=== PATIENT | male | born 1955 | race Caucasian/White ===

== ENCOUNTER → 2022-01-18 | Outpatient (CLI) | payer MEDICARE, SELFPAY ==
--- NOTE | 2022-01-18 07:33 | ECHOCS_ITS ---
Reason For Study: S/P CABG Procedure This was a 2D Doppler, Color Flow transthoracic echocardiogram. The study was technically difficult. Due to body habitus. Contrast injection was performed. Exam performed in department. Left Ventricle Normal LV size. Left ventricular systolic function is normal. The estimated ejection fraction is 55 %. Stage 1 diastolic dysfunction. No regional wall motion abnormalities noted. Right Ventricle Normal RV size. Normal systolic function. Atria Normal left atrium. Normal right atrium. Mitral Valve Normal mitral valve. Tricuspid Valve The tricuspid valve is not well visualized. Aortic Valve The aortic valve is not well visualized. Pulmonic Valve The pulmonic valve is not well visualized. Great Vessels Normal aortic root. The pulmonary artery is normal size. Normal inferior vena cava. Pericardium/Pleural No pericardial effusion. Medication Diluted definity 4.0ml given slow IV push to enhance endocardial definition. MMode/2D Measurements & Calculations LVIDd: 5.5 cm IVSd: 1.1 cm Ao root diam: 3.6 cm LVIDs: 3.3 cm LVPWd: 1.1 cm RVDd: 3.2 cm FS: 39.4 % LAV(MOD-bp): 65.8 ml LA A4 area: 20.5 cm2 LA dimension(2D): 3.9 cm LAV(MOD-bp) Indexed: 28.9 ml/m2 LAV(MOD-sp2): 63.4 ml LAV(MOD-sp4): 63.4 ml Time Measurements MV dec time: 0.23 sec Doppler Measurements & Calculations MV E max jose guadalupe: 55.3 cm/sec Lat Peak E' Jose Guadalupe: 12.3 cm/sec Med Peak E' Jose Guadalupe: 11.2 cm/sec MV A max jose guadalupe: 68.3 cm/sec E/E' lat: 4.5 E/E' med: 4.9 MV E/A: 0.81 MV dec slope: 246.0 cm/sec2 Ao V2 max: 91.1 cm/sec LV V1 max: 67.0 cm/sec Ao max P.3 mmHg LV V1 max P.8 mmHg PA V2 max: 78.8 cm/sec ECHO/Echo Complete W/ Contrast Interpretation Summary Normal LV size. Left ventricular systolic function is normal. The estimated ejection fraction is 55 %. Stage 1 diastolic dysfunction. Contrast injection was performed. Ordering Physician: Cedrick Mcduffie Referring Physician: Martir Bolanos Performed By: Kecia Villalpando RDCS, RVT
--- NOTE | 2022-01-18 18:49 | STRESSREP ---
Stress Test Report Exercise myocardial perfusion stress test 66-year-old male with a history of chest pain. Stress protocol: Resting EKG demonstrates normal sinus rhythm with a rate of 75 bpm normal intervals are noted resting blood pressure is 120/74 mmHg. Patient exercised according to regular Jaspreet protocol for total duration of 6 minutes. The maximum heart rate attained was 164 bpm which was 106% of maximum predicted heart rate the maximum workload was 7 metabolic equivalents. At rest there were no ST or T wave changes noted to suggest ischemia and at peak exercise upsloping ST changes were noted with did not meet the criteria for ischemia. No clinical angina was noted and test was terminated due to dyspnea and fatigue and the target heart rate being achieved. The peak blood pressure was 178/70 mmHg. Myocardial perfusion protocol. 15.0 mCi of technetium 99m sestamibi was injected at rest. The patient exercised according to regular Jaspreet protocol for total duration of 6 minutes. At peak exercise 44.9 mCi of technetium 99m sestamibi was injected. Stress and rest images were reconstructed and compared in the short axis vertical long and horizontal long axis. Gated images were also obtained to Perfusion SPECT analysis: Review of the stress images demonstrate normal uptake of tracer noted in all areas of the myocardium. The resting images similar demonstrate normal uptake of tracer noted in all areas of the myocardium. No areas of reversibility are noted suggest ischemia and no previous infarct is noted. Gated SPECT analysis: The gated ejection fraction is 58%. Conclusion: Normal exercise myocardial perfusion stress test at a moderate workload. Preserved ejection fraction.
== END | disposition home or self-care (01) ==
PROVIDERS: PCP Internal Medicine; Referring Provider Internal Medicine Cardiovascular Disease; Visit Provider Internal Medicine Cardiovascular Disease
DX: I25.10 Atherosclerotic heart disease of native coronary artery without angina pectoris (principal); Z95.1 Presence of aortocoronary bypass graft
CPT/HCPCS: 78452; 93017; 93306; A9500; Q9957; A4216; C8929

== ENCOUNTER → 2025-05-11 | Outpatient (CLI) | payer MEDICARE, SELFPAY ==
--- OUTSIDE RECORDS SUMMARY | 2025-05-11 07:04 | XMS RPT_ITS | CCD ---
Author Organization [facility] Care Team Providers Care Bleach Chlorinator Name Role Phone DWIGHT DU Unavailable Unavailable DWIGHT DU Unavailable Unavailable Martir Muller Unavailable Unavailable Luis Miguel DOE, Martir Yang Primary Care Provider Dr. Martir Muller Primary Care Provider Shelia Cruz Attending Provider Unavailable Dr. Martir Muller Referring Provider Dr. Cedrick Mcduffie Attending Provider Martir Muller MD Primary Care Provider Martir Muller MD Primary Care Provider LUIS MIGUEL DOE, DR MCMAHAN Primary Care Physician LUIS MIGUEL DOE, DR MCMAHAN Primary Care Unavaila BARB Le DO Attending Unavailable Martir Muller MD Primary Care Provider Sanchez SPE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, Jennifer M Unavailable EULA DÍAZ Attending Unavailable MARTIR MULLER Primary Care Unavailable MARTIR MULLER Referring Unavailable MARTIR MULLER Primary Care Unavailable MARTIR MULLER Attending Unavailable MARTIR MULLER Primary Care Unavailable MARTIR MULLER Referring Unavailable MARTIR MULLER Primary Care Unavailable MARTIR MULLER Referring Unavailable LUIS MIGUEL, MARTIR Yang Primary Care Unavailable MARTIR MULLER Attending Unavailable MARTIR MULLER Primary Care Unavailable EULA DÍAZ Attending Unavailable MARTIR MULLER Primary Care Unavailable Cedrick Mcduffie Attending Unavailable Martir Muller Primary Care Unavailable Martir Muller Referring Unavailable Martir Muller Primary Care Unavailable Martir Muller Referring Unavailable Roof ASSEMBLER ADJUSTER, Erasto H Attending Unavailable Cedrick Mcduffie Referring Unavailable Martir Muller Primary Care Unavailable Cedrick Mcduffie Attending Unavailable Cedrick Mcduffie Referring Unavailable Martir Muller Primary Care Unavailable Cedrick Mcduffie Attending Unavailable Luis Miguel DOE, Dr. Mcmahan Primary Care Physician Dr. Martir Muller MD Referring Provider Froy DOE, Dr. Philip Attending Physician Medications Current Medications Medication Drug Class(es) Dates Sig (Normalized) Sig (Original) amLODIPine 2.5 mg oral tablet (20 sources) Dihydropyridine Calcium Channel Angeline Start: 07-11-2021 End: 07-24-2024 take 1 tablet by mouth once daily amLODIPine (NORVASC) 2.5 mg tablet Indications: Primary hypertension Take 1 tablet by mouth once daily. 90 tablet 3 07/24/2024 Active Comment on above: Take 1 tablet by marck th once daily. aspirin 81 mg delayed release oral tablet (20 sources) Platelet Aggregation Inhibitor, Nonsteroidal Anti-inflammatory Drug Start: 12-19-2021 take 1 tablet by mouth once daily Start: 03-05-2013 take 1 tablet by marck th once daily at mealtime Aspirin 81 mg Tab Indications: S/P CABG x 4 Take 1 tablet by mouth once daily. Take with food. 30 tablet 11 03/05/2013 Active Comment on above: Take 1 tablet by marck th once daily. Take with food. Take 81 mg by mouth. Take 81 mg by mouth once daily. atorvastatin 40 mg oral tablet (20 sources) HMG-CoA Reductase Inhibitor Start: 1 End: 4 take 1 tablet by mouth once daily Comment on above: Take 1 tablet by marck th daily at bedtime. benoxinate hydrochloride 4 mg/ml / fluorescein sodium 3 mg/ml ophthalmic solution (2 sources) Diagnostic Dye Start: 4 End: 4 fluorescein-benoxin ate 0.3-0.4 % 1 Drop (FLURESS) Blood-Glucose Meter monitoring kit (2 sources) Start: 5 Blood-Glucose Meter monitoring kit Indications: Type 2 diabetes mellitus with stage 2 chronic kidney disease, without long-term current use of insulin ([facility]) Glucose Meter of Choice - Kit - Dx: Other DM Code E11.22; N18.2. Insulin: No. 1 each 01/28/2025 Active Start: 01-28-2025 End: 01-29-2025 Blood-Glucose Meter monitori ng kit Indications: Type 2 diabetes mellitus with stage 2 chronic kidney disease, without long-term current use of insulin ([facility]) Glucose Meter of Choice - Kit - Dx: Other DM Code E11.22; N18.2. Insulin: No. 1 each 01/28/2025 01/29/2025 Active COMPOUNDED PRESCRIPTION (20 sources) Start: 09-30-2007 COMPOUNDED PRESCRIPTION arthermend over the counter med for arthritis 0 09/30/2007 Active Comment on above: arthermend over the counter med for arthritis dapagliflozin 10 mg oral tablet (1 source) Sodium-Glucose Cotransporter 2 Inhibitor Start: 04-23-2025 End: 05-07-2025 take 1 tablet by mouth once daily Dapagliflozin Propanediol (Farxiga) 10 mg tablet Discontinued 10 mg PO daily 90 3 April 22, 2025 11:00pm May 07, 2025 4:49pm empagliflozin 10 mg oral tablet (1 source) Sodium-Glucose Cotransporter 2 Inhibitor Start: 04-21-2025 End: 04-23-2025 take 1 tablet by mouth once daily Empagliflozin (Jardiance) 10 mg tablet Discontinued 10 mg PO DAILY 90 3 April 20, 2025 11:00pm April 23, 2025 11:47am History of coronary artery bypass surgery Diabetes mellitus Primary hypertension Hyperlipidemia Presence of aortocoronary bypass graft Type 2 diabetes mellitus without complications Essential (primary) hypertension Mixed hyperlipidemia lisinopril 40 mg oral tablet (20 sources) Angiotensin Converting Enzyme Inhibitor Start: 04-13-2021 End: 04-09-2024 take 1 tablet by mouth once daily Comment on above: Take 1 tablet by marck th once daily. metoprolol tartrate 25 mg oral tablet (20 sources) beta-Adrenergic Angeline Start: 04-13-2021 End: 04-09-2024 take 1 tablet by mouth twice daily Comment on above: Take 1 tablet by marck th twice daily. Take 1 tablet by marck th two times a day. Corsica-3 Fatty Acids (1 source) Start: 12-19-2021 take 500 mg by mouth once daily Corsica-3 Fatty Acids Active 500 MG PO DAILY December 19, 2021 12:00am Corsica-3 Fatty Acids 500 mg capsule (1 source) Start: 12-19-2021 take 1 capsule by mouth once daily omega-3/epa/fish oil (OMEGA-3 FATTY ACIDS-EPA ORAL) (20 sources) Start: 12-19-2021 omega-3/epa/fish oil (OMEGA-3 FATTY ACIDS-EPA ORAL) Take by mouth once daily. 12/19/2021 Active Start: 12-19-2021 omega-3/epa/fi sh oil (OMEGA-3 FATTY ACIDS-EPA ORAL) Take by mouth once daily. 0 12/19/2021 Active Start: 12-19-2021 omega-3/epa/fi sh oil (OMEGA-3 FATTY ACIDS-EPA ORAL) Take by mouth. 0 12/19/2021 Active Comment on above: Take by mouth. Take by mouth once d aily. phenylephrine hydrochloride 25 mg/ml ophthalmic solution (8 sources) alpha-1 Adrenergic Agonist Start: 06-09-2024 End: 06-10-2024 PHENYLephrine 2.5 % 1 Drop (AK-DILATE, JIM-SYNEPHRINE) Start: 06-09-2024 End: 06-10-2024 1 Drop, BOTH EYES, DIRECT ED, Starting on Sun06/09/24 at 1400, Until Sun06/10/24 at 0159, Administer for dilation PROTECT FROM LIGHT Start: 02-05-2024 End: 02-06-2024 PHENYLephrine 2.5 % 1 Drop ( AK-DILATE, JIM-SYNEPHRINE) Start: 01-08-2024 End: 01-09-2024 PHENYLephrine 2.5 % 1 Drop ( AK-DILATE, JIM-SYNEPHRINE) Start: 06-08-2023 End: 06-09-2023 PHENYLephrine 2.5 % 1 Drop ( AK-DILATE, JIM-SYNEPHRINE) Start: 10-24-2022 End: 10-25-2022 PHENYLephrine 2.5 % 1 Drop ( AK-DILATE, JIM-SYNEPHRINE) proparacaine hydrochloride 5 mg/ml ophthalmic solution (6 sources) Local Anesthetic Start: 06-09-2024 End: 06-10-2024 proparacaine 0.5 % 1 Drop (ALCAINE) Start: 06-09-2024 End: 06-10-2024 1 Drop, BOTH EYES, DIRECT ED, Starting on Sun06/09/24 at 1400, Until Sun06/10/24 at 0159, Administer for pneumo tonometry, tonopen tonometry, or pachymetry. In the event of a proparacaine shortage, administer tetracaine 0.5% ophthalmic drops 1 drop in the left eye as directed for pneumo tonometry, tonopen tonometry, or pachymetry Start: 01-08-2024 End: 01-09-2024 proparacaine 0.5 % 1 Drop (A LCAINE) Start: 06-08-2023 End: 06-09-2023 proparacaine 0.5 % 1 Drop (A LCAINE) Start: 10-24-2022 End: 10-25-2022 proparacaine 0.5 % 1 Drop (A LCAINE) Semaglutide (1 source) Start: 04-21-2025 End: 05-07-2025 Semaglutide (Ozempic) 0.25 mg or 0.5 mg (2 mg/3 mL) pen injector Discontinued 0.25 mg SC EVERY WEEK 3 28 0 April 20, 2025 11:00pm May 18, 2025 12:00am May 07, 2025 4:49pm History of coronary artery bypass surgery Diabetes mellitus Primary hypertension Hyperlipidemia Presence of aortocoronary bypass graft Type 2 diabetes mellitus without complications Essential (primary) hypertension Mixed hyperlipidemia for 4 weeks tropicamide 10 mg/ml ophthalmic solution (8 sources) Anticholinergic Start: 06-09-2024 End: 06-10-2024 tropicamide 1 % 1 Drop (MYDRIACYL) Start: 06-09-2024 End: 06-10-2024 1 Drop, BOTH EYES, DIRECT ED, Starting on Sun06/09/24 at 1400, Until Sun06/10/24 at 0159, Administer for dilation Start: 02-05-2024 End: 02-06-2024 tropicamide 1 % 1 Drop (MYDR IACYL) Start: 01-08-2024 End: 01-09-2024 tropicamide 1 % 1 Drop (MYDR IACYL) Start: 06-08-2023 End: 06-09-2023 tropicamide 1 % 1 Drop (MYDR IACYL) Start: 10-24-2022 End: 10-25-2022 tropicamide 1 % 1 Drop (MYDR IACYL) Completed/Discontinued Medications Medication Drug Class(es) Dates Sig (Normalized) Sig (Original) cyclobenzaprine hydrochloride 10 mg oral tablet (11 sources) Muscle Relaxant Start: 05-10-2023 End: 10-18-2023 take 1 tablet by mouth three times daily as needed for muscle spasms cyclobenzaprine (FLEXERIL) 10 mg tablet Indications: Spasm of muscle of lower back Take 1 tablet by mouth three times a day as needed for muscle spasm. 30 tablet 0 05/10/2023 10/18/2023 Discontinued Start: 10-05-2022 End: 10-08-2022 take 1 tablet by mouth three times daily Flexeril use cyclobenzaprine Dose : 10 mg =, Oral, TID, X 3 day(s), # 8 tab(s), 0 Refill(s), 10/08/22 22:57:00 EDT Start Date: 10/05/22 Stop Date: 10/08/22 Status: Ordered Comment on above: Take 1 tablet by marck th three times a day as needed for muscle spasm. meloxicam 15 mg oral tablet (13 sources) Nonsteroidal Anti-inflammatory Drug Start: End: take 1 tablet by mouth once daily at mealtime meloxicam (MOBIC) 15 mg tablet Indications: Spasm of muscle of lower back , Stiff neck Take 1 tablet by mouth once daily. With food. 30 tablet 0 05/10/2023 10/18/2023 Discontinued Start: 04-18-2023 End: 05-03-2023 take 1 tablet by mouth once daily at mealtime meloxicam (MOBIC) 15 mg tablet Indications: Stiff neck , Spasm of muscle of lower back Take 1 tablet by mouth once daily for 15 days. With food. 15 tablet 0 04/18/2023 05/03/2023 Active Comment on above: Take 1 tablet by marck th once daily for 15 days. With food. Take 1 tablet by marck th once daily. With food. Corsica-3 Fatty Acids (FISH OIL) 500 mg cap (2 sources) Start: 07-17-2013 take 2 capsules by mouth once daily Corsica-3 Fatty Acids (FISH OIL) 500 mg cap Take 2 capsules by mouth once daily. 0 07/17/2013 Active Comment on above: Take 2 capsules by m outh once daily. Corsica-3 Fatty Acids 500 mg cap (19 sources) Start: 07-17-2013 End: 10-18-2023 take 2 capsules by mouth once daily Corsica-3 Fatty Acids 500 mg cap Take 2 capsules by mouth once daily. 0 07/17/2013 10/18/2023 Discontinued Start: 07-17-2013 take 2 capsules by m outh once daily Corsica-3 Fatty Acids 500 mg cap Take 2 capsules by mouth once daily. 0 07/17/2013 Active Comment on above: Take 2 capsules by m outh once daily. Problems Active Problems Problem Classification Problem Date Documented Date Episodic/Chronic Blindness and vision defects (10 sources) Bilateral regular astigmatism; Translations: [Regular astigmatism, bilateral] Episodic Cataract (5 sources) Bilateral senile combined form cataracts of eyes; Translations: [Combined forms of age-related cataract, bilateral] Chronic Chronic kidney disease (2 sources) Chronic kidney disease, stage 2 (mild); Translations: [Type 2 diabetes mellitus with stage 2 chronic kidney disease, without long-term current use of insulin (HCC)] Onset: 10-18-2021 Chronic Conduction disorders (2 sources) Bundle branch block; Translations: [Nonspecific intraventricular block] 12-19-2021 Chronic Coronary atherosclerosis and other heart disease (20 sources) Coronary arteriosclerosis; Translations: [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] Onset: 07-17-2013 07-17-2013 Chronic Diabetes mellitus with complications (20 sources) Type 2 diabetes mellitus; Translations: [Type 2 diabetes mellitus with diabetic chronic kidney disease] Onset: 10-14-2021 Chronic Diabetes mellitus without complication (11 sources) Type 2 diabetes mellitus without complication; Translations: [Type 2 diabetes mellitus without complications] Onset: 04-13-2021 Chronic Disorders of lipid metabolism (20 sources) Pure hypercholesterolemia; Translations: [Pure hypercholesterolemia, unspecified] Onset: 10-07-2007 06-28-2015 Chronic Essential hypertension (20 sources) Hypertensive disorder; Translations: [Essential (primary) hypertension] Onset: 09-30-2007 Resolved: 11-06-2012 06-26-2014 Chronic Genitourinary congenital anomalies (1 source) Congenital buried penis; 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] 05-01-2023 Chronic Immunizations and screening for infectious disease (2 sources) Patient encounter status; Translations: [Encounter for immunization] Episodic Other eye disorders (3 sources) Posterior vitreous detachment of left eye; Translations: [Vitreous degeneration, left eye] 01-08-2024 Chronic Other eye disorders (1 source) Meibomian gland dysfunction of bilateral eyes; Translations: [Meibomian gland dysfunction right eye, upper and lower eyelids] 06-09-2024 Episodic Other nutritional; endocrine; and metabolic disorders (13 sources) Obesity; Translations: [Obesity, unspecified] Onset: 09-30-2007 Resolved: 02-09-2017 02-09-2017 Chronic Other nutritional; endocrine; and metabolic disorders (3 sources) Body mass index 40+ - severely obese; Translations: [Obesity, Class III, BMI 40-49.9 (morbid obesity) ([facility])] Onset: 01-28-2025 01-28-2025 Chronic Retinal detachments; defects; vascular occlusion; and retinopathy (5 sources) Hemorrhage of left retina; Translations: [Retinal hemorrhage, left eye] Chronic Screening and history of mental health and substance abuse codes (6 sources) Ex-smoker; Translations: [Personal history of nicotine dependence] Onset: 01-28-2025 01-28-2025 Episodic Unclassified (1 source) Coronary artery bypass graft operation planned 08-30-2014 Unclassified (1 source) Obesity, Class III, BMI 40-49.9 (morbid obesity) ([facility]); Translations: [Obesity, Class III, BMI 40-49.9 (morbid obesity) ([facility])] Onset: 01-28-2025 Past or Other Problems Problem Classification Problem Date Documented Da te Episodic/Chronic Acute myocardial infarction (11 sources) Myocardial infarction; Translations: [ST elevation (STEMI) myocardial infarction of unspecified site] Onset: 02-14-2013 Resolved: 06-28-2015 06-28-2015 Chronic Cardiac dysrhythmias (11 sources) Cardiac arrhythmia; Translations: [Cardiac arrhythmia, unspecified] Onset: 09-30-2007 Resolved: 11-06-2012 11-06-2012 Chronic Coronary atherosclerosis and other heart disease (2 sources) Presence of aortocoronary bypass graft; Translations: [Aortocoronary bypass status] Onset: 02-18-2013 Episodic Diabetes mellitus without complication (12 sources) Impaired fasting glycemia; Translations: [Impaired fasting glucose] Onset: 02-07-2017 Resolved: 10-14-2021 02-07-2017 Episodic Genitourinary symptoms and ill-defined conditions (14 sources) Abnormal urinary stream; Translations: [Other difficulties with micturition] Onset: 04-13-2021 Resolved: 10-14-2021 04-13-2021 Episodic Other diseases of kidney and ureters (11 sources) Renal impairment; Translations: [Disorder of kidney and ureter, unspecified] Onset: 02-07-2017 Resolved: 04-30-2018 04-30-2018 Episodic Other liver diseases (9 sources) Elevated liver enzymes level; Translations: [Abnormal levels of other serum enzymes] Onset: 07-24-2024 07-24-2024 Episodic Other liver diseases (1 source) Abnormal levels of other serum enzymes; Translations: [Elevated liver enzymes] Onset: 07-24-2024 Episodic Other male genital disorders (13 sources) Vasculopathic erectile dysfunction; Translations: [Male erectile dysfunction, unspecified] Onset: 07-04-2016 Resolved: 04-20-2022 07-04-2016 Chronic Other nutritional; endocrine; and metabolic disorders (20 sources) Obese class II; Translations: [Obesity, unspecified] Onset: 08-07-2019 Resolved: 01-28-2025 08-07-2019 Chronic Other nutritional; endocrine; and metabolic disorders (11 sources) Obese class I; Translations: [Obesity, unspecified] Onset: 02-09-2017 Resolved: 08-07-2019 08-07-2019 Chronic Spondylosis; intervertebral disc disorders; other back problems (20 sources) Stiff neck; Translations: [Torticollis] Onset: 06-01-2023 Resolved: 10-18-2023 04-18-2023 Episodic Substance-related disorders (11 sources) Tobacco user; Translations: [Nicotine dependence, unspecified, uncomplicated] Onset: 09-30-2007 Resolved: 06-08-2011 06-08-2011 Chronic Results Test Name Value Interpretation Reference Range Facility Cardiology Visit Reporton Cardiology Visit Report [facility] [address] [place] [address] OFFICE VISIT Date of Service: 04/21/25 MR#: [id number] Acct: [id number] Name: SHAHBAZ MITTAL Rep #: [id number] : 1955 Provider: Dr. Cedrick Mcduffie MD Age/Sex: 69/M Location: [facility] Status: Signed HPI HPI History of Present Illness Details: 69-year-old man with a history of premature coronary artery disease who had a non-ST elevation myocardial infarction in January 2013. He underwent a left heart catheterization and subsequently underwent coronary bypass surgery with a left internal mammary artery to the left anterior descending artery, saphenous vein graft to first diagonal branch, saphenous vein graft to second diagonal branch, and a radial artery to the circumflex artery. He also has a history of hypertension, hyperlipidemia, and borderline diabetes mellitus. He denies chest, arm, jaw, or neck discomfort. He denies palpitations. He denies bilateral lower extremity edema. He denies claudication. He denies shortness of breath with activity, shortness of breath at rest, orthopnea, or PND. He denies chronic cough. He denies significant, sudden weight gain. He states lightheadedness when standing too quickly or bending over. He denies dizziness, near-syncope, or syncope. He denies blood in urine, blood in stool, or epistaxis. He denies fever with chills. He denies myalgia. He denies fatigue. His exercise level has remained stable. 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 Accompanied by: Self Is patient in pain?: No Allergies No Known Allergies Allergy (Verified 04/21/25 10:58) Medications ???Medication ???Instructions ???Recorded ???Confirmed ???Type amlodipine 2.5 mg tablet 2.5 mg PO DAILY 12/19/21 04/21/25 History aspirin 81 mg tablet,delayed 81 mg PO DAILY 12/19/21 04/21/25 H istory release (Adult Aspirin Regimen) atorvastatin 40 mg tablet 40 mg PO DAILY 12/19/21 04/21/25 H istory lisinopril 40 mg tablet 40 mg PO DAILY 12/19/21 04/21/25 H istory metoprolol tartrate 25 mg tablet 25 mg PO BID 12/19/21 04/21/25 His tory omega-3 fatty acids 500 mg capsule 500 mg PO DAILY 12/19/21 5 History Ejection fraction %: 55 Have you fallen in the past year?: No PFSH Medical History Obesity Diabetes Former smoker Hyperlipidemia Essential hypertension 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 Surgical History History of left heart catheterization (02/14/13) H/O coronary artery bypass surgery (02/18/13) Family History Mother Thyroid disorder Father Heart disease Social History Smoking Status: Former smoker Tobacco: How many years used: 25 how long ago did patient quit smokin years ago alcohol intake: current alcohol intake frequency: a few times a month substance use type: does not use caffeine: Yes Type: carbonated beverages Number of servings: 2 and coffee Number of servings: 1 ROS Const Const: Positive for fatigue; Negative for weakness, daytime sleepiness or difficulty sleeping ENT ENT: Negative for dizziness or Nosebleed/epistaxis Cardio Chest Pain: No Palpitations: No Edema: None Resp Respiratory: Positive for SOB with activity; Negative for SOB at rest, SOB orthopnea SOB lying down or Cough GI GI: Negative nausea, vomiting or heartburn Neuro Neuro: Negative for dizziness, lightheadedness, near syncope or weakness Endo Endo: Positive for fatigue Cardiology Exam Const Appearance: cooperative, healthy appearing, comfortable and no acute distress Nutritional Appearance: well nourished and obese Orientation: alert, awake and oriented x3 Head Head: normal to inspection Ears: hearing grossly normal bilaterally Nose: external nose normal Face and Sinus: face symmetric Mouth: moist mucous membranes Eyes General: appearance normal, both eyes and all related structures Eyelids: eyelids normal EOM: EOM intact bilaterally Neck Neck: normal visual inspection and no JVD Carotids: normal carotid upstroke Chest Chest inspection: normal inspection of the chest, symmetric chest movement and normal respiratory effort; Negative cough Auscultation: Bilateral: Clear to Auscultation Cardio Rate: (more content not included)... Normal [facility] CNOVon 01-28-2025 CNOV Office Visit (INT[facility] ) ----- SHAHBAZ MITTAL ([id number]) 1955 M Date Time Provider Department 01/28/25 10:20 AM MARTIR MULLER [facility] During your visit today, we recorded the following information about you: Pulse Blood pressure Weight Height 70/minute 124/84 121.7 kg 1.721 m Martir Muller MD 01/28/2025 11:07 AM Signed Shahbaz Mittal is a 69 year old male here for a Medicare wellness visit. Medicare Health Risk Assessment General Health Very good Exercise: Minutes/Day 40 min Exercise: Days/Week 3 days Alcohol: Daily Use Monthly or less Alcohol: Drinks/Day 1 or 2 Alcohol: 6 or more drinks Never Feel off balance No Concerns: Teeth/Dentures No Concerns: Sexual function No Troubled by feelings None of the above Frequency: Eating healthy diet More than half the days ADLs requiring help None of the above Safety precautions in home/vehicle Yes Smoke, vape, chews tobacco No Difficulty hearing Yes Difficulty seeing No Current Providers Specialists: I have reviewed specialist-related care of the patient in the medical record. Current care team: Patient Care Team: Martir Muller MD as PCP - General (Internal Medicine) Jennifer Bradford, ZAIDA.HYDROPONICS WORKER as Materials Intern (Internal Medicine) Eula Díaz OD (Optometry) Outside specialists seen: Cedrick Mcduffie MD or Erasto Grant (Cardiology) Medical/Family history review Reviewed and updated problem list, medical/surgical/family/s ocial history, medications, and allergies. Opioid use review Opioid Medications (last 90 days) No data to display Anxiety/Depression screening PHQ-2 Score: 0 (Lower risk for depression) CHANDRIKA-2 Score: 0 (Lower risk for anxiety) Recommendation: no further intervention at this time Cognitive screening Mini Cog Score: 4 Cognitive screening reviewed and No further action needed (score 3-5). Functional Observation Was the patient's Timed Up AND Go test unsteady or >= 12 seconds? No Advance Care Planning Surrogate decision maker and/or advance care plan documented Measurements BP 124/84 Pulse 70 Ht 172.1 cm (5' 7.75") Wt 121.7 kg (268 lb 4.8 oz) BMI 41.10 kg/m? Vision Screening: Follows with optometry/ophthalmology Right: 25 Left: 20 25 Both: 2025 Assessment/Plan Medicare annual wellness visit, subsequent (Z00.00) - Counseled on healthy diet and regular exercise - Fall avoidance information provided - Personalized prevention plan provided - Discussed need for and benefit of weight loss. BMI 41.10 kg/(m2) - Counseled patient on alcohol intake and associated health risks Martir Muller MD 01/28/2025 10:44 AM Signed Screening schedule The following prevention plan is recommended: Depression Screening Never done Anxiety Screening Never done DTaP,Tdap,Td Vaccine(1 - Tdap) due on 08/31/2014 Advance Directive Discussion due on 07/02/2024 Medicare Advantage Annual Wellness Visit due on 07/02/2024 Diabetic Foot Exam due on 10/17/2024 WHAT YOU CAN DO TO PREVENT FALLS Many falls can be prevented. By making some changes, you can lower your chances of falling. Four things YOU can do to prevent falls for you* and your caregiver 1. Begin a regular exercise program Exercise is one of the most important ways to lower your chances of falling. It makes you stronger and helps you feel better. Exercises that improve balance and coordination (like Choco Chi) are the most helpful. Lack of exercise leads to weakness and increases your chances of falling. Ask your doctor or health care provider about the best type of exercise program for you. 2. Have your health care provider review your medicines Have your doctor or pharmacist review all the medicines you take, even pial-kwm-lgyogrc medicines. As you get older, the way medicines work in your body can change. Some medicines, or combinations of medicines, can make you sleepy or dizzy and can cause you to fall. 3. Have your vision checked Have your eyes checked by an eye doctor at least once a year. You may be wearing the wrong glasses or have a condition like glaucoma or cataracts that limits your vision. Poor vision can increase your chances of falling. 4. Make your home safer About half of all falls happen at home. To make your home safer: Remove things you can trip over (like papers, books, clothes, and shoes) from stairs and places where you walk. Remove small throw rugs or use double-sided tape to keep the rugs from slipping. Keep items you use often in cabinets you can reach easily without using a step stool. Have grab bars put in next to your toilet and in the tub or shower. Use non-slip mats in the bathtub and on shower floors. Improve the lighting in your home. As you get older, you need brighter lights to see well. Hang light-weight curtains or shades to reduce glare. Have handrails and lights put in on al (more content not included)... Normal [facility] CBC panel Auto (Bld)on 01-19 Erythrocyte distribution width (RBC) [Ratio] 14.1 % Normal 11.5-15.0 [facility] Comment on above: Order Comment: Juan Jose chavarria Type: BLOOD SPECIMEN Ordering Facility: [facility] Address: [address] [place] [address] Performed By: #### 2 4323-8 #### [facility] [id number] [address] [place] [address] [place] Hematocrit (Bld) [Volume fraction] 43.4 % Normal 39.0-51.0 [facility] Comment on above: Order Comment: Juan Jose chavarria Type: BLOOD SPECIMEN Ordering Facility: [facility] Address: [address] [place] [address] Performed By: #### 2 4323-8 #### [facility] CLIA [id number] [address] [place] [address] [place] Hemoglobin (Bld) [Mass/Vol] 14.4 g/dL Normal 13.0-17.0 [facility] Comment on above: Order Comment: Speci men Type: BLOOD SPECIMEN Ordering Facility: [facility] Address: [address] [place] [address] Performed By: #### 2 4323-8 #### [facility] CLIA [id number] [address] [place] [address] [place] MCH (RBC) [Entitic mass] 28.8 pg Normal 26.0-34.0 [facility] Comment on above: Order Comment: Speci men Type: BLOOD SPECIMEN Ordering Facility: [facility] Address: [address] [place] [address] Performed By: #### 2 4323-8 #### [facility] [id number] [address] [place] [address] [place] MCHC (RBC) [Mass/Vol] 33.2 g/dL Normal 30.5-36.0 [facility] Comment on above: Order Comment: Speci men Type: BLOOD SPECIMEN Ordering Facility: [facility] Address: [address] [place] [address] Performed By: #### 2 4323-8 #### [facility] CLIA [id number] [address] [place] [address] [place] MCV (RBC) [Entitic vol] 86.8 fL Normal 80.0-100.0 [facility] Comment on above: Order Comment: Speci men Type: BLOOD SPECIMEN Ordering Facility: [facility] Address: [address] [place], [place] [address] Performed By: #### 2 4323-8 #### [facility] CLIA [id number] [address] [place] [address] [place] Nucleated RBC (Bld) [#/Vol] 10*3/uL Normal <0.01 [facility] Comment on above: Order Comment: Speci men Type: BLOOD SPECIMEN Ordering Facility: [facility] Address: [address] [place] [address] Performed By: #### 2 4323-8 #### [facility] CLIA [id number] [address] [place] [address] [place] Platelet mean volume (Bld) [Entitic vol] 10.4 fL Normal 9.0-12.7 [facility] Comment on above: Order Comment: Speci men Type: BLOOD SPECIMEN Ordering Facility: [facility] Address: [address] [place] [address] Performed By: #### 2 4323-8 #### [facility] CLIA [id number] [address] [place] [address] [place] Platelets (Bld) [#/Vol] 248 10*3/uL Normal 150-400 [facility] Comment on above: Order Comment: Speci men Type: BLOOD SPECIMEN Ordering Facility: [facility] Address: [address] [place] [address] Performed By: #### 2 4323-8 #### [facility] CLIA [id number] [address] [place] [address] [place] RBC (Bld) [#/Vol] 5.00 10*6/uL Normal 4.20-6.00 [facility] Comment on above: Order Comment: Speci men Type: BLOOD SPECIMEN Ordering Facility: [facility] Address: [address] [place] [address] Performed By: #### 2 4323-8 #### [facility] CLIA [id number] [address] [place] [address] [place] WBC (Bld) [#/Vol] 7.32 10*3/uL Normal 3.70-11.00 [facility] Comment on above: Order Comment: Speci men Type: BLOOD SPECIMEN Ordering Facility: [facility] Address: [facility] [place] [address] Performed By: #### 2 4323-8 #### [facility] CLIA [id number] [address] [place] [address] [place] Comprehensive metabolic 2000 panelon 01-19-2025 Albumin [Mass/Vol] 4.3 g/dL Normal 3.9-4.9 [facility] Comment on above: Order Comment: Speci men Type: BLOOD SPECIMEN Ordering Facility: [facility] Address: [address] [place] [address] Performed By: #### 2 4323-8 #### [facility] CLIA [id number] [address] [place] [address] [place] ALP [Catalytic activity/Vol] 55 U/L Normal 38-113 [facility] Comment on above: Order Comment: Speci men Type: BLOOD SPECIMEN Ordering Facility: [facility] Address: [address] [place] [address] Performed By: #### 2 4323-8 #### [facility] CLIA [id number] [address] [place] [address] [place] ALT [Catalytic activity/Vol] 64 U/L High 10-54 [facility] Comment on above: Order Comment: Speci men Type: BLOOD SPECIMEN Ordering Facility: [facility] Address: [address] [place] [address] Performed By: #### 2 4323-8 #### [facility] CLIA [id number] [address] [place] [address] [place] Anion gap [Moles/Vol] 16 mmol/L High 8-15 [facility] Comment on above: Order Comment: Speci men Type: BLOOD SPECIMEN Ordering Facility: [facility] Address: [address] [place] [address] Performed By: #### 2 4323-8 #### [facility] CLIA [id number] [address] [place] [address] [place] AST [Catalytic activity/Vol] 33 U/L Normal 14-40 [facility] Comment on above: Order Comment: Speci men Type: BLOOD SPECIMEN Ordering Facility: [facility] Address: [address] [place] [address] Performed By: #### 2 4323-8 #### [facility] CLIA [id number] [address] [place] [address] [place] Bilirubin [Mass/Vol] 0.4 mg/dL Normal 0.2-1.3 [facility] Comment on above: Order Comment: Speci men Type: BLOOD SPECIMEN Ordering Facility: [facility] Address: [address] [place] [address] Performed By: #### 2 4323-8 #### [facility] CLIA [id number] [address] [place] [address] [place] Calcium [Mass/Vol] 9.6 mg/dL Normal 8.5-10.2 [facility] Comment on above: Order Comment: Speci men Type: BLOOD SPECIMEN Ordering Facility: [facility] Address: [address] [place] [address] Performed By: #### 2 4323-8 #### [facility] CLIA [id number] [address] [place] [address] [place] Chloride [Moles/Vol] 102 mmol/L Normal 98-107 [facility] Comment on above: Order Comment: Speci men Type: BLOOD SPECIMEN Ordering Facility: [facility] Address: [address] [place] [address] Performed By: #### 2 4323-8 #### [facility] CLIA [id number] [address] [place] [address] [place] CO2 [Moles/Vol] 20 mmol/L Low 22-30 [facility] Comment on above: Order Comment: Speci men Type: BLOOD SPECIMEN Ordering Facility: [facility] Address: [address] [place] [address] Performed By: #### 2 4323-8 #### [facility] CLIA [id number] [address] [place] [address] [place] Creatinine [Mass/Vol] 1.09 mg/dL Normal 0.73-1.22 [facility] Comment on above: Order Comment: Speci men Type: BLOOD SPECIMEN Ordering Facility: [facility] Address: [address] [place] [address] Performed By: #### 2 4323-8 #### [facility] [id number] [address] [place] [address] [place] eGFRcr SerPlBld CKD-EPI 2020 73 mL/min/1.73m??? Normal >=60 [facility] Comment on above: Order Comment: Speci men Type: BLOOD SPECIMEN Ordering Facility: [facility] Address: [address] [place] [address] Result Comment: Rocio mated Glomerular Filtration Rate (eGFR) is calculated using the 2020 CKD-EPI creatinine equation. This equation utilizes serum creatinine, sex, and age as parameters. The creatinine assay has traceable calibration to isotope dilution-mass spectrometry. Refer to KDIGO guidelines for clinical interpretation. In patients with unstable renal function, e.g. those with acute kidney injury, the eGFR may not accurately reflect actual GFR. Performed By: #### 2 4323-8 #### [facility] CLIA [id number] [address] [place] [address] [place] Glucose [Mass/Vol] 161 mg/dL High 74-99 [facility] Comment on above: Order Comment: Speci men Type: BLOOD SPECIMEN Ordering Facility: [facility] Address: [address] [place] [address] Result Comment: The [place] Diabetes Association (ADA) provides guidance for cutoff values for fasting glucose and random glucose. The ADA defines fasting as no caloric intake for at least 8 hours. Fasting plasma glucose results between 100 to 125 mg/dL indicate increased risk for diabetes (prediabetes). Fasting plasma glucose results greater than or equal to 126 mg/dL meet the criteria for diagnosis of diabetes. In the absence of unequivocal hyperglycemia, results should be confirmed by repeat testing. In a patient with classic symptoms of hyperglycemia or hyperglycemic crisis, random plasma glucose results greater than or equal to 200 mg/dL meet the criteria for diagnosis of diabetes. Reference: Standards of Medical Care in Diabetes 2016, [place] Diabetes Association. Diabetes Care. 2016.39(Suppl 1). Performed By: #### 2 4323-8 #### [facility] CLIA [id number] [address] [place] [address] [place] Potassium [Moles/Vol] 4.2 mmol/L Normal 3.7-5.1 [facility] Comment on above: Order Comment: Miriami aura Type: BLOOD SPECIMEN Ordering Facility: [facility] Address: [address] [place] [address] Performed By: #### 2 4323-8 #### [facility] [id number] [address] [place] [address] [place] Protein [Mass/Vol] 7.3 g/dL Normal 6.3-8.0 [facility] Comment on above: Order Comment: Miriami aura Type: BLOOD SPECIMEN Ordering Facility: [facility] Address: [address] [place], [place] [address] Performed By: #### 2 4323-8 #### [facility] CLIA [id number] [address] [place] [address] [place] Sodium [Moles/Vol] 138 mmol/L Normal 136-144 [facility] Comment on above: Order Comment: Miriami men Type: BLOOD SPECIMEN Ordering Facility: [facility] Address: [address] [place] [address] Performed By: #### 2 4323-8 #### [facility] CLIA [id number] [address] [place] [address] [place] Urea nitrogen [Mass/Vol] 15 mg/dL Normal 9-24 [facility] Comment on above: Order Comment: Juan Jose chavarria Type: BLOOD SPECIMEN Ordering Facility: [facility] Address: [address] [place] [address] Performed By: #### 2 4323-8 #### [facility] CLIA [id number] [address] [place] [address] [place] HBV core Ab Ser Qlon 025 HBV core Ab Ql (S) Negative Normal Negative [facility] Comment on above: Order Comment: Juan Jose chavarria Type: BLOOD SPECIMEN Ordering Facility: [facility] Address: [address] [place] [address] Result Comment: No e vidence of current or past infection with Hepatitis B virus. Should recent infection be suspected, repeat testing may be considered 3-4 weeks after this draw. Performed By: #### 5 5454-3 #### [facility] CLIA [id number] [address] [place] [address] [place] HBV surface Ab Ql (S)on 12-31 HBV surface Ab Qn (S) <8.00 Normal [facility] Comment on above: Order Comment: Juan Jose chavarria Type: BLOOD SPECIMEN Ordering Facility: [facility] Address: [address] [place] [address] Result Comment: <8 m IU/mL: No serological evidence of immunity to Hepatitis B Virus. >/= 8 to <12 mIU/mL: No serological evidence of immunity to Hepatitis B Virus. >/= 12 mIU/mL: Consistent with serological evidence of immunity to Hepatitis B Virus. Performed By: #### 2 4323-8 #### [facility] CLIA [id number] [address] [place] [address] [place] HBV surface Ab Ser Qlon 12-31 HBV surface Ab Ql (S) Negative Normal [facility] Comment on above: Order Comment: Speci men Type: BLOOD SPECIMEN Ordering Facility: [facility] Address: [address] [place] [address] Result Comment: No s erological evidence of immunity to Hepatitis B Virus. Performed By: #### 2 4323-8 #### [facility] CLIA [id number] [address] [place] [address] [place] HBV surface Ag Ser Qlon 12-31 HBV surface Ag Ql (S) Negative Normal Negative [facility] Comment on above: Order Comment: Speci men Type: BLOOD SPECIMEN Ordering Facility: [facility] Address: [address] [place] [address] Performed By: #### 2 4323-8 #### [facility] CLIA [id number] [address] [place] [address] [place] HCV Ab Ser Qlon 01-19-2025 HCV Ab Ql (S) Negative Normal Negative [facility] Comment on above: Order Comment: Speci [facility] Type: BLOOD SPECIMEN Ordering Facility: [facility] Address: [address] [place] [address] Result Comment: The result suggests no evidence of infection with Hepatitis C virus. Should recent infection be suspected, repeat testing may be considered 4-6 weeks after this draw. Performed By: #### 2 4323-8 #### [facility] CLIA [id number] [address] [place] [address] [place] HbA1c (Bld)on 01-19-2025 Average glucose Estimated from glycated hemoglobin (Bld) [Mass/Vol] 151 mg/dL Normal [facility] Comment on above: Order Comment: Speci [facility] Type: BLOOD SPECIMEN Ordering Facility: [facility] Address: [address] [place] [address] Result Comment: eAG: (Estimated average glucose) is a calculated value from HgbA1c and is sales donor recruitment representative of the average blood glucose level in the last 2-3 month period. Performed By: #### 5 5454-3 #### [facility] CLIA [id number] [address] [place] HbA1c (Bld) [Mass fraction] 6.9 % High 4.3-5.6 [facility] Comment on above: Order Comment: Speci men Type: BLOOD SPECIMEN Ordering Facility: [facility] Address: [address] [place], [place] [address] [address] Result Comment: [place] Diabetes Association guidelines indicate that patients with HgbA1c in the range 5.7-6.4% are at increased risk for development of diabetes, and intervention by lifestyle modification may be beneficial. HgbA1c greater or equal to 6.5% is considered diagnostic of diabetes. Performed By: #### 5 5454-3 #### [facility] CLIA [id number] [address] [place] [address] [place] US ABD RIGHT UPPER QUADRANTo n 01-19-2025 US ABD RIGHT UPPER QUADRANT * * *Final Report* * * DATE OF EXAM: Jan 19 2025 9:28AM WRU 1032 - US ABD RIGHT UPPER QUADRANT / PROCEDURE REASON: Elevated liver enzymes * * * * Physician Interpretation * * * * EXAMINATION: RIGHT UPPER QUADRANT ULTRASOUND /ULTRASOUND SPLEEN HISTORY: Elevated liver enzymes TECHNIQUE: Sonography of the right upper quadrant was performed. Images were obtained and stored in a permanent archive. MQ: URUQ_1 COMPARISON: None. RESULT: Pancreas: Pancreas not well seen due to overlying bowel gas. Liver: Incompletely visualized RIGHT side of the liver cannot be well seen. Echogenicity: Heterogeneous Surface contour: Smooth Lesions: None seen Biliary: No intrahepatic bile duct dilatation CBD: Normal in size at the hilum. Gallbladder: -Contents: No stones or sludge -Wall: No gallbladder wall thickening -Other: No pericholecystic edema Right Kidney: Grossly unremarkable Spleen: Normal in size and otherwise unremarkable Ascites: No ascites is seen Main portal vein: Unremarkable IMPRESSION: Liver suboptimally seen. Findings suggest there may be fatty changes in the liver. Note: Several other conditions can mimic fatty liver on ultrasound. These include things such as large body habitus, cirrhosis, hepatitis, fibrosis as well as other conditions. Therefore, the findings on this study should be correlated with other clinical data to evaluate the liver.. Head Of Physics: ALEXIS Transcribe Date/Time: Jan 20 2025 10:24A Dictated by : CHHAYA COBB DO This examination was interpreted and the report reviewed and electronically signed by: CHHAYA COBB DO on Jan 20 2025 10:28AM EST [id number] Normal [facility] US ABD SPLEEN -NBon 01-20-20 25 US ABD SPLEEN -NB * * *Final Report* * * DATE OF EXAM: Jan 19 2025 9:28AM WRU 1232 - US ABD SPLEEN -NB / PROCEDURE REASON: Elevated liver enzymes * * * * Physician Interpretation * * * * EXAMINATION: RIGHT UPPER QUADRANT ULTRASOUND /ULTRASOUND SPLEEN HISTORY: Elevated liver enzymes TECHNIQUE: Sonography of the right upper quadrant was performed. Images were obtained and stored in a permanent archive. MQ: URUQ_1 COMPARISON: None. RESULT: Pancreas: Pancreas not well seen due to overlying bowel gas. Liver: Incompletely visualized RIGHT side of the liver cannot be well seen. Echogenicity: Heterogeneous Surface contour: Smooth Lesions: None seen Biliary: No intrahepatic bile duct dilatation CBD: Normal in size at the hilum. Gallbladder: -Contents: No stones or sludge -Wall: No gallbladder wall thickening -Other: No pericholecystic edema Right Kidney: Grossly unremarkable Spleen: Normal in size and otherwise unremarkable Ascites: No ascites is seen Main portal vein: Unremarkable IMPRESSION: Liver suboptimally seen. Findings suggest there may be fatty changes in the liver. Note: Several other conditions can mimic fatty liver on ultrasound. These include things such as large body habitus, cirrhosis, hepatitis, fibrosis as well as other conditions. Therefore, the findings on this study should be correlated with other clinical data to evaluate the liver.. Head Of Physics: ALEXIS Transcribe Date/Time: Jan 20 2025 10:24A Dictated by : CHHAYA COBB DO This examination was interpreted and the report reviewed and electronically signed by: CHHAYA COBB DO on Jan 20 2025 10:28AM EST [id number] Normal [facility] Cardiology Visit Reporton Cardiology Visit Report [facility] [address] [place], [place] [address] OFFICE VISIT Date of Service: 08/19/24 MR#: [id number] Acct: [id number] Name: SHAHBAZ MITTAL Rep #: [id number] : 1955 Provider: YULY cox Age/Sex: 69/M Location: [facility] Status: Signed HPI HPI History of Present Illness Details: 69-year-old man with a history of premature coronary artery disease who had a non-ST elevation myocardial infarction in January 2013. He underwent a left heart catheterization and subsequently underwent coronary bypass surgery with a left internal mammary artery to the left anterior descending artery, saphenous vein graft to first diagonal branch, saphenous vein graft to second diagonal branch, and a radial artery to the circumflex artery. He also has a history of hypertension, hyperlipidemia, and borderline diabetes mellitus. He denies chest, arm, jaw, or neck discomfort. He denies palpitations. He denies bilateral lower extremity edema. He denies claudication. He denies shortness of breath with activity, shortness of breath at rest, orthopnea, or PND. He denies chronic cough. He denies significant, sudden weight gain. He states lightheadedness when standing too quickly or bending over. He denies dizziness, near-syncope, or syncope. He denies blood in urine, blood in stool, or epistaxis. He denies fever with chills. He denies myalgia. He denies fatigue. His exercise level has remained stable. He states he is hoping to lose 20 pounds by next office visit. 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: No Is patient in pain?: No Allergies No Known Allergies Allergy (Verified 08/19/24 11:21) Medications ???Medication ???Instructions ???Recorded ???Confirmed ???Type amlodipine 2.5 mg tablet 2.5 mg PO DAILY 12/19/21 08/19/24 History aspirin 81 mg tablet,delayed 81 mg PO DAILY 12/19/21 08/19/24 H istory release (Adult Aspirin Regimen) atorvastatin 40 mg tablet 40 mg PO DAILY 12/19/21 08/19/24 H istory lisinopril 40 mg tablet 40 mg PO DAILY 12/19/21 08/19/24 H istory metoprolol tartrate 25 mg tablet 25 mg PO BID 12/19/21 08/19/24 His tory omega-3 fatty acids 500 mg capsule 500 mg PO DAILY 12/19/21 5 History Ejection fraction %: 55 Have you fallen in the past year?: No PFSH Medical History Obesity Diabetes Former smoker Hyperlipidemia Essential hypertension 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 Surgical History History of left heart catheterization (02/14/13) H/O coronary artery bypass surgery (02/18/13) Family History Mother Thyroid disorder Father Heart disease Social History Smoking Status: Former smoker Tobacco: How many years used: 25 how long ago did patient quit smokin years ago alcohol intake: current alcohol intake frequency: a few times a month substance use type: does not use caffeine: Yes Type: carbonated beverages Number of servings: 2 and coffee Number of servings: 1 ROS Const Const: Negative for fatigue or weakness Eyes Eyes: Negative for change in vision ENT ENT: Negative for dizziness or balance problems Cardio Chest Pain: No Palpitations: No Edema: None Muscle aches with walking: None Additional Details: C/o intermittent feeling of legs feeling heavy and tingling Resp Respiratory: Negative for SOB with activity, SOB at rest or SOB orthopnea SOB lying down GI GI: Negative nausea or heartburn : Negative for hematuria or frequent nighttime urination/ nocturia Musc Musc: Negative for balance problems Skin Skin: Negative non-healing lesions or rash Neuro Neuro: Positive for lightheadedness (When standing up quickly or after bending over); Negative for dizziness, near syncope, syncope or weakness Endo Endo: Negative for fatigue Allergy Allergy/Immunology: Negative for rash Cardiology Exam Const Appearance: cooperative, healthy appearing, comfortable and no acute distress Nutritional Appearance: well nourished and obese Orientation: alert, awake and oriented x3 Head Head: normal to inspection Ears: hearing grossly normal bilaterally Nose: external nose normal Face and Sinus: face symmetric Mouth: moist mucous membranes Eyes General: appearance normal, both eyes and all related structure (more content not included)... Normal [facility] CNOVon 07-24-2024 CNOV Office Visit (INTMWS ) ----- SHAHBAZ MITTAL ([id number]) 1955 M Date Time Provider Department 07/24/24 11:20 AM MARTIR MULLER INTMWS During your visit today, we recorded the following information about you: Temperature Pulse Respiration Blood pressure 98.2 degrees 69/minute 24/minute 127/83 Weight 121 kg Martir Muller MD 07/24/2024 12:45 PM Signed This note was created using Totango. Subjective Shahbaz Mittal is a 68 year old male. He was doing well and had no new concerns. We reviewed his test results. His home glucose readings were reported to be in the 130- 150 range fasting. Review of Systems Constitutional: Negative for fatigue and unexpected weight change. Respiratory: Negative for cough and shortness of breath. Cardiovascular: Negative for chest pain, palpitations and leg swelling. Gastrointestinal: Negative for abdominal pain, constipation, diarrhea, nausea and vomiting. Neurological: Negative for dizziness and headaches. ACTIVE PROBLEM LIST Pure Hypercholesterolemia Cad (Coronary Artery Disease) Hypertension S/P Cabg X 4 Obesity, Class II, Bmi 35-39.9 Type 2 Diabetes Mellitus With Stage 2 Chronic Kidney Disease, Without Long-Term Current Use of Insulin ([facility]) ([facility]) Social History Tobacco Use Smoking status: Former Types: Pipe Quit date: 10/30/2001 Years since quittin.7 Smokeless tobacco: Former Tobacco comments: 4-5 pipes per day, 30 years Vaping Use Vaping status: Never Used Substance Use Topics Alcohol use: Yes Comment: 2 beer per month Drug use: Not Currently Types: Marijuana Current Outpatient Medications Medication Sig lisinopril (ZESTRIL) 40 mg tablet Take 1 tablet by mouth once daily. atorvastatin (LIPITOR) 40 mg tablet Take 1 tablet by mouth daily at bedtime. metoprolol tartrate, short acting, (LOPRESSOR) 25 mg tablet Take 1 tablet by mouth two times a day. Lancets Test blood sugar(s) 1 times daily. Dx: Type 2 DM - Controlled E11.9 Insulin: No blood sugar diagnostic (BLOOD GLUCOSE TEST) test strip Test blood sugar(s) 1 times daily. Dx: Type 2 DM - Controlled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 16:30-0400 Heart rate 98 /min Milton Andino PA-C Work Phone: [facility] 05-01-2023 16:30-0400 Respiratory rate 16 /min Milton Andino PA-C Work Phone: [facility] 05-01-2023 16:30-0400 SaO2% (BldA) [Mass fraction] 96 % Milton Andino PA-C Work Phone: [facility] 05-01-2023 16:30-0400 Systolic blood pressure 160 mm[Hg] Milton Andino PA-C Work Phone: [facility] 10-05-2022 21:50-0400 Diastolic Blood Pressure Non-Invasive 89 1 BARB JOSHI DO [facility] 10-05-2022 21:50-0400 Heart rate 89 /min BABR JOSHI DO [facility] 10-05-2022 21:50-0400 Respiratory rate 18 /min BARB JOSHI DO [facility] 10-05-2022 21:50-0400 Systolic Blood Pressure Non-Invasive 144 1 BARB COONEYKA DO [facility] 10-05-2022 20:55-0400 Diastolic Blood Pressure Non-Invasive 89 1 BARB JOSHI DO [facility] 10-05-2022 20:55-0400 Heart rate 82 /min BARB JOSHI DO [facility] 10-05-2022 20:55-0400 Systolic Blood Pressure Non-Invasive 137 1 BARB JOSHI DO [facility] 10-05-2022 18:13-0400 Body temperature 97.52 [degF] BARB JOSHI DO [facility] 10-05-2022 18:13-0400 Diastolic Blood Pressure Non-Invasive 65 1 BARB JOSHI DO [facility] 10-05-2022 18:13-0400 Heart rate 87 /min BARB JOSHI DO [facility] 10-05-2022 18:13-0400 Respiratory rate 18 /min BARB JOSHI DO [facility] 10-05-2022 18:13-0400 Systolic Blood Pressure Non-Invasive 151 1 BARB JOSHI DO [facility] 04-20-2022 09:21-0400 Body temperature 97.81 [degF] Martir Muller MD Work Phone: [facility] 04-20-2022 09:21-0400 Body weight 120.2 kg Martir Muller MD Work Phone: [facility] 04-20-2022 09:21-0400 Diastolic blood pressure 76 mm[Hg] Martir Muller MD Work Phone: [facility] 04-20-2022 09:21-0400 Heart rate 76 /min Martir Muller MD Work Phone: [facility] 04-20-2022 09:21-0400 Respiratory rate 16 /min Martir Muller MD Work Phone: [facility] 04-20-2022 09:21-0400 SaO2% (BldA) [Mass fraction] 97 % Martir Muller MD Work Phone: [facility] 04-20-2022 09:21-0400 Systolic blood pressure 128 mm[Hg] Martir Muller MD Work Phone: [facility] 12-20-2021 13:18-0400 Body height 173.[address] Martir Muller Work Phone: [facility] Work Phone: 12-20-2021 13:18-0400 Body mass index (BMI) [Ratio] 38.7 kg/m2 Dr. Martir Muller Work Phone: [facility] Work Phone: 12-20-2021 13:18-0400 Body weight 117.[address] Martir Muller Work Phone: [facility] Work Phone: 12-20-2021 13:18-0400 Diastolic blood pressure 87 mm[Hg] Dr. Martir Muller Work Phone: [facility] Work Phone: 12-20-2021 13:18-0400 Heart rate 74 /min Dr. Martir Muller Work Phone: [facility] Work Phone: 12-20-2021 13:18-0400 Respiratory rate 16 /min Dr. Martir Muller Work Phone: [facility] Work Phone: 12-20-2021 13:18-0400 SaO2% (BldA) [Mass fraction] 95 % Dr. Martir Muller Work Phone: [facility] Work Phone: 12-20-2021 13:18-0400 Systolic blood pressure 149 mm[Hg] Dr. Martir Muller Work Phone: [facility] Work Phone: 10-14-2021 09:27-0400 Body weight 112.4 kg Martir Muller MD Work Phone: [facility] 10-14-2021 09:27-0400 Diastolic blood pressure 82 mm[Hg] Martir Muller MD Work Phone: [facility] 10-14-2021 09:27-0400 Heart rate 60 /min Martir Muller MD Work Phone: [facility] 10-14-2021 09:27-0400 Respiratory rate 16 /min Martir Muller MD Work Phone: [facility] 10-14-2021 09:27-0400 Systolic blood pressure 136 mm[Hg] Martir Muller MD Work Phone: [facility] Encounters Encounter Date Encounter Type Care Provider Facility Start: 05-14-2025 ambulatory Cedrick Mcduffie Facility:[facility] Start: 05-11-2025 ambulatory [facility] Facility:[facility] Start: 04-21-2025 End: 04-21-[address] Cedrick Mcduffie MD -[place] [facility] Work Phone: Start: 04-21-2025 End: 04-21-2025 ambulatory Cedrick Mcduffie Facility:[facility] Start: 03-10-2025 End: 03-10-2025 Refill Martir Muller MD Work Phone: Internal [facility] [place] Comment on above: Med Change Request Start: 01-28-2025 End: 01-28-2025 ambulatory MARTIR MULLER Facility:[facility] Start: 01-28-2025 End: 01-28-2025 Patient encounter procedure Martir Muller MD Work Phone: [facility] [place] Comment on above: Medicare annual well ness visit, subsequent (Primary Dx); Screening for depression; Encounter for screening examination for other mental health and behavioral disorders; Obesity, Class III, BMI >= 40; Elevated liver enzymes; S/P CABG x 4; Type 2 diabetes mellitus with stage 2 chronic kidney disease, without long-term current use of insulin (HCC); Coronary artery disease involving tazlina coronary artery of tazlina heart without angina pectoris; Pure hypercholesterolemia Start: 01-24-2025 End: 01-24-2025 Follow-up encounter Martir Muller MD Work Phone: [facility] [place] Start: 01-19-2025 End: 01-19-2025 ambulatory MARTIR MULLER Facility:[facility] Start: 01-19-2025 End: 01-19-2025 Subsequent hospital visit by physician [facility] Work Phone: Radiology Comment on above: Elevated liver enzym es [R74.8] Start: 08-19-2024 End: 08-19-2024 ambulatory Martir Muller Facility:[facility] Start: 07-24-2024 End: 07-24-2024 ambulatory MARTIR MULLER Facility:[facility] Start: 07-24-2024 End: 07-24-2024 Office outpatient visit 25 minutes Martir Muller MD Work Phone: [facility] [place] Comment on above: Pure hypercholestero lemia (Primary Dx); Primary hypertension; Coronary artery disease involving tazlina coronary artery of tazlina heart without angina pectoris; Obesity, Class II, BMI 35-39.9; Type 2 diabetes mellitus with stage 2 chronic kidney disease, without long-term current use of insulin (HCC) (HCC); Elevated liver enzymes Start: 07-15-2024 End: 07-15-2024 ambulatory MARTIR MULLER Facility:[facility] Start: 06-09-2024 End: 06-09-2024 ambulatory EULA DÍAZ Facility:[facility] Start: 06-09-2024 End: 06-09-2024 Patient encounter procedure Eula íDaz OD Work Phone: Ophthalmology Comment on above: Type 2 diabetes wally itus without retinopathy (HCC) (Primary Dx); Posterior vitreous detachment of left eye; Combined forms of age-related cataract of both eyes; Regular astigmatism of both eyes; Presbyopia; Meibomian gland dysfunction (MGD) of upper and lower lids of both eyes Start: 04-09-2024 End: 04-09-2024 Refill Martir Muller MD Work Phone: [facility] [place] Comment on above: Refill Request Start: 02-05-2024 End: 02-05-2024 ambulatory EULA DÍAZ Facility:[facility] Start: 02-05-2024 End: 02-05-2024 Patient encounter procedure Eula Díaz OD Work Phone: Ophthalmology Comment on above: Posterior vitreous d etachment of left eye (Primary Dx); Type 2 diabetes mellitus without retinopathy (HCC); Hypertensive retinopathy of both eyes; Combined forms of age-related cataract of both eyes; Regular astigmatism of both eyes; Presbyopia Start: 01-22-2024 End: 01-22-2024 Patient encounter procedure Martir Muller MD Work Phone: Internal [facility] [place] Comment on above: Medicare annual well ness visit, subsequent (Primary Dx); Type 2 diabetes mellitus with stage 2 chronic kidney disease, without long-term current use of insulin (HCC) (HCC); Primary hypertension; Pure hypercholesterolemia; Obesity, Class II, BMI 35-39.9; Coronary artery disease involving tazlina coronary artery of tazlina heart without angina pectoris Start: 01-08-2024 End: 01-08-2024 Patient encounter procedure Eula Díaz OD Work Phone: Ophthalmology Comment on above: Posterior vitreous d etachment of left eye (Primary Dx); Type 2 diabetes mellitus without retinopathy (HCC); Hypertensive retinopathy of both eyes; Combined forms of age-related cataract of both eyes; Regular astigmatism of both eyes; Presbyopia Start: 10-18-2023 End: 10-18-2023 Patient encounter procedure Martir Muller MD Work Phone: [facility] [place] Comment on above: Type 2 diabetes wally itus with stage 2 chronic kidney disease, without long-term current use of insulin (HCC) (HCC) (Primary Dx); Primary hypertension; Pure hypercholesterolemia; Coronary artery disease involving tazlina coronary artery of tazlina heart without angina pectoris Start: 09-18-2023 ambulatory June Brower [facility] [place] Comment on above: Population Health Na vigation Outreach (Human care [facility]) Start: 09-17-2023 Refill Martir Muller MD Work Phone: Internal Medicine [place] Comment on above: Refill Request Start: 08-17-2023 Refill Martir Muller MD Work Phone: Internal Medicine [place] Comment on above: Refill Request Start: 08-02-2023 End: 08-02-2023 ambulatory Neri Zazueta [facility] Comment on above: Spasm of muscle of l ower back (Primary Dx); Stiff neck Start: 06-14-2023 End: 06-14-2023 ambulatory Ina eJnsen OZ Work Phone: [facility] Comment on above: Spasm of muscle of l ower back (Primary Dx); Stiff neck Start: 06-08-2023 End: 06-08-2023 Patient encounter procedure Eula Díaz OD Work Phone: Ophthalmology Comment on above: Type 2 diabetes wally itus without retinopathy (HCC) (Primary Dx); Hypertensive retinopathy of both eyes; Combined forms of age-related cataract of both eyes; Regular astigmatism of both eyes; Presbyopia Start: 06-07-2023 End: 06-07-2023 ambulatory Neri Zazueta [facility] Comment on above: Spasm of muscle of l ower back (Primary Dx); Stiff neck Start: 05-23-2023 End: 05-23-2023 ambulatory Neri Zazueta [facility] Comment on above: Spasm of muscle of l ower back (Primary Dx); Stiff neck Start: 05-09-2023 Telephone encounter Martir Muller MD Work Phone: Internal [facility] Comment on above: Patient Update (on b ack/neck pain and medication) Start: 05-02-2023 Telephone encounter Milton romano PA-C Work Phone: [facility] Comment on above: Appointment Start: 05-01-2023 End: 05-01-2023 Patient encounter procedure Milton Andino PA-C Work Phone: Urology Comment on above: Hidden penis (Primar y Dx); Abnormal urinary stream Start: 04-18-2023 End: 04-18-2023 Patient encounter procedure Martir Muller MD Work Phone: [facility] [place] Comment on above: Need for influenza v accination (Primary Dx); Pure hypercholesterolemia; Coronary artery disease involving tazlina coronary artery of tazlina heart without angina pectoris; Primary hypertension; Stiff neck; Spasm of muscle of lower back; Abnormal urinary stream; Type 2 diabetes mellitus with stage 2 chronic kidney disease, without long-term current use of insulin (HCC) Start: 11-07-2022 Telephone encounter Martir Muller MD Work Phone: [facility] [place] Comment on above: Blood Pressure Check Start: 11-07-2022 End: 11-07-2022 Patient encounter procedure Jennifer Emy [employer]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 Work Phone: [facility] [place] Comment on above: Primary hypertension (Primary Dx) Start: 10-24-2022 End: 10-24-2022 Patient encounter procedure Eula Díaz OD Work Phone: Ophthalmology Comment on above: Retinal hemorrhage, left eye (Primary Dx); Hypertensive retinopathy of left eye; Type 2 diabetes mellitus without retinopathy (HCC); Combined forms of age-related cataract of both eyes; Regular astigmatism of both eyes; Presbyopia Start: 10-05-2022 End: 10-06-2022 Emergency department patient visit DR MARTIR MULLER MD Facility:[facility] Start: 10-05-2022 End: 10-05-2022 Emergency department patient visit BARB JOSHI DO [facility] Start: 08-01-2022 Refill Martir Muller MD Work Phone: [facility] Comment on above: Refill Request Start: 06-13-2022 Refill Martir Muller MD Work Phone: Internal Medicine [place] Comment on above: Refill Request Start: 04-20-2022 End: 04-20-2022 Patient encounter procedure Martir Muller MD Work Phone: Internal Medicine [place] Comment on above: Type 2 diabetes wally itus with stage 2 chronic kidney disease, without long-term current use of insulin (HCC) (Primary Dx); Encounter for immunization; Pure hypercholesterolemia; Coronary artery disease involving tazlina coronary artery of tazlina heart without angina pectoris; Primary hypertension; Obesity, Class II, BMI 35-39.9 Start: 01-18-2022 Non-patient / Non-visit Dr. Maricruz Muller Work Phone: [facility] Start: 01-18-2022 End: 01-18-[address] Martir Muller Work Phone: [facility] Start: 12-20-2021 End: 12-20-[address] Martir Muller Work Phone: [facility] Start: 12-19-2021 Non-patient / Non-visit Dr. Maricruz Muller Work Phone: [facility] Start: 10-14-2021 End: 10-14-2021 Patient encounter procedure Martir Muller MD Work Phone: Internal [facility] Comment on above: Type 2 diabetes wally itus with stage 2 chronic kidney disease, without long-term current use of insulin (HCC) (Primary Dx); Primary hypertension; Coronary artery disease involving tazlina coronary artery of tazlina heart without angina pectoris Start: 09-27-2021 ambulatory Martir Muller MD Work Phone: Internal Medicine [facility] [place] Start: 11-30-2017 Ambulatory DWIGHT DU Facility :[facility] Procedures Date Procedure Procedure Detail Performing Clinician Start: 01-28-2025 Adult depression screening assessment Martir Muller MD Work Phone: Start: 01-08-2024 Computerized ophthal michael imaging retina Eula Díaz OD Work Phone: Start: 05-01-2023 Urnls dip stick/tabl et rgnt auto w/o microscopy Milton Andino PA-C Work Phone: Start: 04-18-2023 INFLUENZA VACCINE, P RSV FREE, AGE 65+ YR, HIGH DOSE, QUADRIVALENT (FLUZONE HIGH-DOSE) Martir Muller MD Work Phone: Start: 04-20-2022 INFLUENZA SEASONAL QUADRIVALENT HIGH DOSE AGE 65+ Martir Muller MD Work Phone: Start: 04-20-2022 [id number] COVI D-19 BIVALENT BOOSTER VACCINE, AGE 12+ YR Martir Muller MD Work Phone: Start: 01-18-2022 Radionuclide imaging of perfusion of myocardium under exercise stress Dr. Martir Muller Work Phone: Start: 10-14-2021 Adult depression screening assessment Martir Muller MD Work Phone: Start: 10-04-2020 Adult depression screening assessment Martir Muller MD Work Phone: Start: 05-05-2019 Colonoscopy Martir Mahoney MD Work Phone: Start: 02-09-2017 History of coronary artery bypass grafting S/P CABG x 4 Martir Muller MD Work Phone: Start: 02-18-2013 History of coronary artery bypass grafting H/O coronary artery bypass surgery Dr. Cedrick Mcduffie MD Comment on above: CABG X 4: WERNER-LAD, SVG-D1,SVG-D2,Radial Artery-LCx 02/18/2013 History of coronary artery bypass grafting S/P CABG x 4 Martir Muller MD Work Phone: Plan of Treatment Date Care Activity Detail Author Start: 05-05-2029 Colonoscopy COLONOSCOPY [facility] Start: 05-05-2029 COLORECTAL CANCER SCREENING COLORECTAL CANCER SCREENING [facility] Start: 05-05-2029 Screening for malignant neoplasm of colon [facility] Start: 10-05-2026 PROSTATE CANCER SCREENING DISCUSSION PROSTATE CANCER SCREENING DISCUSSION [facility] Start: 10-05-2026 Prostate specific antigen measurement Prostate Cancer Screening Discussion [facility] Start: 01-28-2026 Annual PCP Team Chronic Disease Visit Annual PCP Team Chronic Disease Visit [facility] Start: 01-28-2026 Anxiety Screening Anxiety Screening [facility] Start: 01-28-2026 Depression Screening Depression Screening [facility] Start: 01-28-2026 Diabetic foot examination Diabetic Foot Exam [facility] Start: 01-19-2026 Creatinine measurement Serum Creatinine [facility] Start: 07-31-2025 End: 07-31-2025 Patient encounter procedure 07/31/2025 10:40 AM EST Office Visit Internal Medicine [facility] [address] [place] [id number] Martir Muller MD [address] [place] [address] 6 month follow-up Internal Medicine [facility] Comment on above: 6 month follow-up Start: 07-24-2025 Annual PCP Team Chronic Disease Visit Annual PCP Team Chronic Disease Visit [facility] Start: 07-24-2025 Covid-19 Vaccine () Covid-19 Vaccine () [facility] Comment on above: Postponed from 03/02/2024 (Declined at t his time) Start: 07-22-2025 Hemoglobin A1c measurement HbA1C [facility] Start: 07-15-2025 Creatinine measurement Serum Creatinine [facility] Start: 07-15-2025 Hepatitis B screening Urine Albumin:Creatinine Ratio [facility] Start: 07-15-2025 Hepatitis B surface antibody level LDL Cholesterol [facility] Start: 07-13-2025 End: 10-12-2025 Comprehensive metabolic 2000 panel - Serum or Plasma COMPREHENSIVE METABOLIC PANEL Lab Routine Pure hypercholesterolemia Expected: 07/13/2025, Expires: 10/12/2025 [facility] Work Phone: Comment on above: Expected: 07/13/2025, Expires: Start: 07-13-2025 End: 10-12-2025 Hemoglobin A1c in Blood HEMOGLOBIN A1C Lab Routine Type 2 diabetes mellitus with stage 2 chronic kidney disease, without long-term current use of insulin (HCC) Expected: 07/13/2025, Expires: 10/12/2025 [facility] Comment on above: Expected: 07/13/2025, Expires: Start: 07-13-2025 End: 10-12-2025 Lipid 1996 panel - Serum or Plasma LIPID PANEL, FASTING Lab Routine Pure hypercholesterolemia Expected: 07/13/2025, Expires: 10/12/2025 [facility] Comment on above: Expected: 07/13/2025, Expires: Start: 07-13-2025 End: 10-12-2025 Microalbumin/Creatinine [Mass Ratio] in Urine ALBUMIN/CREATININE RATIO, URINE Lab Routine Type 2 diabetes mellitus with stage 2 chronic kidney disease, without long-term current use of insulin (HCC) Expected: 07/13/2025, Expires: 10/12/2025 [facility] Comment on above: Expected: 07/13/2025, Expires: Start: 06-11-2025 End: 06-11-2025 Patient encounter procedure 06/11/2025 1:45 PM EST Office Visit [facility] [address] [place] [address] Eula Díaz, OD [address] [place] [address] 1 YR F/U for diabetic eye exam. Ophthalmology Comment on above: 1 YR F/U for diabetic eye exam. Start: 06-09-2025 Glaucoma screening Dilated Retinal Exam [facility] Start: 04-21-2025 Radionuclide imaging of perfusion of myocardium under exercise stress [facility] Start: 03-02-2025 Influenza vaccination Influenza Vaccine (#1) [facility] Start: 02-04-2025 Glaucoma screening Dilated Retinal Exam [facility] Start: 01-28-2025 End: 01-28-2025 Patient encounter procedure 01/28/2025 10:20 AM EDT Office Visit Internal Medicine [id number] [place] [address] Martir Muller MD [address] [place] [address] Annual Medicare Wellness w/6 month follow-up Internal Medicine [facility] Comment on above: Annual Medicare Wellness w/6 month follo w-up Start: 01-21-2025 Annual PCP Team Chronic Disease Visit Annual PCP Team Chronic Disease Visit [facility] Start: 01-21-2025 End: 04-22-2025 CBC panel - Blood by Automated count COMPLETE BLOOD COUNT Lab Routine Primary hypertension Expected: 01/21/2025, Expires: 04/22/2025 [facility] Work Phone: Comment on above: Expected: 01/21/2025, Expires: Start: 01-21-2025 End: 04-22-2025 Chronic hepatitis differentiation between hepatitis B and C virus panel - Serum or Plasma HEP REMOTE PANEL BL Lab Routine Elevated liver enzymes Expected: 01/21/2025, Expires: 04/22/2025 [facility] Comment on above: Expected: 01/21/2025, Expires: Start: 01-21-2025 End: 04-22-2025 Comprehensive metabolic 2000 panel - Serum or Plasma COMPREHENSIVE METABOLIC PANEL Lab Routine Elevated liver enzymes Expected: 01/21/2025, Expires: 04/22/2025 [facility] Comment on above: Expected: 01/21/2025, Expires: Start: 01-21-2025 End: 04-22-2025 Hemoglobin A1c in Blood HEMOGLOBIN A1C Lab Routine Type 2 diabetes mellitus with stage 2 chronic kidney disease, without long-term current use of insulin (HCC) (HCC) Expected: 01/21/2025, Expires: 04/22/2025 [facility] Comment on above: Expected: 01/21/2025, Expires: Start: 01-19-2025 End: 01-19-2025 Patient encounter procedure 01/19/2025 9:15 AM EDT Appointment Radiology [address] [place] [address] Elevated liver enzymes [R74.8] Radiology Comment on above: Elevated liver enzymes [R74.8] Start: 01-12-2025 Hemoglobin A1c measurement HbA1C [facility] Start: 01-08-2025 Creatinine measurement Serum Creatinine [facility] Start: 01-07-2025 Glaucoma screening Dilated Retinal Exam [facility] Start: 10-17-2024 Annual PCP Team Chronic Disease Visit Annual PCP Team Chronic Disease Visit [facility] Start: 10-17-2024 Covid-19 Vaccine () Covid-19 Vaccine () [facility] Comment on above: Postponed from 03/02/2023 (Declined at t his time) Start: 10-17-2024 Diabetic foot examination Diabetic Foot Exam [facility] Start: 10-03-2024 Creatinine measurement Serum Creatinine [facility] Start: 10-03-2024 Hepatitis B surface antibody level LDL Cholesterol [facility] Start: 08-31-2024 Urine microalbumin profile [facility] Comment on above: Postponed from 08/31/2014 (Postponed To Appropriate Date) Start: 07-24-2024 End: 10-23-2024 Comprehensive metabolic 2000 panel - Serum or Plasma COMPREHENSIVE METABOLIC PANEL Lab Routine Type 2 diabetes mellitus with stage 2 chronic kidney disease, without long-term current use of insulin (HCC) ([facility]) Expected: 07/24/2024, Expires: 10/23/2024 [facility] Work Phone: Comment on above: Expected: 07/24/2024, Expires: Start: 07-24-2024 End: 10-23-2024 Hemoglobin A1c in Blood HEMOGLOBIN A1C Lab Routine Type 2 diabetes mellitus with stage 2 chronic kidney disease, without long-term current use of insulin (HCC) (HCC) Expected: 07/24/2024, Expires: 10/23/2024 [facility] Comment on above: Expected: 07/24/2024, Expires: Start: 07-24-2024 End: 10-23-2024 Lipid 1996 panel - Serum or Plasma LIPID PANEL BASIC Lab Routine Pure hypercholesterolemia Expected: 07/24/2024, Expires: 10/23/2024 [facility] Comment on above: Expected: 07/24/2024, Expires: Start: 07-24-2024 End: 10-23-2024 Microalbumin/Creatinine [Mass Ratio] in Urine ALBUMIN/CREATININE RATIO, URINE Lab Routine Type 2 diabetes mellitus with stage 2 chronic kidney disease, without long-term current use of insulin (HCC) (HCC) Expected: 07/24/2024, Expires: 10/23/2024 [facility] Comment on above: Expected: 07/24/2024, Expires: Start: 07-24-2024 End: 07-24-2024 Patient encounter procedure 07/24/2024 11:20 AM EST Office Visit Internal Medicine [facility] [address] [place] [address] Martir Muller MD [address] [place] [address] 6 month follow-up Internal Medicine [facility] Comment on above: 6 month follow-up Start: 07-02-2024 Advance Directive Discussion Advance Directive Discussion [facility] Start: 07-02-2024 Medicare Advantage Annual Wellness Visit Medicare Advantage Annual Wellness Visit [facility] Start: 06-09-2024 End: 06-09-2024 Patient encounter procedure 06/09/2024 1:45 PM EST Office Visit [facility] [address] [place] [address] Eula Díaz, OD [address] [place] [address] Annual Diabetic eye exam Ophthalmology Comment on above: Annual Diabetic eye exam Start: 06-08-2024 Glaucoma screening Dilated Retinal Exam [facility] Start: 06-08-2024 Hepatitis C antibody, confirmatory test Dilated Retinal Exam [facility] Start: 06-03-2024 Shingrix Vaccine (3 of 3) Shingrix Vaccine (3 of 3) [facility] Start: 04-18-2024 Annual PCP Team Chronic Disease Visit Annual PCP Team Chronic Disease Visit [facility] Start: 04-18-2024 Creatinine measurement Serum Creatinine [facility] Start: 04-18-2024 Hepatitis B screening Urine Albumin:Creatinine Ratio [facility] Start: 04-18-2024 Serum Creatinine Serum Creatinine [facility] Start: 04-04-2024 Hemoglobin A1c measurement HbA1C [facility] Start: 03-02-2024 Covid-19 Vaccine ( season) Covid-19 Vaccine () [facility] Start: 03-02-2024 Influenza vaccination Influenza Vaccine (#1) [facility] Start: 02-05-2024 End: 02-05-2024 Patient encounter procedure 02/05/2024 12:30 PM EDT Office Visit [facility] [address] [place] [address] Eula Díaz, OD [address] [place] [address] 3-4 weeks for PVD follow-up left eye dilation only Ophthalmology Comment on above: 3-4 weeks for PVD follow-up left eye dil ation only Start: 01-22-2024 End: 01-22-2024 Patient encounter procedure 01/22/2024 10:20 AM EDT Office Visit Internal Medicine [facility] [address] [place] [address] Martir Muller MD [address] [facility] [place] [address] Medicare wellness w/HTN [facility] [place] Comment on above: Medicare wellness w/HTN Start: 01-17-2024 End: 04-17-2024 Basic metabolic 2000 panel - Serum or Plasma BASIC METABOLIC PANEL Lab Routine Type 2 diabetes mellitus with stage 2 chronic kidney disease, without long-term current use of insulin (HCC) (HCC) Expected: 01/17/2024, Expires: 04/17/2024 [facility] Work Phone: Comment on above: Expected: 01/17/2024, Expires: Start: 12-08-2023 Hepatitis C antibody, confirmatory test Dilated Retinal Exam [facility] Start: 11-08-2023 ANNUAL PCP TEAM CHRONIC DISEASE VISIT ANNUAL PCP TEAM CHRONIC DISEASE VISIT [facility] Start: 10-25-2023 Hepatitis C antibody, confirmatory test DILATED RETINAL EXAM [facility] Start: 10-18-2023 3 comp foot exam completed DIABETIC FOOT EXAM [facility] Start: 10-18-2023 ANNUAL PCP TEAM CHRONIC DISEASE VISIT ANNUAL PCP TEAM CHRONIC DISEASE VISIT [facility] Start: 10-18-2023 End: 01-17-2024 Comprehensive metabolic 2000 panel - Serum or Plasma COMP METABOLIC PANEL Lab Routine Type 2 diabetes mellitus with stage 2 chronic kidney disease, without long-term current use of insulin (HCC) Expected: 10/18/2023, Expires: 01/17/2024 [facility] Work Phone: Comment on above: Expected: 10/18/2023, Expires: Start: 10-18-2023 Diabetic foot examination Diabetic Foot Exam [facility] Start: 10-18-2023 End: 01-17-2024 Hemoglobin A1c in Blood HGB A1C Lab Routine Type 2 diabetes mellitus with stage 2 chronic kidney disease, without long-term current use of insulin (HCC) Expected: 10/18/2023, Expires: 01/17/2024 [facility] Work Phone: Comment on above: Expected: 10/18/2023, Expires: Start: 10-18-2023 Hemoglobin A1c measurement HbA1C [facility] Start: 10-18-2023 Hemoglobin A1c/Hemoglobin.total in Blood HbA1C [facility] Start: 10-18-2023 Hepatitis B surface antibody level LDL CHOLESTEROL [facility] Start: 10-18-2023 End: 01-17-2024 Lipid 1996 panel - Serum or Plasma LIPID PANEL BASIC Lab Routine Pure hypercholesterolemia Expected: 10/18/2023, Expires: 01/17/2024 [facility] Work Phone: Comment on above: Expected: 10/18/2023, Expires: Start: 10-18-2023 SERUM CREATININE SERUM CREATININE [facility] Start: 07-02-2023 Advance Directive Discussion Advance Directive Discussion [facility] Start: 07-02-2023 Behavioral Health Screening Behavioral Health Screening [facility] Start: 07-02-2023 Depression Assessment Depression Assessment [facility] Start: 04-21-2023 Hepatitis B screening URINE ALBUMIN:CREATININE RATIO [facility] Start: 04-21-2023 Hepatitis B surface antibody level LDL CHOLESTEROL [facility] Start: 04-21-2023 SERUM CREATININE SERUM CREATININE [facility] Start: 04-20-2023 ANNUAL PCP TEAM CHRONIC DISEASE VISIT ANNUAL PCP TEAM CHRONIC DISEASE VISIT [facility] Start: 04-20-2023 BP CONTROLLED (<130/80) BP CONTROLLED (<130/80) [facility] Start: 04-18-2023 Hemoglobin A1c/Hemoglobin.total in Blood HBA1C [facility] Start: 03-02-2023 Covid-19 Vaccine () Covid-19 Vaccine () [facility] Start: 12-18-2022 PROSTATE CANCER SCREENING DISCUSSION PROSTATE CANCER SCREENING DISCUSSION [facility] Start: 10-20-2022 Hemoglobin A1c/Hemoglobin.total in Blood HBA1C [facility] Start: 10-14-2022 3 comp foot exam completed DIABETIC FOOT EXAM [facility] Start: 10-14-2022 Adult depression screening assessment DEPRESSION SCREENING [facility] Start: 10-14-2022 ANNUAL PCP TEAM CHRONIC DISEASE VISIT ANNUAL PCP TEAM CHRONIC DISEASE VISIT [facility] Start: 10-14-2022 SHINGRIX VACCINE (2 of 3) SHINGRIX VACCINE (2 of 3) [facility] Comment on above: Postponed from 08/29/2016 (Insurance Cov erage) Start: 10-05-2022 SERUM CREATININE SERUM CREATININE [facility] Start: 07-11-2022 ANNUAL PCP TEAM CHRONIC DISEASE VISIT ANNUAL PCP TEAM CHRONIC DISEASE VISIT [facility] Start: 07-11-2022 BP CONTROLLED (<130/80) BP CONTROLLED (<130/80) [facility] in Start: 07-02-2022 ADVANCE DIRECTIVE DISCUSSION ADVANCE DIRECTIVE DISCUSSION [facility] Start: 07-02-2022 DEPRESSION ASSESSMENT DEPRESSION ASSESSMENT [facility] Start: 04-15-2022 End: 06-15-2022 ALBUMIN/CREAT RATIO RND UR ALBUMIN/CREAT RATIO RND UR Lab Routine Type 2 diabetes mellitus with stage 2 chronic kidney disease, without long-term current use of insulin (HCC) Expected: 04/15/2022, Expires: 06/15/2022 [facility] Work Phone: Comment on above: Expected: 04/15/2022, Expires: Start: 04-15-2022 End: 06-15-2022 Comprehensive metabolic 2000 panel - Serum or Plasma COMP METABOLIC PANEL Lab Routine Type 2 diabetes mellitus with stage 2 chronic kidney disease, without long-term current use of insulin (HCC) Expected: 04/15/2022, Expires: 06/15/2022 [facility] Work Phone: Comment on above: Expected: 04/15/2022, Expires: 2 Start: 04-15-2022 End: 06-15-2022 Hemoglobin A1c/Hemoglobin.total in Blood HGB A1C Lab Routine Type 2 diabetes mellitus with stage 2 chronic kidney disease, without long-term current use of insulin (HCC) Expected: 04/15/2022, Expires: 06/15/2022 [facility] Work Phone: Comment on above: Expected: 04/15/2022, Expires: 2 Start: 04-15-2022 End: 06-15-2022 LIPID PANEL BASIC LIPID PANEL BASIC Lab Routine Type 2 diabetes mellitus with stage 2 chronic kidney disease, without long-term current use of insulin (HCC) Expected: 04/15/2022, Expires: 06/15/2022 [facility] Work Phone: Comment on above: Expected: 04/15/2022, Expires: 2 Start: 04-13-2022 Hepatitis B screening URINE ALBUMIN:CREATININE RATIO [facility] Start: 04-13-2022 PNEUMOCOCCAL: 65+ (2 - PCV) PNEUMOCOCCAL: 65+ (2 - PCV) [facility] Start: 04-08-2022 Hepatitis B surface antibody level LDL CHOLESTEROL [facility] Start: 04-06-2022 Hemoglobin A1c/Hemoglobin.total in Blood HBA1C [facility] Start: 10-07-2021 Hemoglobin A1c/Hemoglobin.total in Blood HBA1C [facility] Start: 10-04-2021 Adult depression screening assessment DEPRESSION SCREENING [facility] Start: 09-27-2021 End: 11-27-2021 CBC panel - Blood by Automated count CBC Lab Routine Type 2 diabetes mellitus without complication, without long-term current use of insulin (HCC) Expected: 09/27/2021, Expires: 11/27/2021 [facility] Work Phone: Comment on above: Expected: 09/27/2021, Expires: 2 Start: 09-27-2021 End: 11-27-2021 SCHEDULE LAB TESTING SCHEDULE LAB TESTING Lab Routine Expected: 09/27/2021, Expires: 11/27/2021 [facility] Work Phone: Comment on above: Expected: 09/27/2021, Expires: 2 Start: 07-02-2021 ADVANCE DIRECTIVE DISCUSSION ADVANCE DIRECTIVE DISCUSSION [facility] Start: 08-29-2016 SHINGRIX VACCINE (2 of 3) SHINGRIX VACCINE (2 of 3) [facility] Start: 03-05-2016 FECAL OCCULT BLOOD FECAL OCCULT BLOOD [facility] Start: 03-05-2016 Screening for malignant neoplasm of colon Fecal Occult Blood [facility] Start: 2015 Hepatitis B Vaccine (1 of 3 - Risk 3-dose series) Hepatitis B Vaccine (1 of 3 - Risk 3-dose series) [facility] Start: 2015 RSV Vaccine (1 - 1-dose 60+ series) RSV Vaccine (1 - 1-dose 60+ series) [facility] Start: 2015 RSV Vaccine (1 - Risk 60-74 years 1-dose series) RSV Vaccine (1 - Risk 60-74 years 1-dose series) [facility] Start: 08-31-2014 Urine microalbumin profile DTaP,Tdap,Td Vaccine (1 - Tdap) [facility] Start: 2000 COLOGUARD (FIT-DNA) COLOGUARD (FIT-DNA) [facility] Start: [address] COLONOGRAPHY [facility] Start: 2000 Screening for malignant neoplasm of colon [facility] Start: 2000 SIGMOIDOSCOPY SIGMOIDOSCOPY [facility] Start: 1973 Anxiety Screening Anxiety Screening [facility] Start: 1973 Depression Screening Depression Screening [facility] Start: 1965 3 comp foot exam completed DIABETIC FOOT EXAM [facility] Start: 1965 Hepatitis C antibody, confirmatory test DILATED RETINAL EXAM [facility] POST VOID RESIDUAL POST VOID RES IDUAL Procedures Routine Abnormal urinary stream Ordered: 05/01/2023 [facility] Work Phone: Comment on above: Ordered: 05/01/2023 End: 08-23-2025 US Abdomen RUQ US ABD RIGHT UPPER QUADRANT Radiology Routine Elevated liver enzymes 1 Occurrences starting 07/24/2024 until 08/23/2025 [facility] Comment on above: 1 Occurrences starting 07/24/2024 until 08/23/2025 US Abdomen RUQ US ABD RIGHT UPP ER QUADRANT Radiology Routine Elevated liver enzymes 01/19/2025 9:28 AM EDT [facility] End: 01-19-2025 Us abdominal real time w/image limited [facility] Work Phone: Comment on above: ONCE for 1 Occurrences starting 01/20/20 until 01/19/2025 US [facility] Immunizations Immunization Date Immunization Notes Care Provider Fa [facility] 06-10-2024 zoster vaccine recombinant Martir Muller MD Work Phone: [facility] 04-08-2024 respiratory syncytia l virus (RSV) vaccine, adjuvanted (AREXVY) Eula Díaz OD Work Phone: [facility] 04-08-2024 Seasonal trivalent influenza vaccine, adjuvanted, preservative free Eula Díaz OD Work Phone: [facility] 04-08-2024 zoster vaccine recombinant Eula Díaz OD Work Phone: [facility] 04-08-2024 influenza virus vacc ine, unspecified formulation 1 Work Phone: [facility] 04-18-2023 influenza (HD-IIV4) vaccine, age 65+ yr, high dose, quadrivalent, PF (FLUZONE HIGH-DOSE) Martir Muller MD Work Phone: [facility] 04-18-2023 influenza virus vacc ine, unspecified formulation Eula Díaz OD Work Phone: [facility] 10-17-2022 pneumococcal (PCV20) vaccine, 20 valent (PREVNAR 20) Eula Díaz OD Work Phone: [facility] Work Phone: 04-20-2022 COVID-19 booster vaccine, age 12+ yr, bivalent (GetPromotd-[id number]) Martir Muller MD Work Phone: [facility] 04-20-2022 influenza, high-dose , quadrivalent vaccine (FLUZONE HIGH DOSE QUADRIVALENT) Martir Muller MD Work Phone: [facility] 06-30-2021 COVID-19 vaccine, booster dose (MODERNA) Martir Muller MD Work Phone: [facility] Work Phone: 04-13-2021 influenza, high-dose , quadrivalent vaccine (FLUZONE HIGH DOSE QUADRIVALENT) Martir Muller MD Work Phone: [facility] Work Phone: 04-13-2021 pneumococcal polysaccharide vaccine, 23 valent Martir Muller MD Work Phone: [facility] Work Phone: 10-21-2020 COVID-19 vaccine, fu ll dose (MODERNA) Martir Muller MD Work Phone: [facility] Work Phone: 09-22-2020 COVID-19 vaccine, fu ll dose (MODERNA) Martir Muller MD Work Phone: [facility] Work Phone: 04-01-2020 influenza, injectabl e, quadrivalent, contains preservative Martir Muller MD Work Phone: [facility] Work Phone: 05-08-2019 Influenza, injectabl e, Madin Neha Canine Kidney, preservative free, quadrivalent Martir Muller MD Work Phone: [facility] 05-08-2019 influenza, injectabl e, quadrivalent, preservative free Martir Muller MD Work Phone: [facility] Work Phone: 04-30-2018 influenza, injectabl e, quadrivalent, contains preservative Martir Muller MD Work Phone: [facility] 03-21-2017 influenza, injectabl e, quadrivalent, contains preservative Martir Muller MD Work Phone: [facility] 07-04-2016 zoster vaccine, live Martir Muller MD Work Phone: [facility] Work Phone: 06-14-2016 influenza, injectabl e, quadrivalent, preservative free Martir Muller MD Work Phone: [facility] Work Phone: 06-14-2016 influenza, seasonal, injectable Martir Muller MD Work Phone: [facility] Work Phone: 06-28-2015 influenza, injectabl e, quadrivalent, contains preservative Martir Muller MD Work Phone: [facility] 06-28-2015 influenza, injectabl e, quadrivalent, preservative free Martir Muller MD Work Phone: [facility] Work Phone: 08-30-2014 TD(adult) unspecifie d formulation Martir Muller MD Work Phone: [facility] Work Phone: 08-30-2014 tetanus and diphther ia toxoids, adsorbed, preservative free, for adult use (2 Lf of tetanus toxoid and 2 Lf of diphtheria toxoid) Martir Muller MD Work Phone: [facility] Work Phone: 08-30-2014 tetanus toxoid, redu candace diphtheria toxoid, and acellular pertussis vaccine, adsorbed BARB JOSHI DO [facility] 06-26-2014 influenza, seasonal, injectable Martir Muller MD Work Phone: [facility] 04-16-2013 influenza virus vacc ine, unspecified formulation Martir Muller MD Work Phone: [facility] 05-13-2011 influenza virus vacc ine, unspecified formulation Martir Muller MD Work Phone: [facility] 05-12-2010 influenza virus vacc ine, unspecified formulation Martir Muller MD Work Phone: [facility] 04-20-2009 influenza virus vacc ine, unspecified formulation Martir Muller MD Work Phone: [facility] 05-14-2008 influenza virus vacc ine, unspecified formulation Martir Muller MD Work Phone: [facility] Work Phone: Payers Date Payer Category Payer Self-pay 2022 Unknown [id number] 2020 Medicare UHC AAR MEDICAR E [facility] MEDICARE O [id number] 2020-Present [phone] [address] [address] [place] [address] O [id number] 2020 Medicare UHC AAR MEDICAR E [facility] MEDICARE O [id number] 2020-Present [phone] [address] [address] [place] [address] O [id number] 2020 Medicare (Managed Care) [facility] MEDICARE HMO [id number] 2020 Unknown [id number] 1955 Unknown [id number] Self-pay [phone] [id number] Unknown [id number] Unknown [id number] Unknown [id number] Unknown [id number] Unknown [id number] Social History Date Type Detail Facility Start: 04-20-2022 End: 02-28-2024 Tobacco smoking status NHIS Ex-smoker [facility] End: 10-30-2001 History of tobacco use Current smoker [facility] End: 10-30-2001 History of tobacco use Pipe Smoker [facility] Start: 07-11-2021 End: 01-28-2025 Alcohol intake Current drinker of alcohol (finding) [facility] Start: 07-11-2021 End: 11-07-2022 Alcohol intake [facility] Work Phone: Start: 04-01-2020 End: 10-17-2022 History SDOH Alcohol Frequency 2 [facility] Start: 04-01-2020 End: 10-17-2022 History SDOH Alcohol Std Drinks 1 [facility] Start: 04-01-2020 History SDOH Alcohol Comment 2 beer per month [facility] Start: 06-08-2011 End: 04-20-2022 Tobacco Comment 4-5 pipes per day, 30 years [facility] Start: 1955 Sex Assigned At Not on file C [facility] Start: 09-25-2021 End: 04-20-2022 Exposure to SARS-CoV-2 (event) Not sure [facility] Work Phone: Start: 1955 Sex Assigned At Male W [facility] Start: 04-20-2022 End: 01-22-2024 Tobacco use and exposure Former smokeless tobacco user [facility] Tobacco smoking status Never smo ked tobacco (finding) [facility] Sex Assigned At Sex [facility] Start: 10-17-2022 History SDOH Physica l Activity DPW 3 [facility] Start: 10-17-2022 History SDOH Physica l Activity MPS 4 [facility] Start: 10-17-2022 End: 11-07-2022 Alcohol Use Disorder Identification Test - Consumption [AUDIT-C] [facility] Work Phone: How often to you hav e a drink containing alcohol? Monthly or less [facility] Work Phone: How many standard dr inks containing alcohol do you have on a typical day? 1 or 2 [facility] Work Phone: How often do you hav e 6 or more drinks on 1 occasion? Never [facility] Work Phone: Start: 06-02-2012 Adult Depression Scr eening Assessment 0 [facility] Work Phone: Has the [employer], or [employer] threatened to shut off services in your home in past 12Mo No [facility] Do you belong to any clubs or organizations such as jain groups, unions, fraternal or athletic groups, or school groups? Yes [facility] Are you now , , , , never or living with a partner? [facility] Do you feel stress - tense, restless, nervous, or anxious, or unable to sleep at night because your mind is troubled all the time - these days [OSQ] Only a little [facility] (I/We) worried lupis er (my/our) food would run out before (I/we) got money to buy more. Never true [facility] Medical Equipment Procedure Code Equipment Code Equipment Original Text Equipment Identifier Dates [id number], [id number], [id number] Start: 04-13-2021 End: 01-28-2025 Comment on above: Test blood sugar(s) 1 times daily. Dx: Type 2 DM - Controlled E11.9 Insulin: No Functional Status Date Assessment Result Facility 01-28-2025 Total score [AUDIT-C] 1 01/29/20 10:42 AM Martir Hughes MD [facility] 10-05-2022 Functional Status Standard Safet y ID band on, Call device within reach, Bed in low position, Wheels locked [facility] 01-07-2015 Are you deaf, or do you have serious difficulty hearing No 01/07/2015 1:53 PM Arnold PortilloRn)(Hist), RN No [facility] 01-07-2015 Are you blind, or do you have serious difficulty seeing, even when wearing glasses No 01/07/2015 1:53 PM Arnold PortilloRn)(Hist), RN No [facility] 01-07-2015 Do you have serious difficulty walking or climbing stairs No 01/07/2015 1:53 PM Arnold PortilloRn)(Hist), RN No [facility] 01-07-2015 Do you have difficul ty dressing or bathing No 01/07/2015 1:53 PM Arnold PortilloRn)(Hist), RN No [facility] 01-07-2015 Because of a physica l, mental, or emotional condition, do you have difficulty doing errands alone such as visiting a physician's office or shopping No 01/07/2015 1:53 PM Arnold Portillo)(Hist), RN No [facility] Mental Status Date Assessment Result Facility 10-05-2022 Mental Status Orientation Oriented x 4 [facility] 01-07-2015 Because of a physica l, mental, or emotional condition, do you have serious difficulty concentrating, remembering, or making decisions No 01/07/2015 1:53 PM Arnold PortilloRn)(Hist), RN No [facility] Clinical Notes 02-18-2013 to 04-21-2025 Martir Muller MD - 01/28/2025 10:46 AM Martir Cook MD - 01/28/2025 10:39 AM EDTPatient InstructionsKHelene humphries RDMS - 01/19/2025 9:15 AM EDTPatient Instructions Note Date & Type Note Facility 04-21-2025 Progress note [facility] 01-28-2025 Note HNO ID: [id number] Author: MARTIR MULLER MD Service: ? Author Type: Physician Type: Progress Notes Filed: 01/28/2025 11:07 Note Text: Subjective Shahbaz Mittal is a 69 year old male. He was here for a follow up and was doing well. His diabetes mellitus, hypertension, and lipids were controlled. CAD was asymptomatic. [facility] change from [facility] was noted. He will need new prescriptions for his glucose testing supplies this January. Review of Systems Constitutional: Negative for fatigue and unexpected weight change. Respiratory: Negative for cough and shortness of breath. Cardiovascular: Negative for chest pain, palpitations and leg swelling. Gastrointestinal: Negative for abdominal pain, constipation, diarrhea, nausea and vomiting. Genitourinary: Negative for difficulty urinating. Neurological: Negative for dizziness, numbness and headaches. ACTIVE PROBLEM LIST Pure Hypercholesterolemia Cad (Coronary Artery Disease) Hypertension S/P Cabg X 4 Obesity, Class II, Bmi 35-39.9 Type 2 Diabetes Mellitus With Stage 2 Chronic Kidney Disease, Without Long-Term Current Use of Insulin (Hcc) Elevated Liver Enzymes Social History Tobacco Use Smoking status: Former Types: Pipe Quit date: 10/30/2001 Years since quittin.2 Smokeless tobacco: Former Tobacco comments: 4-5 pipes per day, 30 years Vaping Use Vaping status: Never Used Substance Use Topics Alcohol use: Yes Comment: 2 beer per month Drug use: Not Currently Types: Marijuana Current Outpatient Medications Medication Sig amLODIPine (NORVASC) 2.5 mg tablet Take 1 tablet by mouth once daily. blood sugar diagnostic (BLOOD GLUCOSE TEST) test strip Test blood sugar(s) 1 times daily. Dx: Type 2 DM - Controlled E11.9 Insulin: No lisinopril (ZESTRIL) 40 mg tablet Take 1 tablet by mouth once daily. atorvastatin (LIPITOR) 40 mg tablet Take 1 tablet by mouth daily at bedtime. metoprolol tartrate, short acting, (LOPRESSOR) 25 mg tablet Take 1 tablet by mouth two times a day. Lancets Test blood sugar(s) 1 times daily. Dx: Type 2 DM - Controlled E11.9 Insulin: No omega-3/epa/fish oil (OMEGA-3 FATTY ACIDS-EPA ORAL) Take by mouth once daily. Aspirin 81 mg Tab Take 1 tablet by mouth once daily. Take with food. COMPOUNDED PRESCRIPTION arthermend over the counter med for arthritis aspirin 81 mg cap Take 81 mg by mouth once daily. No current facility-administered medications for this visit. Objective BP 124/84 Pulse 70 Ht 172.1 cm (5' 7.75") Wt 121.7 kg (268 lb 4.8 oz) BMI 41.10 kg/m? Physical Exam Constitutional: General: He is not in acute distress. Appearance: He is not ill-appearing. Cardiovascular: Rate and Rhythm: Normal rate and regular rhythm. Pulses: Normal pulses. Heart sounds: S1 normal and S2 normal. No murmur heard. No gallop. Pulmonary: Breath sounds: Normal breath sounds. Abdominal: Tenderness: There is no abdominal tenderness. Musculoskeletal: Right lower leg: No edema. Left lower leg: No edema. Neurological: Mental Status: He is alert. Gait: Gait normal. Feet:Shoes and socks removed, No deformities, ulcers, calluses, normal distal pulses, and sensitive to 10 gm monofilament Latest Ref Rn 01/19/2025 Protein, Total 6.3 - 8.0 g/dL 7.3 Albumin 3.9 - 4.9 g/dL 4.3 Calcium 8.5 - 10.2 mg/dL 9.6 Bilirubin, Total 0.2 - 1.3 mg/dL 0.4 Alkaline Phosphatase 38 - 113 U/L 55 AST 14 - 40 U/L 33 ALT 10 - 54 U/L 64 (H) Glucose 74 - 99 mg/dL 161 (H) BUN 9 - 24 mg/dL 15 Creatinine 0.73 - 1.22 mg/dL 1.09 Sodium 136 - 144 mmol/L 138 Potassium 3.7 - 5.1 mmol/L 4.2 Chloride 98 - 107 mmol/L 102 CO2 22 - 30 mmol/L 20 (L) Anion Gap 8 - 15 mmol/L 16 (H) eGFR >=60 mL/min/1.73m? 73 WBC 3.70 - 11.00 k/uL 7.32 RBC 4.20 - 6.00 m/uL 5.00 Hemoglobin 13.0 - 17.0 g/dL 14.4 Hematocrit 39.0 - 51.0 % 43.4 MCV 80.0 - 100.0 fL 86.8 MCH 26.0 - 34.0 pg 28.8 MCHC 30.5 - 36.0 g/dL 33.2 RDW-CV 11.5 - 15.0 % 14.1 Platelet Count 150 - 400 k/uL 248 MPV 9.0 - 12.7 fL 10.4 Absolute nRBC <0.01 k/uL <0.01 Hemoglobin A1C 4.3 - 5.6 % 6.9 (H) Estimated Average Glucose mg/dL 151 Hep B Surface Ab, Qual Negative Hep B Surf Ab Quant mIU/mL <8.00 Hep C Antibody IA Negative Negative Hep B Surface Ag Negative Negative Hep B Core Ab, Total Negative Negative Legend: (H) High (L) Low IMPRESSION: Liver suboptimally seen. Findings suggest there may be fatty changes in the liver. ASSESSMENT/PLAN: 1. Medicare annual wellness visit, subsequent - ICD9: V70.0, ICD10: Z00.00 (primary diagnosis) - See wellness visit. 2. Screening for depression - ICD9: V79.0, ICD10: Z13.31 - DEPRESSION SCREENING 3. Encounter for screening examination for other mental health and behavioral disorders - ICD9: V79.8, ICD10: Z13.39 - ANXIETY SCREENING 4. Obesity, Class III, BMI >= 40 - ICD9: 278.01, ICD10: E66.813 Weight increasing - Behavioral intervention 5. [place] (more content not included)... [facility] 01-28-2025 History of Present illness Narrative Subjective Shahbaz Mittal is a 69 year old male. He was here for a follow up and was doing well. His diabetes mellitus, hypertension, and lipids were controlled. CAD was asymptomatic. No medication change from [facility] was noted. He will need new prescriptions for his glucose testing supplies this January. Review of Systems Constitutional: Negative for fatigue and unexpected weight change. Respiratory: Negative for cough and shortness of breath. Cardiovascular: Negative for chest pain, palpitations and leg swelling. Gastrointestinal: Negative for abdominal pain, constipation, diarrhea, nausea and vomiting. Genitourinary: Negative for difficulty urinating. Neurological: Negative for dizziness, numbness and headaches. ACTIVE PROBLEM LIST Pure Hypercholesterolemia Cad (Coronary Artery Disease) Hypertension S/P Cabg X 4 Obesity, Class II, Bmi 35-39.9 Type 2 Diabetes Mellitus With Stage 2 Chronic Kidney Disease, Without Long-Term Current Use of Insulin (Hcc) Elevated Liver Enzymes Social History Tobacco Use Smoking status: Former Types: Pipe Quit date: 10/30/2001 Years since quittin.2 Smokeless tobacco: Former Tobacco comments: 4-5 pipes per day, 30 years Vaping Use Vaping status: Never Used Substance Use Topics Alcohol use: Yes Comment: 2 beer per month Drug use: Not Currently Types: Marijuana Current Outpatient Medications Medication Sig amLODIPine (NORVASC) 2.5 mg tablet Take 1 tablet by mouth once daily. blood sugar diagnostic (BLOOD GLUCOSE TEST) test strip Test blood sugar(s) 1 times daily. Dx: Type 2 DM - Controlled E11.9 Insulin: No lisinopril (ZESTRIL) 40 mg tablet Take 1 tablet by mouth once daily. atorvastatin (LIPITOR) 40 mg tablet Take 1 tablet by mouth daily at bedtime. metoprolol tartrate, short acting, (LOPRESSOR) 25 mg tablet Take 1 tablet by mouth two times a day. Lancets Test blood sugar(s) 1 times daily. Dx: Type 2 DM - Controlled E11.9 Insulin: No omega-3/epa/fish oil (OMEGA-3 FATTY ACIDS-EPA ORAL) Take by mouth once daily. Aspirin 81 mg Tab Take 1 tablet by mouth once daily. Take with food. COMPOUNDED PRESCRIPTION arthermend over the counter med for arthritis aspirin 81 mg cap Take 81 mg by mouth once daily. No current facility-administered medications for this visit. Objective BP 124/84 Pulse 70 Ht 172.1 cm (5' 7.75") Wt 121.7 kg (268 lb 4.8 oz) BMI 41.10 kg/m Physical Exam Constitutional: General: He is not in acute distress. Appearance: He is not ill-appearing. Cardiovascular: Rate and Rhythm: Normal rate and regular rhythm. Pulses: Normal pulses. Heart sounds: S1 normal and S2 normal. No murmur heard. No gallop. Pulmonary: Breath sounds: Normal breath sounds. Abdominal: Tenderness: There is no abdominal tenderness. Musculoskeletal: Right lower leg: No edema. Left lower leg: No edema. Neurological: Mental Status: He is alert. Gait: Gait normal. Feet:Shoes and socks removed, No deformities, ulcers, calluses, normal distal pulses, and sensitive to 10 gm monofilament Latest Ref Rng 01/19/2025 Protein, Total 6.3 - 8.0 g/dL 7.3 Albumin 3.9 - 4.9 g/dL 4.3 Calcium 8.5 - 10.2 mg/dL 9.6 Bilirubin, Total 0.2 - 1.3 mg/dL 0.4 Alkaline Phosphatase 38 - 113 U/L 55 AST 14 - 40 U/L 33 ALT 10 - 54 U/L 64 (H) Glucose 74 - 99 mg/dL 161 (H) BUN 9 - 24 mg/dL 15 Creatinine 0.73 - 1.22 mg/dL 1.09 Sodium 136 - 144 mmol/L 138 Potassium 3.7 - 5.1 mmol/L 4.2 Chloride 98 - 107 mmol/L 102 CO2 22 - 30 mmol/L 20 (L) Anion Gap 8 - 15 mmol/L 16 (H) eGFR >=60 mL/min/1.73m 73 WBC 3.70 - 11.00 k/uL 7.32 RBC 4.20 - 6.00 m/uL 5.00 Hemoglobin 13.0 - 17.0 g/dL 14.4 Hematocrit 39.0 - 51.0 % 43.4 MCV 80.0 - 100.0 fL 86.8 MCH 26.0 - 34.0 pg 28.8 MCHC 30.5 - 36.0 g/dL 33.2 RDW-CV 11.5 - 15.0 % 14.1 Platelet Count 150 - 400 k/uL 248 MPV 9.0 - 12.7 fL 10.4 Absolute nRBC <0.01 k/uL <0.01 Hemoglobin A1C 4.3 - 5.6 % 6.9 (H) Estimated Average Glucose mg/dL 151 Hep B Surface Ab, Qual Negative Hep B Surf Ab Quant mIU/mL <8.00 Hep C Antibody IA Negative Negative Hep B Surface Ag Negative Negative Hep B Core Ab, Total Negative Negative Legend: (H) High (L) Low IMPRESSION: Liver suboptimally seen. Findings suggest there may be fatty changes in the liver. ASSESSMENT/PLAN: 1. Medicare annual wellness visit, subsequent - ICD9: V70.0, ICD10: Z00.00 (primary diagnosis) - See wellness visit. 2. Screening for depression - ICD9: V79.0, ICD10: Z13.31 - DEPRESSION SCREENING 3. Encounter for screening examination for other mental health and behavioral disorders - ICD9: V79.8, ICD10: Z13.39 - ANXIETY SCREENING 4. Obesity, Class III, BMI >= 40 - ICD9: 278.01, ICD10: E66.813 Weight increasing - Behavioral intervention 5. Elevated liver enzymes - ICD9: 790.5, ICD10: R74.8 - NAFL. - Risk factor modification. 6. S/P CABG x 4 - ICD9: V45.81, ICD10: Z95.1 - Asymptomatic. 7. Type 2 diabetes mellitus with stage 2 chronic kidney disease, without long-term current use of insulin (HCC) - ICD9: 250.40, 585.2, ICD10: E11.22, N18.2 - Controlled - Continue current medications - eGFR: 73 Stable - Counseled on avoiding NSAIDs, adequate hydration - HEMOGLOBIN A1C - ALBUMIN/CREATININE RATIO, URINE - LANCETS - BLOOD SUGAR DIAGNOSTIC STRIPS - BLOOD-GLUCOSE METER KIT 8. Coronary artery disease involving [place] coronary artery of [place] heart without angina pectoris - ICD9: 414.01, ICD10: I25.10 - Stable. - Continue medications. 9. Pure hypercholesterolemia - ICD9: 272.0, ICD10: E78.00 - Controlled. - Continue medication and diet. - COMPREHENSIVE METABOLIC PANEL - LIPID PANEL, FASTING Martir Muller MD Images from the original note were not included. Shahbaz Mittal is a 69 year old male here for a Medicare wellness visit. Medicare Health Risk Assessment General Health Very good Exercise: Minutes/Day 40 min Exercise: Days/Week 3 days Alcohol: Daily Use Monthly or less Alcohol: Drinks/Day 1 or 2 Alcohol: 6 or more drinks Never Feel off balance No Concerns: Teeth/Dentures No Concerns: Sexual function No Troubled by feelings None of the above Frequency: Eating healthy diet More than half the days ADLs requiring help None of the above Safety precautions in home/vehicle Yes Smoke, vape, chews tobacco No Difficulty hearing Yes Difficulty seeing No Current Providers Specialists: I have reviewed specialist-related care of the patient in the medical record. Current care team: Patient Care Team: Martir Muller MD as PCP - General (Internal Medicine) Jennifer Bradford APRN.HYDROPONICS WORKER as Materials Intern (Internal Medicine) Eula Díaz OD (Optometry) Outside specialists seen: Cedrick Mcduffie MD or Erasto Grant (Cardiology) Medical/Family history review Reviewed and updated problem list, medical/surgical/family/social history, medications, and allergies. Opioid use review Opioid Medications (last 90 days) No data to display Anxiety/Depression screening PHQ-2 Score: 0 (Lower risk for depression) CHANDRIKA-2 Score: 0 (Lower risk for anxiety) Recommendation: no further intervention at this time Cognitive screening Mini Cog Score: 4 Cognitive screening reviewed and No further action needed (score 3-5). Functional Observation Was the patient's Timed Up & Go test unsteady or >= 12 seconds? No Advance Care Planning Surrogate decision maker and/or advance care plan documented Measurements BP 124/84 Pulse 70 Ht 172.1 cm (5' 7.75") Wt 121.7 kg (268 lb 4.8 oz) BMI 41.10 kg/m Vision Screening: Follows with optometry/ophthalmology Right: 20/25 Left: 20/ 25 Both: 2025 Assessment/Plan Medicare annual wellness visit, subsequent (Z00.00) - Counseled on healthy diet and regular exercise - Fall avoidance information provided - Personalized prevention plan provided - Discussed need for and benefit of weight loss. BMI 41.10 kg/(m^2) - Counseled patient on alcohol intake and associated health risks documented in this encounter [facility] 01-28-2025 Instructions Martir Muller MD - 01/28/2025 10:44 AM EDT Screening schedule The following prevention plan is recommended: Depression Screening Never done Anxiety Screening Never done DTaP,Tdap,Td Vaccine(1 - Tdap) due on 08/31/2014 Advance Directive Discussion due on 07/02/2024 Medicare Advantage Annual Wellness Visit due on 07/02/2024 Diabetic Foot Exam due on 10/17/2024 WHAT YOU CAN DO TO PREVENT FALLS Many falls can be prevented. By making some changes, you can lower your chances of falling. Four things YOU can do to prevent falls for you* and your caregiver 1. Begin a regular exercise program Exercise is one of the most important ways to lower your chances of falling. It makes you stronger and helps you feel better. Exercises that improve balance and coordination (like Choco Chi) are the most helpful. Lack of exercise leads to weakness and increases your chances of falling. Ask your doctor or health care provider about the best type of exercise program for you. 2. Have your health care provider review your medicines Have your doctor or pharmacist review all the medicines you take, even lqos-pry-mueyajw medicines. As you get older, the way medicines work in your body can change. Some medicines, or combinations of medicines, can make you sleepy or dizzy and can cause you to fall. 3. Have your vision checked Have your eyes checked by an eye doctor at least once a year. You may be wearing the wrong glasses or have a condition like glaucoma or cataracts that limits your vision. Poor vision can increase your chances of falling. 4. Make your home safer About half of all falls happen at home. To make your home safer: Remove things you can trip over (like papers, books, clothes, and shoes) from stairs and places where you walk. Remove small throw rugs or use double-sided tape to keep the rugs from slipping. Keep items you use often in cabinets you can reach easily without using a step stool. Have grab bars put in next to your toilet and in the tub or shower. Use non-slip mats in the bathtub and on shower floors. Improve the lighting in your home. As you get older, you need brighter lights to see well. Hang light-weight curtains or shades to reduce glare. Have handrails and lights put in on all staircases. Wear shoes both inside and outside the house. Avoid going barefoot or wearing slippers. For more information, contact: Centers for Disease Control and Prevention www.cdc.gov/injury * This information may not apply if you have certain medical conditions. documented in this encounter [facility] 01-28-2025 Note HNO ID: [id number] Author: MARTIR MULLER MD Service: ? Author Type: Physician Type: Progress Notes Filed: 01/28/2025 11:07 Note Text: Shahbaz Mittal is a 69 year old male here for a Medicare wellness visit. Medicare Health Risk Assessment General Health Very good Exercise: Minutes/Day 40 min Exercise: Days/Week 3 days Alcohol: Daily Use Monthly or less Alcohol: Drinks/Day 1 or 2 Alcohol: 6 or more drinks Never Feel off balance No Concerns: Teeth/Dentures No Concerns: Sexual function No Troubled by feelings None of the above Frequency: Eating healthy diet More than half the days ADLs requiring help None of the above Safety precautions in home/vehicle Yes Smoke, vape, chews tobacco No Difficulty hearing Yes Difficulty seeing No Current Providers Specialists: I have reviewed specialist-related care of the patient in the medical record. Current care team: Patient Care Team: Martir Muller MD as PCP - General (Internal Medicine) Jennifer Bradford, SPE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 as Materials Intern (Internal Medicine) Eula Díaz OD (Optometry) Outside specialists seen: Cedrick Mcduffie MD or Erasto Grant (Cardiology) Medical/Family history review Reviewed and updated problem list, medical/surgical/family/social history, medications, and allergies. Opioid use review Opioid Medications (last 90 days) No data to display Anxiety/Depression screening PHQ-2 Score: 0 (Lower risk for depression) CHANDRIKA-2 Score: 0 (Lower risk for anxiety) Recommendation: no further intervention at this time Cognitive screening Mini Cog Score: 4 Cognitive screening reviewed and No further action needed (score 3-5). Functional Observation Was the patient's Timed Up AND Go test unsteady or >= 12 seconds? No Advance Care Planning Surrogate decision maker and/or advance care plan documented Measurements BP 124/84 Pulse 70 Ht 172.1 cm (5' 7.75") Wt 121.7 kg (268 lb 4.8 oz) BMI 41.10 kg/m? Vision Screening: Follows with optometry/ophthalmology Right: 20/25 Left: 20/ 25 Both: 20/25 Assessment/Plan Medicare annual wellness visit, subsequent (Z00.00) - Counseled on healthy diet and regular exercise - Fall avoidance information provided - Personalized prevention plan provided - Discussed need for and benefit of weight loss. BMI 41.10 kg/(m2) - Counseled patient on alcohol intake and associated health risks [facility] 01-19-2025 History of Present illness Narrative Radiology Service Progress Note PATIENT NAME: Shahbaz Mittal DATE OF SERVICE: January 19, 2025 TIME: 3:06 PM PATIENT IDENTITY VERIFICATION COMPLETED USING TWO (2) IDENTIFIERS: Name and Date of confirmed by patient verbally. FALL SCREENING: Has the patient had 2 falls in the last year or 1 fall with injury or currently using an Ambulatory Assistive Device (Walker, Cane, Wheelchair, Crutches, etc.)? No PATIENT GENDER DATA: Assigned male at PATIENT RELEVANT IMPLANT DATA REVIEWED: Not Applicable PATIENT PRESENTS WITH AN IMPLANTABLE OR ATTACHED CLINICAL CYTOGENETICIST SCIENTIST: No RADIOLOGY DEPARTMENT: Ultrasound PERIPHERAL IV DATA: Not applicable SIGNED BY: Helene Centeno RDMS RVT January 19, 2025 3:06 PM documented in this encounter [facility] 01-19-2025 Note HNO ID: [id number] Author: HELENE CENTENO RDMS Service: ? Author Type: Squadron Worker Type: Progress Notes Filed: 01/19/2025 15:06 Note Text: Radiology Service Progress Note PATIENT NAME: Shahbaz Mittal DATE OF SERVICE: January 19, 2025 TIME: 3:06 PM PATIENT IDENTITY VERIFICATION COMPLETED USING TWO (2) IDENTIFIERS: Name and Date of confirmed by patient verbally. FALL SCREENING: Has the patient had 2 falls in the last year or 1 fall with injury or currently using an Ambulatory Assistive Device (Walker, Cane, Wheelchair, Crutches, etc.)? No PATIENT GENDER DATA: Assigned male at PATIENT RELEVANT IMPLANT DATA REVIEWED: Not Applicable PATIENT PRESENTS WITH AN IMPLANTABLE OR ATTACHED CLINICAL CYTOGENETICIST SCIENTIST: No RADIOLOGY DEPARTMENT: Ultrasound PERIPHERAL IV DATA: Not applicable SIGNED BY: Helene Centeno RDMS RVT January 19, 2025 3:06 PM [facility] 07-24-2024 Note HNO ID: [id number] Author: MARTIR MULLER MD Service: ? Author Type: Physician Type: Progress Notes Filed: 07/24/2024 12:45 Note Text: This note was created using [employer]. Subjective Shahbaz Mittal is a 68 year old male. He was doing well and had no new concerns. We reviewed his test results. His home glucose readings were reported to be in the 130- 150 range fasting. Review of Systems Constitutional: Negative for fatigue and unexpected weight change. Respiratory: Negative for cough and shortness of breath. Cardiovascular: Negative for chest pain, palpitations and leg swelling. Gastrointestinal: Negative for abdominal pain, constipation, diarrhea, nausea and vomiting. Neurological: Negative for dizziness and headaches. ACTIVE PROBLEM LIST Pure Hypercholesterolemia Cad (Coronary Artery Disease) Hypertension S/P Cabg X 4 Obesity, Class II, Bmi 35-39.9 Type 2 Diabetes Mellitus With Stage 2 Chronic Kidney Disease, Without Long-Term Current Use of Insulin ([facility]) ([facility]) Social History Tobacco Use Smoking status: Former Types: Pipe Quit date: 10/30/2001 Years since quittin.7 Smokeless tobacco: Former Tobacco comments: 4-5 pipes per day, 30 years Vaping Use Vaping status: Never Used Substance Use Topics Alcohol use: Yes Comment: 2 beer per month Drug use: Not Currently Types: Marijuana Current Outpatient Medications Medication Sig lisinopril (ZESTRIL) 40 mg tablet Take 1 tablet by mouth once daily. atorvastatin (LIPITOR) 40 mg tablet Take 1 tablet by mouth daily at bedtime. metoprolol tartrate, short acting, (LOPRESSOR) 25 mg tablet Take 1 tablet by mouth two times a day. Lancets Test blood sugar(s) 1 times daily. Dx: Type 2 DM - Controlled E11.9 Insulin: No blood sugar diagnostic (BLOOD GLUCOSE TEST) test strip Test blood sugar(s) 1 times daily. Dx: Type 2 DM - Controlled E11.9 Insulin: No amLODIPine (NORVASC) 2.5 mg tablet Take 1 tablet by mouth once daily. aspirin 81 mg cap Take 81 mg by mouth once daily. omega-3/epa/fish oil (OMEGA-3 FATTY ACIDS-EPA ORAL) Take by mouth once daily. COMPOUNDED PRESCRIPTION arthermend over the counter med for arthritis Aspirin 81 mg Tab Take 1 tablet by mouth once daily. Take with food. No current facility-administered medications for this visit. Objective BP 127/83 (BP Site: Left Arm, BP Position: Sitting, BP Cuff Size: Large Adult) Pulse 69 Temp 36.8 ?C (98.2 ?F) (Temporal) Resp 24 Wt 121 kg (266 lb 12.1 oz) BMI 41.04 kg/m? Physical Exam Constitutional: General: He is not in acute distress. Appearance: He is not ill-appearing. Eyes: General: No scleral icterus. Cardiovascular: Rate and Rhythm: Normal rate and regular rhythm. Heart sounds: No murmur heard. No gallop. Pulmonary: Breath sounds: Normal breath sounds. Abdominal: Palpations: Abdomen is soft. There is no mass. Tenderness: There is no abdominal tenderness. Musculoskeletal: Right lower leg: No edema. Left lower leg: No edema. Neurological: Mental Status: He is alert. Latest Ref Rn 07/15/2024 Protein, Total 6.3 - 8.0 g/dL 7.5 Albumin 3.9 - 4.9 g/dL 4.5 Calcium 8.5 - 10.2 mg/dL 9.8 Bilirubin, Total 0.2 - 1.3 mg/dL 0.4 Alkaline Phosphatase 38 - 113 U/L 53 AST 14 - 40 U/L 46 (H) ALT 10 - 54 U/L 86 (H) Glucose 74 - 99 mg/dL 132 (H) BUN 9 - 24 mg/dL 16 Creatinine 0.73 - 1.22 mg/dL 1.17 Sodium 136 - 144 mmol/L 140 Potassium 3.7 - 5.1 mmol/L 4.5 Chloride 98 - 107 mmol/L 102 CO2 22 - 30 mmol/L 25 Anion Gap 8 - 15 mmol/L 13 eGFR >=60 mL/min/1.73m? 68 Cholesterol, Total <200 mg/dL 127 Triglyceride <150 mg/dL 115 HDL Cholesterol >39 mg/dL 33 (L) Non HDL Cholesterol <130 mg/dL 94 Fasting Time hrs 12 VLDL Cholesterol <30 mg/dL 23 TC:HDL Ratio <5.10 3.85 LDL Cholesterol <100 mg/dL 71 LDL:HDL Ratio <2.54 2.15 Creatinine, Ur Random (UCRR) 20.0 - 300.0 mg/dL 147.5 Albumin, Urine Random mg/L <12.0 Albumin/Creat Ratio <30 mg/g <8 Hemoglobin A1C 4.3 - 5.6 % 7.0 (H) Estimated Average Glucose mg/dL 154 Legend: (H) High (L) Low Assessment and Plan 1. Pure hypercholesterolemia - ICD9: 272.0, ICD10: E78.00 (primary diagnosis) Controlled. - Continue diet and medication. 2. Primary hypertension - ICD9: 401.9, ICD10: I10 - Controlled - Continue current medications - Discussed need for and benefit of weight loss. BMI 41.04 kg/(m2) - AMLODIPINE 2.5 MG TABLET - COMPLETE BLOOD COUNT 3. Coronary artery disease involving tazlina coronary artery of tazlina heart without angina pectoris - ICD9: 414.01, ICD10: I25.10 - Stable. 4. Obesity, Class II, BMI 35-39.9 - ICD9: 278.00, ICD10: E66.812 - Stable. 5. Type 2 diabetes mellitus with stage 2 chronic kidney disease, without long-term current use of insulin (HCC) ([facility]) - ICD9: 250.40, 585.2, ICD10: E11.22, N18.2 - Controlled - Continue current medications - Counseled on healthy diet and regular exercise - eGFR: 68 Stable (more content not included)... [facility] 07-24-2024 History of Present illness Narrative This note was created using [employer]. Subjective Shahbaz Mittal is a 68 year old male. He was doing well and had no new concerns. We reviewed his test results. His home glucose readings were reported to be in the 130- 150 range fasting. Review of Systems Constitutional: Negative for fatigue and unexpected weight change. Respiratory: Negative for cough and shortness of breath. Cardiovascular: Negative for chest pain, palpitations and leg swelling. Gastrointestinal: Negative for abdominal pain, constipation, diarrhea, nausea and vomiting. Neurological: Negative for dizziness and headaches. ACTIVE PROBLEM LIST Pure Hypercholesterolemia Cad (Coronary Artery Disease) Hypertension S/P Cabg X 4 Obesity, Class II, Bmi 35-39.9 Type 2 Diabetes Mellitus With Stage 2 Chronic Kidney Disease, Without Long-Term Current Use of Insulin ([facility]) (Hcc) Social History Tobacco Use Smoking status: Former Types: Pipe Quit date: 10/30/2001 Years since quittin.7 Smokeless tobacco: Former Tobacco comments: 4-5 pipes per day, 30 years Vaping Use Vaping status: Never Used Substance Use Topics Alcohol use: Yes Comment: 2 beer per month Drug use: Not Currently Types: Marijuana Current Outpatient Medications Medication Sig lisinopril (ZESTRIL) 40 mg tablet Take 1 tablet by mouth once daily. atorvastatin (LIPITOR) 40 mg tablet Take 1 tablet by mouth daily at bedtime. metoprolol tartrate, short acting, (LOPRESSOR) 25 mg tablet Take 1 tablet by mouth two times a day. Lancets Test blood sugar(s) 1 times daily. Dx: Type 2 DM - Controlled E11.9 Insulin: No blood sugar diagnostic (BLOOD GLUCOSE TEST) test strip Test blood sugar(s) 1 times daily. Dx: Type 2 DM - Controlled E11.9 Insulin: No amLODIPine (NORVASC) 2.5 mg tablet Take 1 tablet by mouth once daily. aspirin 81 mg cap Take 81 mg by mouth once daily. omega-3/epa/fish oil (OMEGA-3 FATTY ACIDS-EPA ORAL) Take by mouth once daily. COMPOUNDED PRESCRIPTION arthermend over the counter med for arthritis Aspirin 81 mg Tab Take 1 tablet by mouth once daily. Take with food. No current facility-administered medications for this visit. Objective BP 127/83 (BP Site: Left Arm, BP Position: Sitting, BP Cuff Size: Large Adult) Pulse 69 Temp 36.8 C (98.2 F) (Temporal) Resp 24 Wt 121 kg (266 lb 12.1 oz) BMI 41.04 kg/m Physical Exam Constitutional: General: He is not in acute distress. Appearance: He is not ill-appearing. Eyes: General: No scleral icterus. Cardiovascular: Rate and Rhythm: Normal rate and regular rhythm. Heart sounds: No murmur heard. No gallop. Pulmonary: Breath sounds: Normal breath sounds. Abdominal: Palpations: Abdomen is soft. There is no mass. Tenderness: There is no abdominal tenderness. Musculoskeletal: Right lower leg: No edema. Left lower leg: No edema. Neurological: Mental Status: He is alert. Latest Ref Rn 07/15/2024 Protein, Total 6.3 - 8.0 g/dL 7.5 Albumin 3.9 - 4.9 g/dL 4.5 Calcium 8.5 - 10.2 mg/dL 9.8 Bilirubin, Total 0.2 - 1.3 mg/dL 0.4 Alkaline Phosphatase 38 - 113 U/L 53 AST 14 - 40 U/L 46 (H) ALT 10 - 54 U/L 86 (H) Glucose 74 - 99 mg/dL 132 (H) BUN 9 - 24 mg/dL 16 Creatinine 0.73 - 1.22 mg/dL 1.17 Sodium 136 - 144 mmol/L 140 Potassium 3.7 - 5.1 mmol/L 4.5 Chloride 98 - 107 mmol/L 102 CO2 22 - 30 mmol/L 25 Anion Gap 8 - 15 mmol/L 13 eGFR >=60 mL/min/1.73m 68 Cholesterol, Total <200 mg/dL 127 Triglyceride <150 mg/dL 115 HDL Cholesterol >39 mg/dL 33 (L) Non HDL Cholesterol <130 mg/dL 94 Fasting Time hrs 12 VLDL Cholesterol <30 mg/dL 23 TC:HDL Ratio <5.10 3.85 LDL Cholesterol <100 mg/dL 71 LDL:HDL Ratio <2.54 2.15 Creatinine, Ur Random (UCRR) 20.0 - 300.0 mg/dL 147.5 Albumin, Urine Random mg/L <12.0 Albumin/Creat Ratio <30 mg/g <8 Hemoglobin A1C 4.3 - 5.6 % 7.0 (H) Estimated Average Glucose mg/dL 154 Legend: (H) High (L) Low Assessment and Plan 1. Pure hypercholesterolemia - ICD9: 272.0, ICD10: E78.00 (primary diagnosis) Controlled. - Continue diet and medication. 2. Primary hypertension - ICD9: 401.9, ICD10: I10 - Controlled - Continue current medications - Discussed need for and benefit of weight loss. BMI 41.04 kg/(m^2) - AMLODIPINE 2.5 MG TABLET - COMPLETE BLOOD COUNT 3. Coronary artery disease involving tazlina coronary artery of tazlina heart without angina pectoris - ICD9: 414.01, ICD10: I25.10 - Stable. 4. Obesity, Class II, BMI 35-39.9 - ICD9: 278.00, ICD10: E66.812 - Stable. 5. Type 2 diabetes mellitus with stage 2 chronic kidney disease, without long-term current use of insulin (HCC) (HCC) - ICD9: 250.40, 585.2, ICD10: E11.22, N18.2 - Controlled - Continue current medications - Counseled on healthy diet and regular exercise - eGFR: 68 Stable - BLOOD SUGAR DIAGNOSTIC STRIPS - HEMOGLOBIN A1C 6. Elevated liver enzymes - ICD9: 790.5, ICD10: R74.8 We discussed NAFLD, risks, and agreed to further evaluation. - COMPREHENSIVE METABOLIC PANEL - HEP REMOTE PANEL BL - US ABD RIGHT UPPER QUADRANT Martir Muller MD documented in this encounter [facility] 06-09-2024 Note HNO ID: [id number] Author: EULA DÍAZ, JENNY Service: ? Author Type: FLAGMAN Type: Progress Notes Filed: 06/09/2024 14:32 Note Text: 1. Type 2 diabetes mellitus without retinopathy (HCC) Risk of diabetic changes and vision loss can be minimized by tight control of blood sugar, blood pressure, and cholesterol levels. Educated patient to continue care with primary care doctor and/or admitting coordinator to maintain optimum levels as they are important to avoid ocular complications. Encouraged patient to call the office immediately with any changes to vision or visual concerns. Advised to not wait until the next scheduled exam. 2. Posterior vitreous detachment of left eye Stable Urged patient to call with any new flashes/floaters 3. Combined forms of age-related cataract of both eyes Mild- monitor 4. Regular astigmatism of both eyes 5. Presbyopia Continue with current glasses 6. Meibomian gland dysfunction (MGD) of upper and lower lids of both eyes Recommend warm compresses daily Follow-up in 1 year for MELANIE Díaz, OD June 09, 2024 2:31 PM [facility] 06-09-2024 History of Present illness Narrative 1. Type 2 diabetes mellitus without retinopathy (HCC) Risk of diabetic changes and vision loss can be minimized by tight control of blood sugar, blood pressure, and cholesterol levels. Educated patient to continue care with primary care doctor and/or admitting coordinator to maintain optimum levels as they are important to avoid ocular complications. Encouraged patient to call the office immediately with any changes to vision or visual concerns. Advised to not wait until the next scheduled exam. 2. Posterior vitreous detachment of left eye Stable Urged patient to call with any new flashes/floaters 3. Combined forms of age-related cataract of both eyes Mild- monitor 4. Regular astigmatism of both eyes 5. Presbyopia Continue with current glasses 6. Meibomian gland dysfunction (MGD) of upper and lower lids of both eyes Recommend warm compresses daily Follow-up in 1 year for MELANIE Díaz, OD June 09, 2024 2:31 PM documented in this encounter [facility] 04-09-2024 Telephone encounter Note Prescription Refill Information The patient has been identified by name and date of : Yes Caregiver verified no other encounters exist for this prescription request: Yes Caregiver confirmed with patient/requestor that no other refills are due, in the near future, with this provider at this time: Yes The last office visit in the department: 01-22-24 Does the patient have a future office visit with this provider/department: Yes Requested Prescriptions Pending Prescriptions Disp Refills lisinopril (ZESTRIL) 40 mg tablet 90 tablet 3 Sig: Take 1 tablet by mouth once daily. atorvastatin (LIPITOR) 40 mg tablet 90 tablet 3 Sig: Take 1 tablet by mouth daily at bedtime. metoprolol tartrate, short acting, (LOPRESSOR) 25 mg tablet 180 tablet 3 Sig: Take 1 tablet by mouth two times a day. Shira Molina April 09, 2024 10:04 AM [facility] 04-09-2024 Miscellaneous Notes Prescription Refill Information The patient has been identified by name and date of : Yes Caregiver verified no other encounters exist for this prescription request: Yes Caregiver confirmed with patient/requestor that no other refills are due, in the near future, with this provider at this time: Yes The last office visit in the department: 01-22-24 Does the patient have a future office visit with this provider/department: Yes Requested Prescriptions Pending Prescriptions Disp Refills lisinopril (ZESTRIL) 40 mg tablet 90 tablet 3 Sig: Take 1 tablet by mouth once daily. atorvastatin (LIPITOR) 40 mg tablet 90 tablet 3 Sig: Take 1 tablet by mouth daily at bedtime. metoprolol tartrate, short acting, (LOPRESSOR) 25 mg tablet 180 tablet 3 Sig: Take 1 tablet by mouth two times a day. Shira Molina April 09, 2024 10:04 AM documented in this encounter [facility] 02-05-2024 Note HNO ID: [id number] Author: EULA DÍAZ OD Service: ? Author Type: FLAGMAN Type: Progress Notes Filed: 02/05/2024 13:06 Note Text: 1. Posterior vitreous detachment of left eye Educated pt on condition NO holes/tears/RDs Went over retina precautions and to call LARS with any increase in flashes/floaters 2. Type 2 diabetes mellitus without retinopathy (HCC) Risk of diabetic changes and vision loss can be minimized by tight control of blood sugar, blood pressure, and cholesterol levels. Educated patient to continue care with primary care doctor and/or admitting coordinator to maintain optimum levels as they are important to avoid ocular complications. Encouraged patient to call the office immediately with any changes to vision or visual concerns. Advised to not wait until the next scheduled exam. 3. Hypertensive retinopathy of both eyes No current hemes- continue to monitor 4. Combined forms of age-related cataract of both eyes Monitor 5. Regular astigmatism of both eyes 6. Presbyopia Continue with current glasses Follow-up as scheduled in June for MELANIE Díaz, JENNY February 05, 2024 1:05 PM [facility] 02-05-2024 History of Present illness Narrative 1. Posterior vitreous detachment of left eye Educated pt on condition NO holes/tears/RDs Went over retina precautions and to call LARS with any increase in flashes/floaters 2. Type 2 diabetes mellitus without retinopathy (HCC) Risk of diabetic changes and vision loss can be minimized by tight control of blood sugar, blood pressure, and cholesterol levels. Educated patient to continue care with primary care doctor and/or admitting coordinator to maintain optimum levels as they are important to avoid ocular complications. Encouraged patient to call the office immediately with any changes to vision or visual concerns. Advised to not wait until the next scheduled exam. 3. Hypertensive retinopathy of both eyes No current hemes- continue to monitor 4. Combined forms of age-related cataract of both eyes Monitor 5. Regular astigmatism of both eyes 6. Presbyopia Continue with current glasses Follow-up as scheduled in June for MELANIE Díaz, OD February 05, 2024 1:05 PM documented in this encounter [facility] 01-22-2024 Instructions Martir Muller MD - 01/22/2024 10:47 AM EDT VACCINES AT YOUR PHARMACY RSV Vaccine(1 - 1-dose 60+ series) Never done Shingrix Vaccines (2 doses) documented in this encounter [facility] 01-22-2024 History of Present illness Narrative This note was created using [employer]. Subjective Shahbaz Mittal is a 68 year old male. He was doing well and had no concerns. His conditions were controlled and stable. Review of Systems Constitutional: Negative for fatigue, fever and unexpected weight change. HENT: Negative. Eyes: Negative for visual disturbance. Respiratory: Negative for cough and shortness of breath. Cardiovascular: Negative for chest pain, palpitations and leg swelling. Gastrointestinal: Negative for abdominal pain, constipation and diarrhea. Genitourinary: Negative for difficulty urinating. Neurological: Negative for dizziness and headaches. ACTIVE PROBLEM LIST Pure Hypercholesterolemia Cad (Coronary Artery Disease) Hypertension S/P Cabg X 4 Obesity, Class II, Bmi 35-39.9 Type 2 Diabetes Mellitus With Stage 2 Chronic Kidney Disease, Without Long-Term Current Use of Insulin (Hcc) (Hcc) Social History Tobacco Use Smoking status: Former Types: Pipe Quit date: 10/30/2001 Years since quittin.2 Smokeless tobacco: Former Tobacco comments: 4-5 pipes per day, 30 years Vaping Use Vaping Use: Never used Substance Use Topics Alcohol use: Yes Comment: 2 beer per month Drug use: Not Currently Types: Marijuana Current Outpatient Medications Medication Sig Lancets Test blood sugar(s) 1 times daily. Dx: Type 2 DM - Controlled E11.9 Insulin: No blood sugar diagnostic (BLOOD GLUCOSE TEST) test strip Test blood sugar(s) 1 times daily. Dx: Type 2 DM - Controlled E11.9 Insulin: No amLODIPine (NORVASC) 2.5 mg tablet Take 1 tablet by mouth once daily. atorvastatin (LIPITOR) 40 mg tablet Take 1 tablet by mouth daily at bedtime. metoprolol tartrate, short acting, (LOPRESSOR) 25 mg tablet Take 1 tablet by mouth two times a day. lisinopril (ZESTRIL) 40 mg tablet Take 1 tablet by mouth once daily. aspirin 81 mg cap Take 81 mg by mouth once daily. omega-3/epa/fish oil (OMEGA-3 FATTY ACIDS-EPA ORAL) Take by mouth once daily. COMPOUNDED PRESCRIPTION arthermend over the counter med for arthritis Aspirin 81 mg Tab Take 1 tablet by mouth once daily. Take with food. No current facility-administered medications for this visit. Objective BP 129/80 (BP Site: Left Arm, BP Position: Sitting, BP Cuff Size: Large Adult) Pulse 73 Temp 36.3 C (97.3 F) (Temporal) Resp 24 Ht 171.7 cm (5' 7.6") Wt 118.4 kg (261 lb) BMI 40.16 kg/m Physical Exam Constitutional: Appearance: He is not ill-appearing. HENT: Head: Normocephalic. Eyes: Extraocular Movements: Extraocular movements intact. Conjunctiva/sclera: Conjunctivae normal. Cardiovascular: Rate and Rhythm: Normal rate and regular rhythm. Heart sounds: No murmur heard. No gallop. Pulmonary: Breath sounds: Normal breath sounds. No wheezing or rales. Abdominal: Palpations: Abdomen is soft. Tenderness: There is no abdominal tenderness. Musculoskeletal: Right lower leg: No edema. Left lower leg: No edema. Neurological: Mental Status: He is alert. Gait: Gait normal. Latest Ref Rng 01/09/2024 Glucose 74 - 99 mg/dL 123 (H) BUN 9 - 24 mg/dL 16 Creatinine 0.73 - 1.22 mg/dL 1.20 Sodium 136 - 144 mmol/L 138 Potassium 3.7 - 5.1 mmol/L 4.3 Chloride 98 - 107 mmol/L 105 CO2 22 - 30 mmol/L 22 Anion Gap 8 - 15 mmol/L 11 Calcium 8.5 - 10.2 mg/dL 9.2 eGFR >=60 mL/min/1.73m 66 Legend: (H) High Assessment and Plan 1. Medicare annual wellness visit, subsequent - ICD9: V70.0, ICD10: Z00.00 (primary diagnosis) - see wellness note. 2. Type 2 diabetes mellitus with stage 2 chronic kidney disease, without long-term current use of insulin (HCC) (HCC) - ICD9: 250.40, 585.2, ICD10: E11.22, N18.2 - Controlled - Continue current medications - eGFR: 66 Improving - Counseled on avoiding NSAIDs, adequate hydration - COMPREHENSIVE METABOLIC PANEL - HEMOGLOBIN A1C - ALBUMIN/CREATININE RATIO, URINE 3. Primary hypertension - ICD9: 401.9, ICD10: I10 - Controlled - Continue current medications - Discussed need for and benefit of weight loss. BMI 40.16 kg/(m^2) 4. Pure hypercholesterolemia - ICD9: 272.0, ICD10: E78.00 - Controlled. - Continue medication. - LIPID PANEL BASIC 5. Obesity, Class II, BMI 35-39.9 - ICD9: 278.00, ICD10: E66.9 - Stable. 6. Coronary artery disease involving tazlina coronary artery of tazlina heart without angina pectoris - ICD9: 414.01, ICD10: I25.10 - Stable. Continue current management per [facility]. Martir Muller MD Images from the original note were not included. Shahbaz Mittal is a 68 year old male here for a Medicare wellness visit. Medicare Health Risk Assessment General Health Good Exercise: Minutes/Day 50 min Exercise: Days/Week 3 days Alcohol: Daily Use Monthly or less Alcohol: Drinks/Day 1 or 2 Alcohol: 6 or more drinks Never Feel off balance No Concerns: Teeth/Dentures No Concerns: Sexual function No Troubled by feelings None of the above Frequency: Eating healthy diet Several days ADLs requiring help None of the above Safety precautions in home/vehicle Yes Smoke, vape, chews tobacco No Difficulty hearing No Difficulty seeing No Current Providers Specialists: I have reviewed specialist-related care of the patient in the medical record. Current care team: Patient Care Team: Martir Muller MD as PCP - General (Internal Medicine) Outside specialists seen: Cedrick Mcduffie MD, Cardiology, [facility]. Eula Díaz, JENNY, Optometry. Medical/Family history review Reviewed and updated problem list, medical/surgical/family/social history, medications, and allergies. Opioid use review Opioid Medications (last 90 days) No data to display Anxiety/Depression screening PHQ-9 Score: 2 (Minimal Depression) CHANDRIKA-7 Score: 0. Recommendation: no further intervention at this time Cognitive screening Cognitive screening reviewed and No further action needed (score 3-5). Functional Observation Was the patient's Timed Up & Go test unsteady or ? 12 seconds? No Advance Care Planning Patient did not wish or was not able to name a surrogate decision maker or provide an advance care plan Measurements BP 129/80 Pulse 73 Temp (Src) 97.3 (Temporal) Resp 24 Ht 5' 7.6" (1.72m) Wt 261 lb (118.4kg) BMI 40.16 kg/(m^2). Vision Screening: Follows with optometry/ophthalmology Right: 20/40 Left: 20/ 25 Both: 20/30 Assessment/Plan Medicare annual wellness visit, subsequent (Z00.00) - Counseled on healthy diet and regular exercise - Fall avoidance information provided - Personalized prevention plan provided - Discussed need for and benefit of weight loss. BMI 40.16 kg/(m^2) - Vaccine recommendations reviewed. documented in this encounter [facility] 01-08-2024 Note Date of Procedure 01/08/2024. Interpretation Right Eye Normal without fluid. Left Eye Normal without fluid. Interval Change Right Eye Initial. Left Eye Initial. [facility] 01-08-2024 History of Present illness Narrative 1. Posterior vitreous detachment of left eye Educated pt on condition Went over retina precautions and to call L[facility] with any increase in flashes/floaters 2. Type 2 diabetes mellitus without retinopathy (HCC) Risk of diabetic changes and vision loss can be minimized by tight control of blood sugar, blood pressure, and cholesterol levels. Educated patient to continue care with primary care doctor and/or admitting coordinator to maintain optimum levels as they are important to avoid ocular complications. Encouraged patient to call the office immediately with any changes to vision or visual concerns. Advised to not wait until the next scheduled exam. 3. Hypertensive retinopathy of both eyes No current hemes- continue to monitor 4. Combined forms of age-related cataract of both eyes Mild- monitor 5. Regular astigmatism of both eyes 6. Presbyopia Continue with current glasses Follow-up in 3-4 weeks for PVD follow-up left eye Eula Díaz, OD January 08, 2024 2:09 PM documented in this encounter [facility] 10-18-2023 History of Present illness Narrative This note was created using [employer]. Subjective Shahbaz Mittal is a 68 year old male. He felt well and had no concerns. We reviewed his labs. Blood pressure was elevated today. 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 Review of Systems Constitutional: Negative for fatigue and unexpected weight change. Respiratory: Negative for chest tightness and shortness of breath. Cardiovascular: Negative for chest pain, palpitations and leg swelling. Musculoskeletal: Negative for neck pain. Neurological: Negative for dizziness, numbness and headaches. ACTIVE PROBLEM LIST Pure Hypercholesterolemia Cad (Coronary Artery Disease) Hypertension S/P Cabg X 4 Obesity, Class II, Bmi 35-39.9 Type 2 Diabetes Mellitus With Stage 2 Chronic Kidney Disease, Without Long-Term Current Use of Insulin (Hcc) (Hcc) Spasm of Muscle of Lower Back Stiff Neck Social History Tobacco Use Smoking status: Former Types: Pipe Quit date: 10/30/2001 Years since quittin.9 Smokeless tobacco: Former Tobacco comments: 4-5 pipes per day, 30 years Vaping Use Vaping Use: Never used Substance Use Topics Alcohol use: Yes Comment: 2 beer per month Drug use: Not Currently Types: Marijuana Current Outpatient Medications Medication Sig blood sugar diagnostic (BLOOD GLUCOSE TEST) test strip Test blood sugar(s) 1 times daily. Dx: Type 2 DM - Controlled E11.9 Insulin: No amLODIPine (NORVASC) 2.5 mg tablet Take 1 tablet by mouth once daily. cyclobenzaprine (FLEXERIL) 10 mg tablet Take 1 tablet by mouth three times a day as needed for muscle spasm. atorvastatin (LIPITOR) 40 mg tablet Take 1 tablet by mouth daily at bedtime. metoprolol tartrate, short acting, (LOPRESSOR) 25 mg tablet Take 1 tablet by mouth two times a day. lisinopril (ZESTRIL) 40 mg tablet Take 1 tablet by mouth once daily. aspirin 81 mg cap Take 81 mg by mouth once daily. omega-3/epa/fish oil (OMEGA-3 FATTY ACIDS-EPA ORAL) Take by mouth once daily. Lancets lancets Test blood sugar(s) 1 times daily. Dx: Type 2 DM - Controlled E11.9 Insulin: No COMPOUNDED PRESCRIPTION arthermend over the counter med for arthritis meloxicam (MOBIC) 15 mg tablet Take 1 tablet by mouth once daily. With food. (Patient not taking: Reported on 10/18/2023) [place]-3 Fatty Acids 500 mg cap Take 2 capsules by mouth once daily. (Patient not taking: Reported on 05/01/2023) Aspirin 81 mg Tab Take 1 tablet by mouth once daily. Take with food. No current facility-administered medications for this visit. Objective Blood Pressure 137/74 (BP Site: Left Arm, BP Position: Sitting, BP Cuff Size: Large Adult) Pulse 66 Temperature 36.1 C (96.9 F) (Temporal) Respiration 24 Weight 120.7 kg (266 lb) Body Mass Index 39.86 kg/m Physical Exam Constitutional: General: He is not in acute distress. Cardiovascular: Rate and Rhythm: Normal rate and regular rhythm. Heart sounds: No murmur heard. No gallop. Pulmonary: Effort: No respiratory distress. Breath sounds: No wheezing or rales. Musculoskeletal: Right lower leg: No edema. Left lower leg: No edema. Neurological: Mental Status: He is alert. Feet:Shoes and socks removed, No deformities, ulcers, calluses, normal distal pulses, and sensitive to 10 gm monofilament Latest Ref Rng 10/04/2023 Protein, Total 6.3 - 8.0 g/dL 7.2 Albumin 3.9 - 4.9 g/dL 4.2 Calcium 8.5 - 10.2 mg/dL 9.4 Bilirubin, Total 0.2 - 1.3 mg/dL 0.5 Alkaline Phosphatase 38 - 113 U/L 62 AST 14 - 40 U/L 42 (H) ALT 10 - 54 U/L 75 (H) Glucose 74 - 99 mg/dL 136 (H) BUN 9 - 24 mg/dL 15 Creatinine 0.73 - 1.22 mg/dL 1.24 (H) Sodium 136 - 144 mmol/L 138 Potassium 3.7 - 5.1 mmol/L 4.2 Chloride 97 - 105 mmol/L 103 CO2 22 - 30 mmol/L 21 (L) Anion Gap 9 - 18 mmol/L 14 eGFR >=60 mL/min/1.73m 63 Cholesterol, Total <200 mg/dL 112 Triglyceride <150 mg/dL 119 HDL Cholesterol >39 mg/dL 28 (L) Non HDL Cholesterol <130 mg/dL 84 Fasting Time hrs 12 VLDL Cholesterol <30 mg/dL 24 TC:HDL Ratio <5.10 4.00 LDL Cholesterol <100 mg/dL 60 LDL:HDL Ratio <2.54 2.14 Hemoglobin A1C 4.3 - 5.6 % 6.8 (H) Estimated Average Glucose mg/dL 148 Legend: (H) High (L) Low Assessment and Plan 1. Type 2 diabetes mellitus with stage 2 chronic kidney disease, without long-term current use of insulin (HCC) (HCC) - ICD9: 250.40, 585.2, ICD10: E11.22, N18.2 (primary diagnosis) - Controlled - Continue current medications - Discussed need for and benefit of weight loss. BMI 39.86 kg/(m^2) - eGFR: 63 Worsening - Counseled on avoiding NSAIDs, adequate hydration - LANCETS - BASIC METABOLIC PANEL 2. Primary hypertension - ICD9: 401.9, ICD10: I10 - Worsening control - Continue current medications - Recommend home blood pressure monitoring, to bring results to next visit - Encouraged sodium restriction, DASH or Mediterranean diet - Discussed need for and benefit of weight loss. BMI 39.86 kg/(m^2) - Follow up in 3 months for hypertension visit 3. Pure hypercholesterolemia - ICD9: 272.0, ICD10: E78.00 Controlled. - Continue medication and diet. 4. Coronary artery disease involving t[place] coronary artery of taz[place] heart without angina pectoris - ICD9: 414.01, ICD10: I25.10 Stable. - See cardiology. Martir Muller MD documented in this encounter [facility] 09-18-2023 History of Present illness Narrative POPULATION HEALTH NAVIGATION OUTREACH Action/FYI spoke to pt to schedule wellness, pt said that he will schedule it at his next follow up appointment Reason for Outreach Care Gap/HCC or Scheduling Wellness Visits Care Gaps due: Medicare Annual Wellness Visit Patient Contacted: Spoke to patient/parent/or legal guardian Patient identified by name and : Yes Care Gap/HCC/Scheduling Wellness actions taken: Patient declined: Would like to manage scheduling their own appointments Navigation Signature: June Brower MA September 18, 2023 10:42 AM documented in this encounter [facility] 09-17-2023 Miscellaneous Notes Requested Prescriptions Pending Prescriptions Disp Refills blood sugar diagnostic (BLOOD GLUCOSE TEST) test strip 50 Strip 11 Sig: Test blood sugar(s) 1 times daily. Dx: Type 2 DM - Controlled E11.9 Insulin: No Date of last office visit in primary care: 04/18/2023 Date of next office visit in primary care: 10/18/2023 Please advise. Thank you. Bolivar Angel Ma. Pharmacy verified in [facility] Patient has been identified by name and date of : Yes Patient aware RX will be sent to pharmacy. No need to notify patient. Patient phones for refill(s): Requested Prescriptions Pending Prescriptions Disp Refills blood sugar diagnostic (BLOOD GLUCOSE TEST) test strip 50 Strip 11 Sig: Test blood sugar(s) 1 times daily. Dx: Type 2 DM - Controlled E11.9 Insulin: No Date of last office visit : Visit date not found Date of next office visit : Visit date not found Last 2 Encounter Wt Readings: Date: Wt: 05/01/2023 123.5 kg (272 lb 3.2 oz) 10/17/2022 121.1 kg (267 lb) Not applicable Please advise. Karen Mayes Pss documented in this encounter [facility] 08-20-2023 Miscellaneous Notes Requested Prescriptions Pending Prescriptions Disp Refills amLODIPine (NORVASC) 2.5 mg tablet 90 tablet 3 Sig: Take 1 tablet by mouth once daily. Date of last office visit in primary care: 04/18/2023 Date of next office visit in primary care: 10/18/2023 Please advise. Thank you. Bolivar Angel Ma. Patient has been identified by name and date of : Patient phones for refill(s): Requested Prescriptions Pending Prescriptions Disp Refills amLODIPine (NORVASC) 2.5 mg tablet 90 tablet 3 Sig: Take 1 tablet by mouth once daily. Date of last office visit in primary care: 04/18/2023 Date of next office visit in primary care: 10/18/2023 Please advise. Thank you. Marian Bartholomew. documented in this encounter [facility] 08-03-2023 History of Present illness Narrative Episode Visit Count: 7 Therapist That Will Accept/Oversee The Plan Of Care: Neri Zazueta Start of Care Date: 05/23/23 Onset Date: 02/20/23 Plan of Care Certification Date: 05/23/23 Next Certification Due Date: 07/23/23 REHABILITATION AND SPORTS THERAPY PHYSICAL THERAPY DISCONTINUANCE OF CARE PLAN OF CARE UPDATE: Assessment: Shahbaz Mittal is discontinued from Physical Therapy services due to goal achievement and maximal benefit.. Patient was seen for 7 visits from Start of Care Date: 05/23/23 to 08/03/2023 and treatment included: Therapeutic exercise, Manual therapy, and Self-skilled nursing management. Patient has seen resolution of his pain and met all therapy goals. Patient encouraged to reach out to me with any questions or future recurrence of pain Goals updated on 08/03/2023. Goals for Episode of Care: created on 02/20/23 through 08/23/23 Independent in home exercises. Met Patient will decrease pain rating by 2 points to meet minimal clinical important difference for numeric pain rating scale. Met Restore pain-free lumbar ROM to WNL to allow for improved functional Mobility. Met Stand / Walk as needed for ADLs and IADLs without pain/symptoms. Met Sleep through night without pain/symptoms. Met Maintain proper sitting posture throughout session. Met Patient will increase strength of trunk/core to 4/5 to allow for improve ability to complete ADLs. Met SUBJECTIVE: Patient has done well since last being seen with no flare ups and very little tightness and no cramoing/spasm episodes. Functional Limitations: nothing Pain: Pain Pain Level: 1 Pain Location: Low Back/Lumbar Spine - Right Description: Tightness Frequency: Intermittent PROMIS Scales Higher is Better 07/03/2023 05/23/2023 Phys Func - Score 47 (within normal limits) 42 (mild dysfunction) Phys Func - Percentile 38% 21% Self-Eff Symptom - Score 47 (Average) 42 (Average) Self-Eff Symptom - Percentile 38% 21% T-scores: mean of general population = 50. 5 points is clinically meaningfully difference Percentiles provide an indication of how the patient's score ranks in relation to the general population. Higher percentile rankings indicate better function/quality of life. 50th percentile is the average of the general population and indicates half of respondents had a worse score. OBJECTIVE MEASURES WITH LEVEL OF FUNCTION: Spine Observations R Lumbar Spine Palpation Tenderness: No tenderness noted R Thoracic Spine Palpation Comments: no tenderness noted Lumbar Spine AROM Lumbar Flexion: Normal Lumbar Extension: Normal Lumbar R Side-Bend: Normal Lumbar L Side-Bend: Normal Lumbar R Rotation: Normal Lumbar L Rotation: Normal LE Strength Trunk Strength: 4+/5 TREATMENT: Self-Senior Care Management: 1: Discussed HEP, self manual techniques and strategies for progression of strength and fitness at the gym Skilled Intervention: Skilled judgment in the selection of proper modification for activity of daily living/home management based on clinical presentation, deficits, and needs. Reviewed patient specific diagnosis in relation to activities of daily living/home management. Activity progression based on professional judgement. Billing Self-Care/Home Management Treatment Minutes: 13 Skilled Treatment Time Minutes (timed and untimed codes): 13 Total Session Time (minutes): 13 Session Start Time : 1317 Session Stop Time : 1330 Neri Zazueta PT documented in this encounter [facility] 06-14-2023 History of Present illness Narrative Program_ID:[id number] Access Code: [email or web address] URL: [email or web address] Date: 06-14-2023 Prepared By: Neri Zazueta Program Notes Exercises - Hooklying Single Knee to Chest Stretch - 1 x daily - 7 x weekly - 3 sets - 3 reps - Latissimus Dorsi Stretch at Wall - 1 x daily - 7 x weekly - 3 sets - 3 reps - Seated Thoracic Flexion and Rotation with [place] Ball - 1 x daily - 7 x weekly - 3 sets - 3 reps - Standing Anti-Rotation Press with Anchored Resistance - 1 x daily - 7 x weekly - 3 sets - 10 reps - Seated Shoulder Row with Anchored Resistance - 1 x daily - 7 x weekly - 3 sets - 10 reps - Seated Transversus Abdominis Bracing - 1-2 x daily - 7 x weekly - 2 sets - 10 reps Program_ID:[id number] Access Code: [email or web address] URL: [email or web address] Date: 06-14-2023 Prepared By: Neri Zazueta Program Notes Exercises - Hooklying Single Knee to Chest Stretch - 1 x daily - 7 x weekly - 3 sets - 3 reps - Latissimus Dorsi Stretch at Wall - 1 x daily - 7 x weekly - 3 sets - 3 reps - Seated Thoracic Flexion and Rotation with [place] Ball - 1 x daily - 7 x weekly - 3 sets - 3 reps - Standing Anti-Rotation Press with Anchored Resistance - 1 x daily - 7 x weekly - 3 sets - 10 reps - Seated Shoulder Row with Anchored Resistance - 1 x daily - 7 x weekly - 3 sets - 10 reps - Seated Transversus Abdominis Bracing - 1 x daily - 7 x weekly - 2 sets - 10 reps Episode Visit Count: 4 Therapist That Will Accept/Oversee The Plan Of Care: Neri Zazueta Start of Care Date: 05/23/23 Onset Date: 02/20/23 Plan of Care Certification Date: 05/23/23 Next Certification Due Date: 07/23/23 Patient Identified by Name and Date of : Yes REHABILITATION AND SPORTS THERAPY PHYSICAL THERAPY TREATMENT NOTE ASSESSMENT: Shahbaz Mittal tolerated the session with expected muscle soreness and no issues. He demonstrated improvements in endurance with core stabilization strengthening with decrease in pain. The patient will continue to benefit from ongoing skilled physical therapy to progress toward set goals. PLAN FOR NEXT VISIT: Asses response to isomtric abs.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 Estimated Average Glucose mg/dL 131 PSA <2.60 ng/mL 0.65 EKG NSR 1 degree AVB, incomplete RBBB. Assessment and Plan 1. Type 2 diabetes mellitus with stage 2 chronic kidney disease, without long- term current use of insulin ([facility]) - ICD9: 250.40, 585.2, ICD10: E11.22, N18.2 (primary diagnosis) Controlled. - Continue current medications - COMP METABOLIC PANEL - LIPID PANEL BASIC - ALBUMIN/CREAT RATIO RND UR - HGB A1C 2. Primary hypertension - ICD9: 401.9, ICD10: I10 - fair control - Continue current medication(s) - Reviewed risks of HTN and principles of treatment - Goal of BP <130/80 3. Coronary artery disease involving tazlina coronary artery of tazlina heart without angina pectoris- ICD9: 414.01, ICD10: I25.10 - ECG COMPLETE - CONSULT TO CARDIOLOGY Martir Muller MD documented in this encounterR[facility]10-13-[facility]21 History of Past illness Narrative* Problem Noted Date Resolved Date Abnormal urinary stream 04/13/2021 10/15/19 22 Obesity (BMI 30.0-34.9) 02/09/2017 08/07/19 20 Kidney insufficiency 02/07/2017 04/30/2018 Impaired fasting glucose 02/07/2017 022 STEMI (ST elevation myocardial infarction) 02/1406/28/2015 Tobacco use disorder 09/30/2007 06/08/2011 Overview: Quit about age 45: used a pipe-he did not inhale it Obesity, unspecified 09/30/2007 02/09/2017 Unspecified essential hypertension 09/30/2007 11/06/2012 Cardiac dysrhythmia, unspecified 09/30/2007 11/06/2012 documented as of this encounter (statuses as of 10/19/2021) [facility] of Past illness Narrative* Problem Noted Date Resolved Date Abnormal urinary stream 04/13/2021 10/15/19 22 Obesity (BMI 30.0-34.9) 02/09/2017 08/07/19 20 Kidney insufficiency 02/07/2017 04/30/2018 Impaired fasting glucose 02/07/2017 022 Vasculogenic erectile dysfunction 07/04/2016 04/20/2022 STEMI (ST elevation myocardial infarction) 02/1406/28/2015 Tobacco use disorder 09/30/2007 06/08/2011 Overview: Quit about age 45: used a pipe-he did not inhale it Obesity, unspecified 09/30/2007 02/09/2017 Unspecified essential hypertension 09/30/2007 11/06/2012 Cardiac dysrhythmia, unspecified 09/30/2007 11/06/2012 documented as of this encounter (statuses as of 04/22/2022) [facility] of Past illness Narrative* Problem Noted Date Resolved Date Abnormal urinary stream 04/13/2021 10/15/19 22 Obesity (BMI 30.0-34.9) 02/09/2017 08/07/19 20 Kidney insufficiency 02/07/2017 04/30/2018 Impaired fasting glucose 02/07/2017 022 Vasculogenic erectile dysfunction 07/04/2016 04/20/2022 STEMI (ST elevation myocardial infarction) 02/1406/28/2015 Tobacco use disorder 09/30/2007 06/08/2011 Overview: Quit about age 45: used a pipe-he did not inhale it Obesity, unspecified 09/30/2007 02/09/2017 Unspecified essential hypertension 09/30/2007 11/06/2012 Cardiac dysrhythmia, unspecified 09/30/2007 11/06/2012 documented as of this encounter (statuses as of 06/13/2022) [facility] of Past illness Narrative* Problem Noted Date Resolved Date Abnormal urinary stream 04/13/2021 10/15/19 22 Obesity (BMI 30.0-34.9) 02/09/2017 08/07/19 20 Kidney insufficiency 02/07/2017 04/30/2018 Impaired fasting glucose 02/07/201710/14/ 022 Vasculogenic erectile dysfunction 07/04/2016 04/20/2022 STEMI (ST elevation myocardial infarction) 02/1406/28/2015 Tobacco use disorder 09/30/2007 06/08/2011 Overview: Quit about age 45: used a pipe-he did not inhale it Obesity, unspecified 09/30/2007 02/09/2017 Unspecified essential hypertension 09/30/2007 11/06/2012 Cardiac dysrhythmia, unspecified 09/30/2007 11/06/2012 documented as of this encounter (statuses as of 08/01/2022) [facility] of Past illness Narrative* Problem Noted Date Resolved Date Abnormal urinary stream 04/13/2021 10/15/19 22 Obesity (BMI 30.0-34.9) 02/09/2017 08/07/19 20 Kidney insufficiency 02/07/2017 04/30/2018 Impaired fasting glucose 02/07/201715/2 022 Vasculogenic erectile dysfunction 07/04/2016 04/20/2022 STEMI (ST elevation myocardial infarction) 02/1406/28/2015 Tobacco use disorder 09/30/2007 06/08/2011 Overview: Quit about age 45: used a pipe-he did not inhale it Obesity, unspecified 09/30/2007 02/09/2017 Unspecified essential hypertension 09/30/2007 11/06/2012 Cardiac dysrhythmia, unspecified 09/30/2007 11/06/2012 documented as of this encounter (statuses as of 10/25/2022) [facility] Past illness Narrative* Problem Noted Date Resolved Date Abnormal urinary stream 04/13/2021 10/15/19 22 Obesity (BMI 30.0-34.9) 02/09/2017 08/07/19 20 Kidney insufficiency 02/07/2017 04/30/2018 Impaired fasting glucose 02/07/2017 022 Vasculogenic erectile dysfunction 07/04/2016 04/20/2022 STEMI (ST elevation myocardial infarction) 02/1406/28/2015 Tobacco use disorder 09/30/2007 06/08/2011 Overview: Quit about age 45: used a pipe-he did not inhale it Obesity, unspecified 09/30/2007 02/09/2017 Unspecified essential hypertension 09/30/2007 11/06/2012 Cardiac dysrhythmia, unspecified 09/30/2007 11/06/2012 documented as of this encounter (statuses as of 11/07/2022) [facility] Past illness Narrative* Problem Noted Date Resolved Date Abnormal urinary stream 04/13/2021 10/15/19 22 Obesity (BMI 30.0-34.9) 02/09/2017 08/07/19 20 Kidney insufficiency 02/07/2017 04/30/2018 Impaired fasting glucose 02/07/2017 022 Vasculogenic erectile dysfunction 07/04/2016 04/20/2022 STEMI (ST elevation myocardial infarction) 02/1406/28/2015 Tobacco use disorder 09/30/2007 06/08/2011 Overview: Quit about age 45: used a pipe-he did not inhale it Obesity, unspecified 09/30/2007 02/09/2017 Unspecified essential hypertension 09/30/2007 11/06/2012 Cardiac dysrhythmia, unspecified 09/30/2007 11/06/2012 documented as of this encounter (statuses as of 11/07/2022) [facility] Narrative* Problem Noted Date Diagnosed Date Resolved Date Abnormal urinary stream 04/13/2021 04/10/2021 Obesity (BMI 30.0-34.9) 02/09/2017 02/0 12/2019 Kidney insufficiency 02/07/2017 018 Impaired fasting glucose 02/07/2017 Vasculogenic erectile dysfunction 07/04/2016 04/20/2022 STEMI (ST elevation myocardial infarction) 02/14/2013 06/28/2015 Tobacco use disorder 09/30/2007 011 Overview: Quit about age 45: used a pipe-he did not inhale it Obesity, unspecified 09/30/2007 017 Unspecified essential hypertension 09/30/2007 11/06/2012 Cardiac dysrhythmia, unspecified 09/30/2007 11/06/2012 documented as of this encounter (statuses as of 04/22/2023) [facility] illness Narrative* Problem Noted Date Diagnosed Date Resolved Date Abnormal urinary stream 04/13/202109/30 Obesity (BMI 30.0-34.9) 02/09/2017 02/0 12/2019 Kidney insufficiency 02/07/2017 018 Impaired fasting glucose 02/07/2017 Vasculogenic erectile dysfunction 07/04/2016 04/20/2022 STEMI (ST elevation myocardial infarction) 02/14/2013 06/28/2015 Tobacco use disorder 09/30/2007 011 Overview: Quit about age 45: used a pipe-he did not inhale it Obesity, unspecified 09/30/2007 017 Unspecified essential hypertension 09/30/2007 11/06/2012 Cardiac dysrhythmia, unspecified 09/30/2007 11/06/2012 documented as of this encounter (statuses as of 05/02/2023) [facility] illness Narrative* Problem Noted Date Diagnosed Date Resolved Date Abnormal urinary stream 04/13/202109/30 Obesity (BMI 30.0-34.9) 02/09/2017 02/0 12/2019 Kidney insufficiency 02/07/2017 018 Impaired fasting glucose 02/07/2017 Vasculogenic erectile dysfunction 07/04/2016 04/20/2022 STEMI (ST elevation myocardial infarction) 02/14/2013 06/28/2015 Tobacco use disorder 09/30/2007 011 Overview: Quit about age 45: used a pipe-he did not inhale it Obesity, unspecified 09/30/2007 017 Unspecified essential hypertension 09/30/2007 11/06/2012 Cardiac dysrhythmia, unspecified 09/30/2007 11/06/2012 documented as of this encounter (statuses as of 05/02/2023) [facility] Narrative* Problem Noted Date Diagnosed Date Resolved Date Abnormal urinary stream 04/13/202109/30 Obesity (BMI 30.0-34.9) 02/09/201712/2019 Kidney insufficiency 02/07/2017 018 Impaired fasting glucose 02/07/2017 Vasculogenic erectile dysfunction 07/04/2016 04/20/2022 STEMI (ST elevation myocardial infarction) 02/14/2013 06/28/2015 Tobacco use disorder 09/30/2007 011 Overview: Quit about age 45: used a pipe-he did not inhale it Obesity, unspecified 09/30/2007 017 Unspecified essential hypertension 09/30/2007 11/06/2012 Cardiac dysrhythmia, unspecified 09/30/2007 11/06/2012 documented as of this encounter (statuses as of 05/10/2023) [facility] Narrative* Problem Noted Date Diagnosed Date Resolved Date Abnormal urinary stream 04/13/202109/30 Obesity (BMI 30.0-34.9) 02/09/201712/2019 Kidney insufficiency 02/07/2017 018 Impaired fasting glucose 02/07/2017 Vasculogenic erectile dysfunction 07/04/2016 04/20/2022 STEMI (ST elevation myocardial infarction) 02/14/2013 06/28/2015 Tobacco use disorder 09/30/2007 011 Overview: Quit about age 45: used a pipe-he did not inhale it Obesity, unspecified 09/30/2007 017 Unspecified essential hypertension 09/30/2007 11/06/2012 Cardiac dysrhythmia, unspecified 09/30/2007 11/06/2012 documented as of this encounter (statuses as of 05/23/2023) [facility]10-13[facility]2021 History of Past illness Narrative* Problem Noted Date Diagnosed Date Resolved Date Abnormal urinary stream 04/13/202109/30 Obesity (BMI 30.0-34.9) 02/09/2017 02/0 12/2019 Kidney insufficiency 02/07/2017 018 Impaired fasting glucose 02/07/2017 Vasculogenic erectile dysfunction 07/04/2016 04/20/2022 STEMI (ST elevation myocardial infarction) 02/14/2013 06/28/2015 Tobacco use disorder 09/30/2007 011 Overview: Quit about age 45: used a pipe-he did not inhale it Obesity, unspecified 09/30/2007 017 Unspecified essential hypertension 09/30/2007 11/06/2012 Cardiac dysrhythmia, unspecified 09/30/2007 11/06/2012 documented as of this encounter (statuses as of 06/08/2023) [facility] History of Past illness Narrative* Problem Noted Date Diagnosed Date Resolved Date Abnormal urinary stream 04/13/202109/30 Obesity (BMI 30.0-34.9) 02/09/2017 02/0 12/2019 Kidney insufficiency 02/07/2017 018 Impaired fasting glucose 02/07/2017 Vasculogenic erectile dysfunction 07/04/2016 04/20/2022 STEMI (ST elevation myocardial infarction) 02/14/2013 06/28/2015 Tobacco use disorder 09/30/2007 011 Overview: Quit about age 45: used a pipe-he did not inhale it Obesity, unspecified 09/30/2007 017 Unspecified essential hypertension 09/30/2007 11/06/2012 Cardiac dysrhythmia, unspecified 09/30/2007 11/06/2012 documented as of this encounter (statuses as of 06/08/2023) [facility] History of Past illness Narrative* Problem Noted Date Diagnosed Date Resolved Date Abnormal urinary stream 04/13/202109/30 Obesity (BMI 30.0-34.9) 02/09/201712/2019 Kidney insufficiency 02/07/2017 018 Impaired fasting glucose 02/07/2017 Vasculogenic erectile dysfunction 07/04/2016 04/20/2022 STEMI (ST elevation myocardial infarction) 02/14/2013 06/28/2015 Tobacco use disorder 09/30/2007 011 Overview: Quit about age 45: used a pipe-he did not inhale it Obesity, unspecified 09/30/2007 017 Unspecified essential hypertension 09/30/2007 11/06/2012 Cardiac dysrhythmia, unspecified 09/30/2007 11/06/2012 documented as of this encounter (statuses as of 06/15/2023) [facility] History of Past illness Narrative* Problem Noted Date Diagnosed Date Resolved Date Abnormal urinary stream 04/13/202109/30 Obesity (BMI 30.0-34.9) 02/09/2017 020 12/2019 Kidney insufficiency 02/07/2017 018 Impaired fasting glucose 02/07/2017 Vasculogenic erectile dysfunction 07/04/2016 04/20/2022 STEMI (ST elevation myocardial infarction) 02/14/2013 06/28/2015 Tobacco use disorder 09/30/2007 011 Overview: Quit about age 45: used a pipe-he did not inhale it Obesity, unspecified 09/30/2007 017 Unspecified essential hypertension 09/30/2007 11/06/2012 Cardiac dysrhythmia, unspecified 09/30/2007 11/06/2012 documented as of this encounter (statuses as of 08/03/2023) [facility] History of Past illness Narrative* Problem Noted Date Diagnosed Date Resolved Date Abnormal urinary stream 04/13/202109/30 Obesity (BMI 30.0-34.9) 02/09/2017 020 12/2019 Kidney insufficiency 02/07/2017 018 Impaired fasting glucose 02/07/2017 Vasculogenic erectile dysfunction 07/04/2016 04/20/2022 STEMI (ST elevation myocardial infarction) 02/14/2013 06/28/2015 Tobacco use disorder 09/30/2007 011 Overview: Quit about age 45: used a pipe-he did not inhale it Obesity, unspecified 09/30/2007 017 Unspecified essential hypertension 09/30/2007 11/06/2012 Cardiac dysrhythmia, unspecified 09/30/2007 11/06/2012 documented as of this encounter (statuses as of 08/20/2023) [facility] History of Past illness Narrative* Problem Noted Date Diagnosed Date Resolved Date Abnormal urinary stream 04/13/202109/30 Obesity (BMI 30.0-34.9) 02/09/20170 12/2019 Kidney insufficiency 02/07/2017 018 Impaired fasting glucose 02/07/2017 Vasculogenic erectile dysfunction 07/04/2016 04/20/2022 STEMI (ST elevation myocardial infarction) 02/14/2013 06/28/2015 Tobacco use disorder 09/30/2007 011 Overview: Quit about age 45: used a pipe-he did not inhale it Obesity, unspecified 09/30/2007 017 Unspecified essential hypertension 09/30/2007 11/06/2012 Cardiac dysrhythmia, unspecified 09/30/2007 11/06/2012 documented as of this encounter (statuses as of 09/17/2023) [facility] History of Past illness Narrative* Problem Noted Date Diagnosed Date Resolved Date Abnormal urinary stream 04/13/202109/30 Obesity (BMI 30.0-34.9) 02/09/2017 02/0 12/2019 Kidney insufficiency 02/07/2017 018 Impaired fasting glucose 02/07/2017 Vasculogenic erectile dysfunction 07/04/2016 04/20/2022 STEMI (ST elevation myocardial infarction) 02/14/2013 06/28/2015 Tobacco use disorder 09/30/2007 011 Overview: Quit about age 45: used a pipe-he did not inhale it Obesity, unspecified 09/30/2007 017 Unspecified essential hypertension 09/30/2007 11/06/2012 Cardiac dysrhythmia, unspecified 09/30/2007 11/06/2012 documented as of this encounter (statuses as of 09/18/2023) [facility]2017 History of Past illness Narrative* Problem Noted Date Resolved Date Obesity (BMI 30.0-34.9) 02/09/2017 08/07/19 20 Kidney insufficiency 02/07/2017 04/30/2018 STEMI (ST elevation myocardial infarction) 02/1406/28/2015 Tobacco use disorder 09/30/2007 06/08/2011 Overview: Quit about age 45: used a pipe-he did not inhale it Obesity, unspecified 09/30/2007 02/09/2017 Unspecified essential hypertension 09/30/2007 11/06/2012 Cardiac dysrhythmia, unspecified 09/30/2007 11/06/2012 documented as of this encounter (statuses as of 09/30/2021) [facility] Evaluation note* Diagnosis Onset Date Resolution Status Essential hypertension chron ic H/O coronary artery bypass surgery February 18, 2013 chronic Hyperlipidemia [facility] Work Phone: [phone]) 960-799908-20-2013 Evaluation note* Diagnosis Onset Date Resolution Status Admit Date Essential hypertension chronic Oc tob2024 10:55am H/O coronary artery bypass surgery February 18, 2013 chronic April 21, 2025 10:55am Hyperlipidemia chronic April 212024 10:55am [facility] Work Phone: Evaluation + Plan note No data available for this section [facility] Evaluation note* Diagnosis Type 2 diabetes mellitus without complication, without long-term current use of insulin (HCC) [facility] Diagnosis Type 2 diabetes mellitus with stage 2 chronic kidney disease, without long-term current use of insulin (HCC)- Primary Primary hypertension Unspecified essential hypertension Coronary artery disease involving tazlina coronary artery of tazlina heart without angina pectoris [facility] Diagnosis Type 2 diabetes mellitus with stage 2 chronic kidney disease, without long-term current use of insulin (HCC)- Primary Encounter for immunization Need for other specified prophylactic vaccination against single bacterial disease Pure hypercholesterolemia Coronary artery disease involving tazlina coronary artery of tazlina heart without angina pectoris Primary hypertension Unspecified essential hypertension Obesity, Class II, BMI 35-39.9 Obesity, unspecified [facility] Type 2 diabetes mellitus without complication, without long-term current use of insulin ([facility]) [facility] Diagnosis Retinal hemorrhage, left eye- Primary Retinal hemorrhage Hypertensive retinopathy of left eye Hypertensive retinopathy Type 2 diabetes mellitus without retinopathy (HCC) Type II or unspecified type diabetes mellitus without mention of complication, not stated as uncontrolled Combined forms of age-related cataract of both eyes Other and combined forms of senile cataract Regular astigmatism of both eyes Regular astigmatism Presbyopia [facility] Diagnosis Primary hypertension- Primary Unspecified essential hypertension [facility] Diagnosis Need for influenza vaccination- Primary Need for prophylactic vaccination and inoculation against influenza Pure hypercholesterolemia Coronary artery disease involving tazlina coronary artery of tazlina heart without angina pectoris Primary hypertension Unspecified essential hypertension Stiff neck Torticollis, unspecified Spasm of muscle of lower back Abnormal urinary stream Other abnormality of urination Type 2 diabetes mellitus with stage 2 chronic kidney disease, without long-term current use of insulin ([facility]) [facility] Diagnosis Hidden penis- Primary Abnormal urinary stream Other abnormality of urination [facility] Diagnosis Spasm of muscle of lower back- Primary Stiff neck Torticollis, unspecified [facility] Diagnosis Spasm of muscle of lower back- Primary Stiff neck Torticollis, unspecified [facility] Diagnosis Spasm of muscle of lower back- Primary Stiff neck Torticollis, unspecified [facility] Diagnosis Type 2 diabetes mellitus without retinopathy (HCC)- Primary Type II or unspecified type diabetes mellitus without mention of complication, not stated as uncontrolled Hypertensive retinopathy of both eyes Hypertensive retinopathy Combined forms of age-related cataract of both eyes Other and combined forms of senile cataract Regular astigmatism of both eyes Regular astigmatism Presbyopia [facility] Diagnosis Spasm of muscle of lower back- Primary Stiff neck Torticollis, unspecified [facility] Diagnosis Type 2 diabetes mellitus without complication, without long-term current use of insulin ([facility]) [facility] Diagnosis Type 2 diabetes mellitus with stage 2 chronic kidney disease, without long-term current use of insulin (HCC) (HCC)- Primary Primary hypertension Unspecified essential hypertension Pure hypercholesterolemia Coronary artery disease involving tazl[place] coronary artery of tazlina heart without angina pectoris [facility] Diagnosis Posterior vitreous detachment of left eye- Primary Vitreous degeneration Type 2 diabetes mellitus without retinopathy (HCC) Type II or unspecified type diabetes mellitus without mention of complication, not stated as uncontrolled Hypertensive retinopathy of both eyes Hypertensive retinopathy Combined forms of age-related cataract of both eyes Other and combined forms of senile cataract Regular astigmatism of both eyes Regular astigmatism Presbyopia [facility] Diagnosis Medicare annual wellness visit, subsequent- Primary Routine general medical examination at a health care facility Type 2 diabetes mellitus with stage 2 chronic kidney disease, without long-term current use of insulin (HCC) (HCC) Primary hypertension Unspecified essential hypertension Pure hypercholesterolemia Obesity, Class II, BMI 35-39.9 Obesity, unspecified Coronary artery disease involving tazlina coronary artery of tazlina heart without angina pectoris [facility] Diagnosis Posterior vitreous detachment of left eye- Primary Vitreous degeneration Type 2 diabetes mellitus without retinopathy (HCC) Type II or unspecified type diabetes mellitus without mention of complication, not stated as uncontrolled Hypertensive retinopathy of both eyes Hypertensive retinopathy Combined forms of age-related cataract of both eyes Other and combined forms of senile cataract Regular astigmatism of both eyes Regular astigmatism Presbyopia [facility] Diagnosis Primary hypertension Unspecified essential hypertension Pure hypercholesterolemia Coronary artery disease involving tazlina coronary artery of tazlina heart without angina pectoris [facility]* Diagnosis Type 2 diabetes mellitus without retinopathy (HCC)- Primary Type II or unspecified type diabetes mellitus without mention of complication, not stated as uncontrolled Posterior vitreous detachment of left eye Vitreous degeneration Combined forms of age-related cataract of both eyes Other and combined forms of senile cataract Regular astigmatism of both eyes Regular astigmatism Presbyopia Meibomian gland dysfunction (MGD) of upper and lower lids of both eyes [facility]* Diagnosis Pure hypercholesterolemia- Primary Primary hypertension Unspecified essential hypertension Coronary artery disease involving tazlina coronary artery of tazlina heart without angina pectoris Obesity, Class II, BMI 35-39.9 Obesity, unspecified Type 2 diabetes mellitus with stage 2 chronic kidney disease, without long-term current use of insulin (HCC) (HCC) Elevated liver enzymes Other nonspecific abnormal serum enzyme levels [facility]* Diagnosis Elevated liver enzymes Other nonspecific abnormal serum enzyme levels documented in this encounter [facility] note* Diagnosis Medicare annual wellness visit, subsequent- Primary Routine general medical examination at a health care facility Screening for depression Encounter for screening examination for other mental health and behavioral disorders Obesity, Class III, BMI >= 40 Morbid obesity Elevated liver enzymes Other nonspecific abnormal serum enzyme levels S/P CABG x 4 Postsurgical aortocoronary bypass status Type 2 diabetes mellitus with stage 2 chronic kidney disease, without long-term current use of insulin (HCC) Coronary artery disease involving tazlina coronary artery of tazl[place] heart without angina pectoris Pure hypercholesterolemia documented [facility]* Diagnosis Type 2 diabetes mellitus with stage 2 chronic kidney disease, without long-term current use of insulin (HCC) [facility] Author Cedrick Mcduffie [facility] Note Date/Time April 21, 2025 1 2:19pm [facility] [address] [place] [address] OFFICE VISIT Date of Service: 04/21/25 MR#: [id number] Acct: [id number] Name: SHAHBAZ MITTAL Rep #: [id number] : 1955 Provider: Dr. Aguila Mcduffie MD Age/Sex: 69/M Location: [facility] Status: Signed HPI HPI History of Present Illness Details: 69-year-old man with a history of premature coronary artery disease who had a non-ST elevation myocardial infarction in January 2013. He underwent a left heart catheterization and subsequently underwent coronary bypass surgery with a left internal mammary artery to the left anterior descending artery, saphenous vein graft to first diagonal branch, saphenous vein graft to second diagonal branch, and a radial artery to the circumflex artery. He also has a history of hypertension, hyperlipidemia, and borderline diabetes mellitus. He denies chest, arm, jaw, or neck discomfort. He denies palpitations. He denies bilateral lower extremity edema. He denies claudication. He denies shortness of breath with activity, shortness of breath at rest, orthopnea, or PND. He denies chronic cough. He denies significant, sudden weight gain. He states lightheadedness when standing too quickly or bending over. He denies dizziness, near-syncope, or syncope. He denies blood in urine, blood in stool, or epistaxis. He denies fever with chills. He denies myalgia. He denies fatigue. His exercise level has remained stable. 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 Accompanied by: Self Is patient in pain?: No Allergies No Known Allergies Allergy (Verified 04/21/25 10:58) Medications ?Medication ?Instructions ?Recorded ?Confirmed ?Type amlodipine 2.5 mg tablet 2.5 mg PO DAILY 12/19/21 History aspirin 81 mg tablet,delayed 81 mg PO DAILY 12/19/21 1 History release (Adult Aspirin Regimen) atorvastatin 40 mg tablet 40 mg PO DAILY 12/19/2104/02 History lisinopril 40 mg tablet 40 mg PO DAILY 12/19/2104/02 History metoprolol tartrate 25 mg tablet 25 mg PO BID 12/19/21 04/21/25 History omega-3 fatty acids 500 mg capsule 500 mg PO DAILY 04/21/25 History Ejection fraction %: 55 Have you fallen in the past year?: No PFSH Medical History Obesity Diabetes Former smoker Hyperlipidemia Essential hypertension 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 Surgical History History of left heart catheterization (02/14/13) H/O coronary artery bypass surgery (02/18/13) Family History Mother Thyroid disorder Father Heart disease Social History Smoking Status: Former smoker Tobacco: How many years used: 25 how long ago did patient quit smokin years ago alcohol intake: current alcohol intake frequency: a few times a month substance use type: does not use caffeine: Yes Type: carbonated beverages Number of servings: 2 and coffee Number of servings: 1 ROS Const Const: Positive for fatigue; Negative for weakness, daytime sleepiness or difficulty sleeping ENT ENT: Negative for dizziness or Nosebleed/epistaxis Cardio Chest Pain: No Palpitations: No Edema: None Resp Respiratory: Positive for SOB with activity; Negative for SOB at rest, SOB orthopnea\\SOB lying down or Cough GI GI: Negative nausea, vomiting or heartburn Neuro Neuro: Negative for dizziness, lightheadedness, near syncope or weakness Endo Endo: Positive for fatigue Cardiology Exam Const Appearance: cooperative, healthy appearing, comfortable and no acute distress Nutritional Appearance: well nourished and obese Orientation: alert, awake and oriented x3 Head Head: normal to inspection Ears: hearing grossly normal bilaterally Nose: external nose normal Face and Sinus: face symmetric Mouth: moist mucous membranes Eyes General: appearance normal, both eyes and all related structures Eyelids: eyelids normal EOM: EOM intact bilaterally Neck Neck: normal visual inspection and no JVD Carotids: normal carotid upstroke Chest Chest inspection: normal inspection of the chest, symmetric chest movement and normal respiratory effort; Negative cough Auscultation: Bilateral: Clear to Auscultation Cardio Rate: regular rate Rhythm: regular rhythm Heart sounds: S1 normal and S2 normal; Negative rub, gallop or murmur GI GI: normal to inspection and obese Neuro General: patient alert, patient awake, patient oriented x3 and CN's II-XI intactbilaterally Skin Skin: no rashes or lesions noted Extremities Pulses: Normal: Right Posterior Tibial Pulse, Left Posterior Tibial Pulse and Right Radial Pulse and Absent: Left Radial Pulse (CABG) Lower Extremity Edema: None: Bilateral Psych Psychological: normal affect Supplemental Info Supplemental Information Echocardiogram 01/18/2022 Interpretation Summary Normal LV size. Left ventricular systolic function is normal. The estimated ejection fraction is 55 %. Stage 1 diastolic dysfunction. Contrast injection was performed. Stress test from 01/18/2022: Conclusion: Normal exercise myocardial perfusion stress test at a moderate workload. Preserved ejection fraction. Diagnostics: Electrocardiogram Echocardiogram Stress Test Stress Test Nuclear Medicine Past Visits: Cardiology Visit Today Assessment and Plan Assessment and Plan (1) H/O coronary artery bypass surgery: Status: Chronic Comment: CABG X 4: WERNER-LAD, SVG-D1,SVG-D2,Radial Artery-LCx 02/18/2013 Plan: Twelve-lead ECG on 12/18/2022 shows sinus rhythm at a rate of 60 bpm, VA [id number], QTc 410, and QRS 108. There are no acute ST or T wave changes. Stress testin December 2021 was negative for ischemia at a moderate workload. Echocardiogram in December 2021 showed an ejection fraction of 55%. This appears stable. We will continue to monitor and not make any medication regimen changes. We will continue to promote risk factor and lifestyle modification. (2) Essential hypertension: Status: Chronic Plan: Patient's blood pressure is well-controlled at home with systolic 120s-130. We will continue to monitor. We will not make any medication regimen changes. Will advance amlodipine if blood pressure is consistently elevated. Lifestyle modification, most notably weight loss encouraged. (3) Hyperlipidemia: Status: Chronic Qualifiers: Hyperlipidemia type: mixed hyperlipidemia Qualified Code(s): E78.2 - Mixed hyperlipidemia Plan: Lipid panel with primary care provider on summer 2024 demonstrated total cholesterol 127 HDL 33 LDL 71. No other major changes will be made. To remain on the atorvastatin 40 mg a day. Orders: Orders Nuclear Stress Test - Treadmil Today Z95.1 - Presence of aortocoronary bypass graft Echo Complete Today I10 - Essential (primary) hypertension Plan Details Additional Comments: Thank you for allowing us to participate in the patients plan of care, if you have any questions please do not hesitate to call. Plan was reviewed with patient/family member along with red flag symptoms. Understanding was acknowledged. Questions were answered to apparent satisfaction. This note was generated using a voice recognition system and there may be incorrect words, spelling or punctuation that were not noted when reviewing the office note prior to saving. Portions of this documentation were copied and pasted from previous office visitnotes to provide a cohesive continuity of the history. The note has been reviewed, edited, and updated, as necessary. Follow Up: 18 Months (jhr) Coding Level of Care Code Off vis,est,level 4 Diagnoses H/O coronary artery bypass surgery Z95.1 Essential hypertension I10 Mixed hyperlipidemia E78.2 Hyperlipidemia type: mixed hyperlipidemia Coding Level of Care Code Off vis,est,level 4 Diagnoses H/O coronary artery bypass surgery Z95.1 Essential hypertension I10 Mixed hyperlipidemia E78.2 Hyperlipidemia type: mixed hyperlipidemia Clinical Quality Measures Falls Risk Screening/Assistive Devices Have you fallen in the past year?: No Cardiac Ejection fraction %: 55 04/21/25 1126 <Electronically signed by Cedrick Currie> Date _ Cedrick Mcduffie MD Cosigner Signature: Date (if applicable) CC: Dr. Martir Muller MD ~ [place] [facility] Work [facility]: [facility] Diagnostic Procedure Only (Routine) - Authorized Specialty Diagnoses / Procedures Referred By Contac t Referred To Contact US IMAGING Diagnoses Elevated liver enzymes Procedures US ABD RIGHT UPPER QUADRANT US ABDOMINAL REAL TIME W/IMAGE LIMITED Martir Muller MD [address] [place] [address] [facility] [address] Referral ID Status Reason Start Date Expiration Date Visits Requested Visits Authorized [id number] Authorized Auto-Generat ed Referral 07/24/2024 08/23/2025 1 [facility] [facility] for referral (narrative)No reason for referral information availableEl Paso Tune[facility] Services Work Phone: Summary Purpose Family History Relationship Condition Age at Onset Recorded Date/T sanjeev mother Disorder of thyroid Unknown father Cardiac disease Unknown Advance Directives Documents on File Type Date Recorded Patient Second Baller Expl anation Advance Directive(s) 05/05/2019 9:05 AM Advance Directive(s) 04/21/2019 9:37 AM Documents on File Type Date Recorded Patient Second Baller Expl anation Advance Directive(s) 05/05/2019 9:05 AM Advance Directive(s) 04/21/2019 9:37 AM Documents on File Type Date Recorded Patient Second Baller Expl anation Advance Directive(s) 07/24/2024 9:49 AM Reason for Referral Specialty Diagnoses / Procedures Referred By Justine t Referred To Contact Cardiology Diagnoses Coronary artery disease involving tazlina coronary artery of tazlina heart without angina pectoris Procedures CONSULT TO CARDIOLOGY Martir Muller MD [address] [place] [address] Referral ID Status Reason Start Date Expiration Date Visits Requested Visits Authorized [id number] Ref Not Required PCP Requested Referral 10/14/2021 10/14/2022 1 1 Specialty Diagnoses / Procedures Referred By Contac t Referred [facility] Diagnoses Coronary artery disease involving tazlina coronary artery of tazl[place] heart without angina pectoris Procedures ECG COMPLETE ECG ROUTINE ECG W/LEAST 12 LDS W/I&R Martir Muller MD [address] [place] [address] [facility] [address] [place] [address] Referral ID Status Reason Start Date Expiration Date Visits Re quested Visits Authorized [id number] Closed 10/14/2021 07/01/2022 1 1 Specialty Diagnoses / Procedures Referred By Contac t Referred To Contact Urology Diagnoses Abnormal urinary stream Procedures CONSULT TO UROLOGY OFFICE/OUTPATIENT [facility] MDM 60-74 MINUTES Martir Muller MD [address] [place] [address] Referral ID Status Reason Start Date Expiration Date Visits Requested Visits Authorized [id number] Pending Review PCP Requested Referral 3 04/17/2024 1 1 Specialty Diagnoses / Procedures Referred By Contac t Referred To Contact [facility] Diagnoses Spasm of muscle of lower back Stiff neck Procedures CONSULT TO PHYSICAL THERAPY PHYSICAL THERAPY EVALUATION [facility] COMPLEX 45 MINS Martir Muller MD [address] [place] [address] [facility] [address] [place] [address] Referral ID Status Reason Start Date Expiration Date Visits Requested Visits Authorized [id number] Pending Review Auto-Generat ed Referral 05/10/2023 05/09/2024 1 1 Chief Complaint and Reason for Visit Chief Complaint Amb Documentation [place], CABG (PREV [facility] CARD.) S/P CABG Reason for Visit Essential hypertensi on H/O coronary artery bypass surgery Hyperlipidemia Chief Complaint Admit Date 1 Y FU April 21, 2025 1 0:55am Reason for Visit Admit Date Essential hypertension April 21 10:55am H/O coronary artery bypass surgery Octob er 2024 10:55am Hyperlipidemia April 21, 2025 1 0:55am Medications Administered Section Active Administered Medications - up to 3 most recent administrations Medication Order MAR Action Action Date Dose Rate Site PHENYLephrine 2.5 % 1 Drop (AK-DILATE, JIM-SYNEPHRINE) 1 Drop, BOTH EYES, DIRECTED, Starting on Sun10/24/22 at 1330, Until Sun10/25/22 at 0129, Administer for dilation PROTECT FROM LIGHT Given 10/24/2022 1:28 PM EDT 1 Drop proparacaine 0.5 % 1 Drop (ALCAINE) 1 Drop, BOTH EYES, DIRECTED, Starting on Sun10/24/22 at 1330, Until Sun10/25/22 at 0129, Administer for pneumo tonometry, tonopen tonometry, or pachymetry. In the event of a proparacaine shortage, administer tetracaine 0.5% ophthalmic drops 1 drop in the left eye as directed for pneumo tonometry, tonopen tonometry, or pachymetry Given 10/24/2022 1:28 PM EDT 1 Drop tropicamide 1 % 1 Drop (MYDRIACYL) 1 Drop, BOTH EYES, DIRECTED, Starting on Sun10/24/22 at 1330, Until Sun10/25/22 at 0129, Administer for dilation Given 10/24/2022 1:28 PM EDT 1 Drop Active Administered Medications - up to 3 most recent administrations Medication Order MAR Action Action Date Dose Rate Site PHENYLephrine 2.5 % 1 Drop (AK-DILATE, JIM-SYNEPHRINE) 1 Drop, BOTH EYES, DIRECTED, Starting on Sun06/08/23 at 1400, Until 06/09/23 at 0159, Administer for dilation PROTECT FROM LIGHT Given 06/08/2023 1:56 PM EST 1 Drop proparacaine 0.5 % 1 Drop (ALCAINE) 1 Drop, BOTH EYES, DIRECTED, Starting on Sun06/08/23 at 1400, Until 06/09/23 at 0159, Administer for pneumo tonometry, tonopen tonometry, or pachymetry. In the event of a proparacaine shortage, administer tetracaine 0.5% ophthalmic drops 1 drop in the left eye as directed for pneumo tonometry, tonopen tonometry, or pachymetry Given 06/08/2023 1:56 PM EST 1 Drop tropicamide 1 % 1 Drop (MYDRIACYL) 1 Drop, BOTH EYES, DIRECTED, Starting on Sun06/08/23 at 1400, Until 06/09/23 at 0159, Administer for dilation Given 06/08/2023 1:56 PM EST 1 Drop Additional Source Comments (unrecognized sect ion and content) No Status Records FoundNo Status Records FoundNo Status Records FoundNo Status Records FoundNo Status Records Found INFORMATION SOURCE (unrecogn ized section and content) DATE CREATED AUTHOR 12/19/2017 [facility] DATE CREATED AUTHOR AUTHOR'S ORGANIZ ATION 10/08/2022 [facility] ([place]) DATE CREATED AUTHOR AUTHOR'S ORGANIZ ATION 05/03/2023 [facility] DATE CREATED AUTHOR AUTHOR'S ORGANIZ ATION 01/30/2025 [facility] DATE CREATED AUTHOR AUTHOR'S ORGANIZ ATION 05/07/2025 [facility] Source Comments (unrecognize d section and content) In the event this informatio n is protected by the Federal Confidentiality of Alcohol and Drug Abuse Patient Records regulations: The Federal rules restrict any use of the information to criminally investigate or prosecute any alcohol or drug abuse patient.[facility] the event this information is protected by the Federal Confidentiality of Alcohol and Drug Abuse Patient Records regulations: The Federal rules restrict any use of the information to criminally investigate or prosecute any alcohol or drug abuse patient.[facility] the event this information is protected by the Federal Confidentiality of Alcohol and Drug Abuse Patient Records regulations: The Federal rules restrict any use of the information to criminally investigate or prosecute any alcohol or drug abuse patient.[facility] the event this information is protected by the Federal Confidentiality of Alcohol and Drug Abuse Patient Records regulations: The Federal rules restrict any use of the information to criminally investigate or prosecute any alcohol or drug abuse patient.[facility] the event this information is protected by the Federal Confidentiality of Alcohol and Drug Abuse Patient Records regulations: The Federal rules restrict any use of the information to criminally investigate or prosecute any alcohol or drug abuse patient.[facility] the event this information is protected by the Federal Confidentiality of Alcohol and Drug Abuse Patient Records regulations: The Federal rules restrict any use of the information to criminally investigate or prosecute any alcohol or drug abuse patient.[facility] the event this information is protected by the Federal Confidentiality of Alcohol and Drug Abuse Patient Records regulations: The Federal rules restrict any use of the information to criminally investigate or prosecute any alcohol or drug abuse patient.[facility] the event this information is protected by the Federal Confidentiality of Alcohol and Drug Abuse Patient Records regulations: The Federal rules restrict any use of the information to criminally investigate or prosecute any alcohol or drug abuse patient.[facility] the event this information is protected by the Federal Confidentiality of Alcohol and Drug Abuse Patient Records regulations: The Federal rules restrict any use of the information to criminally investigate or prosecute any alcohol or drug abuse patient.[facility] the event this information is protected by the Federal Confidentiality of Alcohol and Drug Abuse Patient Records regulations: The Federal rules restrict any use of the information to criminally investigate or prosecute any alcohol or drug abuse patient.[facility] the event this information is protected by the Federal Confidentiality of Alcohol and Drug Abuse Patient Records regulations: The Federal rules restrict any use of the information to criminally investigate or prosecute any alcohol or drug abuse patient.[facility] the event this information is protected by the Federal Confidentiality of Alcohol and Drug Abuse Patient Records regulations: The Federal rules restrict any use of the information to criminally investigate or prosecute any alcohol or drug abuse patient.[facility] the event this information is protected by the Federal Confidentiality of Alcohol and Drug Abuse Patient Records regulations: The Federal rules restrict any use of the information to criminally investigate or prosecute any alcohol or drug abuse patient.[facility] the event this information is protected by the Federal Confidentiality of Alcohol and Drug Abuse Patient Records regulations: The Federal rules restrict any use of the information to criminally investigate or prosecute any alcohol or drug abuse patient.[facility] the event this information is protected by the Federal Confidentiality of Alcohol and Drug Abuse Patient Records regulations: The Federal rules restrict any use of the information to criminally investigate or prosecute any alcohol or drug abuse patient.[facility] the event this information is protected by the Federal Confidentiality of Alcohol and Drug Abuse Patient Records regulations: The Federal rules restrict any use of the information to criminally investigate or prosecute any alcohol or drug abuse patient.[facility]In the event this information is protected by the Federal Confidentiality of Alcohol and Drug Abuse Patient Records regulations: The Federal rules restrict any use of the information to criminally investigate or prosecute any alcohol or drug abuse patient.[facility] the event this information is protected by the Federal Confidentiality of Alcohol and Drug Abuse Patient Records regulations: The Federal rules restrict any use of the information to criminally investigate or prosecute any alcohol or drug abuse patient.[facility] the event this information is protected by the Federal Confidentiality of Alcohol and Drug Abuse Patient Records regulations: The Federal rules restrict any use of the information to criminally investigate or prosecute any alcohol or drug abuse patient.[facility] HospitalIn the event this information is protected by the Federal Confidentiality of Alcohol and Drug Abuse Patient Records regulations: The Federal rules restrict any use of the information to criminally investigate or prosecute any alcohol or drug abuse patient.[facility] the event this information is protected by the Federal Confidentiality of Alcohol and Drug Abuse Patient Records regulations: The Federal rules restrict any use of the information to criminally investigate or prosecute any alcohol or drug abuse patient.[facility] HospitalIn the event this information is protected by the Federal Confidentiality of Alcohol and Drug Abuse Patient Records regulations: The Federal rules restrict any use of the information to criminally investigate or prosecute any alcohol or drug abuse patient.[facility] HospitalIn the event this information is protected by the Federal Confidentiality of Alcohol and Drug Abuse Patient Records regulations: The Federal rules restrict any use of the information to criminally investigate or prosecute any alcohol or drug abuse patient.[facility] Hospital[facility] the event this information is protected by the Federal Confidentiality of Alcohol and Drug Abuse Patient Records regulations: The Federal rules restrict any use of the information to criminally investigate or prosecute any alcohol or drug abuse patient.[facility]In the event this information is protected by the Federal Confidentiality of Alcohol and Drug Abuse Patient Records regulations: The Federal rules restrict any use of the information to criminally investigate or prosecute any alcohol or drug abuse patient.[facility]In the event this information is protected by the Federal Confidentiality of Alcohol and Drug Abuse Patient Records regulations: The Federal rules restrict any use of the information to criminally investigate or prosecute any alcohol or drug abuse patient.[facility] the event this information is protected by the Federal Confidentiality of Alcohol and Drug Abuse Patient Records regulations: The Federal rules restrict any use of the information to criminally investigate or prosecute any alcohol or drug abuse patient.[facility]In the event this information is protected by the Federal Confidentiality of Alcohol and Drug Abuse Patient Records regulations: The Federal rules restrict any use of the information to criminally investigate or prosecute any alcohol or drug abuse patient.[facility] HospitalIn the event this information is protected by the Federal Confidentiality of Alcohol and Drug Abuse Patient Records regulations: The Federal rules restrict any use of the information to criminally investigate or prosecute any alcohol or drug abuse patient.[facility]In the event this information is protected by the Federal Confidentiality of Alcohol and Drug Abuse Patient Records regulations: The Federal rules restrict any use of the information to criminally investigate or prosecute any alcohol or drug abuse patient.[facility]In the event this information is protected by the Federal Confidentiality of Alcohol and Drug Abuse Patient Records regulations: The Federal rules restrict any use of the information to criminally investigate or prosecute any alcohol or drug abuse patient.[facility] HospitalIn the event this information is protected by the Federal Confidentiality of Alcohol and Drug Abuse Patient Records regulations: The Federal rules restrict any use of the information to criminally investigate or prosecute any alcohol or drug abuse patient.[facility] Care Teams (unrecognized sec tion and content) Bleach Chlorinator Relationship Specialty Start Date End Date Martir Muller MD [address] [place] [address] PCP - General Internal Medicine 06/08/11 Bleach Chlorinator Relationship Specialty Start Date End Date Martir Muller MD [address] [place] [address] PCP - General Internal Medicine 06/08/11 Bleach Chlorinator Relationship Specialty Start Date End Date Martir Muller MD [address] [place] [address] PCP - General Internal Medicine 06/08/11 Bleach Chlorinator Relationship Specialty Start Date End Date Martir Muller MD [address] [place] [address] PCP - General Internal Medicine 06/08/11 Bleach Chlorinator Relationship Specialty Start Date End Date Martir Muller MD [address] [place] [address] PCP - General Internal Medicine 06/08/11 Bleach Chlorinator Relationship Specialty Start Date End Date Martir Muller MD [address] [facility] [place] [address] PCP - General Internal Medicine 06/08/11 Bleach Chlorinator Relationship Specialty Start Date End Date Martir Muller MD [address] [facility] [place] [address] PCP - General Internal Medicine 06/08/11 Bleach Chlorinator Relationship Specialty Start Date End Date Martir Muller MD [address] [facility] [place] [address] PCP - General Internal Medicine 06/08/11 Bleach Chlorinator Relationship Specialty Start Date End Date Martir Muller MD [address] [facility] [place] [address] PCP - General Internal Medicine 06/08/11 Bleach Chlorinator Relationship Specialty Start Date End Date aMrtir Muller MD [address] [facility] [place] [address] PCP - General Internal Medicine 06/08/11 Bleach Chlorinator Relationship Specialty Start Date End Date Martir Muller MD [address] [facility] [place] [address] PCP - General Internal Medicine 06/08/11 Bleach Chlorinator Relationship Specialty Start Date End Date Martir Muller MD [address] [facility] [place] [address] PCP - General Internal Medicine 06/08/11 Bleach Chlorinator Relationship Specialty Start Date End Date Martir Muller MD [address] [facility] [place] [address] PCP - General Internal Medicine 06/08/11 Bleach Chlorinator Relationship Specialty Start Date End Date Martir Muller MD [address] [place] [address] PCP - General Internal Medicine 06/08/11 Bleach Chlorinator Relationship Specialty Start Date End Date Martir Muller MD [address] [facility] [place] [address] PCP - General Internal Medicine 06/08/11 Bleach Chlorinator Relationship Specialty Start Date End Date Martir Muller MD [address] [place] [place] [address] PCP - General Internal Medicine 06/08/11 Bleach Chlorinator Relationship Specialty Start Date End Date Martir Muller MD [address] [facility] [place] [address] PCP - General Internal Medicine 06/08/11 Bleach Chlorinator Relationship Specialty Start Date End Date Martir Muller MD [address] [place] [place] [address] PCP - General Internal Medicine 06/08/11 Bleach Chlorinator Relationship Specialty Start Date End Date Martir Muller MD [address] [facility] [place] [address] PCP - General Internal Medicine 06/08/11 Bleach Chlorinator Relationship Specialty Start Date End Date Martir Muller MD [address] [place] [place] [address] PCP - General Internal Medicine 06/08/11 Jennifer Bradford, SPE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 [address] [facility] [place] [address] Materials Intern Internal Medicine 06/09/24 Bleach Chlorinator Relationship Specialty Start Date End Date Martir Muller MD [address] [facility] [place] [address] PCP - General Internal Medicine 06/08/11 Jennifer Bradford, SPE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 [address] [facility] [place] [address] Materials Intern Internal Medicine 06/09/24 Bleach Chlorinator Relationship Specialty Start Date End Date Martir Muller MD [address] [facility] [place] [address] PCP - General Internal Medicine 06/08/11 Jennifer Bradford, SPE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 [address] [facility] [place] [address] Materials Intern Internal Medicine 06/09/24 Bleach Chlorinator Relationship Specialty Start Date End Date Martir Muller MD [address] [facility] [place] [address] PCP - General Internal Medicine 06/08/11 Jennifer Bradford, SPE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 [address] [facility] [place] [address] Materials Intern Internal Medicine 06/09/24 Bleach Chlorinator Relationship Specialty Start Date End Date Martir Muller MD [address] [facility] [place] [address] PCP - General Internal Medicine 06/08/11 Jennifer Bradford, SPE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 [address] [place] [address] Materials Intern Internal Medicine 06/09/24 Bleach Chlorinator Relationship Specialty Start Date End Date Martir Muller MD [address] [place], [place] [address] PCP - General Internal Medicine 06/08/11 Jennifer Bradford, SPE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 [address] [place], [place] [address] Materials Intern Internal Medicine 06/09/24 Team Status: Active Member Role/Relationship Status Dates Dr. Martir Muller MD Primary care physician Activ e Team Status: Inactive Member Role/Relationship Status Dates Dr. Martir Muller MD Primary care physician Activ e Start: April 21, 2025 End: April 21, 2025 Dr. Martir Muller MD Referring Provider Active Start: April 21, 2025 End: April 21, 2025 Dr. Cedrick Mcduffie MD Attending physician Active Start: April 21, 2025 End: April 21, 2025 Reason for Visit (unrecogniz ed section and content) Reason Comments Physical Therapy Specialty Diagnoses / Procedures Referred By Contac t Referred To Contact [facility] Diagnoses Spasm of muscle of lower back Stiff neck Procedures CONSULT TO PHYSICAL THERAPY PHYSICAL THERAPY EVALUATION [facility] COMPLEX 45 MINS Martir Muller MD [address] [place] [address] [facility] [address] [place] [address] Referral ID Status Reason Start Date Expiration Date Visits Requested Visits Authorized [id number] Authorized Auto-Generat ed Referral 07/02/2022 07/01/2023 99 99 Reason Comments F/U 6 months Specialty Diagnoses / Procedures Referred By Contac t Referred To Contact Internal Medicine / INTERNAL MEDICINE Diagnoses 6 MO FU Procedures 4C EST Self Martir Muller MD [address] [place] [address] Referral ID Status Reason Start Date Expiration Date V isits Requested Visits Authorized [id number] Closed Financial Clearance Required - OON Payor Patient Cleared INN/SMCP Payor Auth Obtained 10/14/2021 07/01/2022 1 1 Reason Comments F/U 6 months Reason Onset Date Comments Refill Request 06/13/2022 Reason Comments Refill Request Reason Comments Diabetic Retinopathy Evaluation Specialty Diagnoses / Procedures Referred By Justine tyler Referred To Contact Ophthalmology Diagnoses Type 2 diabetes mellitus with stage 2 chronic kidney disease, without long-term current use of insulin (HCC) Procedures CONSULT TO OPHTHALMOLOGY OFFICE/OUTPATIENT NEW HIGH MDM 60-[place] [address] [place] [address] Referral ID Status Reason Start Date Expiration Date Visits Requested Visits Authorized [id number] Pending Review PCP Requested Referral 10/17/2022 10/17/2023 1 1 Reason Comments Blood Pressure Check Reason Comments bp heavenly Reason Onset Date Comments F/U 6 months Immunizations 04/18/2023 Flu vaccination Reason Comments Follow Up Abnormal urinary stream Specialty Diagnoses / Procedures Referred By Justine tyler Referred To Contact UROLOGY Diagnoses Abnormal urinary stream [R39.198] Procedures Abnormal urinary stream [R39.198] Milton Andino PA-C [address] [place] [address] [facility] [address] [place] [address] Referral ID Status Reason Start Date Expiration Date Visits Requested Visits Authorized [id number] Pending Review OON/Self Pay Override 3 10/15/2023 1 1 Reason Comments Appointment Reason Comments Patient Update on back/neck pain an d medication Reason Comments PT Eval Reason Comments hypertensive retinopathy follow up Reason Comments PT Discharge Specialty Diagnoses / Procedures Referred By Justine tyler Referred To Contact Physical Therapy / PHYSICAL THERAPY Diagnoses M62.830 (ICD-10-CM) - Spasm of muscle of lower back M43.6 (ICD-10-CM) - Stiff neck Procedures EST RS PHYSICAL THERAPY Martir Muller MD [address] [place] [address] Neri Zazueta PT Referral ID Status Reason Start Date Expiration Date V isits Requested Visits Authorized [id number] Authorized 07/02/2023 07/01/2024 99 99 Reason Onset Date Comments Refill Request 08/17/2023 Reason Onset Date Comments Refill Request 09/17/2023 Reason Onset Date Comments Population Health Navigation Outreach 09/18/2023 [employer] care gaps Reason Comments Floaters Left Eye Reason Comments Medicare Wellness Exam Reason Comments Posterior Vitreous Detachment Follow Up Reason Onset Date Comments Refill Request 04/09/2024 Reason Comments Diabetic Eye Exam Type 2 NIDDM Reason Comments F/U 6 months Reason Comments Radiology US Specialty Diagnoses / Procedures Referred By Robac t Referred To Contact [facility] Diagnoses Elevated liver enzymes Procedures US ABD RIGHT UPPER QUADRANT US ABDOMINAL REAL TIME W/IMAGE LIMITED Martir Muller MD [address] [place] [address] Phone: tel: fax: [place] [phone] Referral ID Status Reason Start Date Expiration Date V isits Requested Visits Authorized [id number] Closed Auto-Generate d Referral 07/24/2024 08/23/2025 1 1 Reason Comments Medicare Wellness Exam F/U 6 months Reason Comments Med Change Request Goals (unrecognized section and content) Goals may be documented in a n alternate section No data available for this sectionGoals may be documented in an alternate section FOR RECORDS PERTAINING TO PATIENTS WHO ARE OR HAVE BEEN ENROLLED IN A CHEMICAL DEPENDENCY/SUBSTANCEABUSE PROGRAM, SOME INFORMATION MAY BE OMITTED. This clinical summary was aggregated from multiple sources. Caution should be exercised in using it in the provision of clinical care. This summary normalizes information from multiple sources, and as a consequence, information in this document may materially change the coding, format and clinical context of patient data. In addition, data may be omitted in some cases. CLINICAL DECISIONS SHOULD BE BASED ON THE PRIMARY CLINICAL RECORDS. [employer] provides no warranty or guarantee of the accuracy or completeness of information in this document.
--- NOTE | 2025-05-16 10:26 | STRESSREP_ITS ---
Stress Test Report Exercise myocardial perfusion stress test. 69-year-old man with a history of coronary disease. Stress protocol: Resting EKG demonstrates normal sinus rhythm with a rate of 81 bpm resting blood pressure is 146/80 mmHg. The patient exercised according to the regular Jaspreet protocol for a total duration of 4 minutes and 10 seconds attaining a maximum heart rate of 153 bpm which was 100% of maximum predicted heart rate; the maximum workload was 7 metabolic equivalents. At rest there were no ST or T wave changes noted to suggest ischemia and at peak exercise upsloping ST changes only were noted which did not meet the criteria for ischemia. No clinical angina was noted the test was terminated due to the target heart rate being achieved/f atigue. The peak blood pressure was 194/90 mmHg. Rate-pressure product was 29,200. Myocardial perfusion protocol. 14.8 mCi of technetium 99m sestamibi was injected at rest. The patient exercised according to regular Jaspreet protocol for total duration of 4 minutes and 10 seconds and at peak exercise 44.4 mCi of technetium 99m sestamibi was injected stress images were obtained stress and rest images were reconstructed in comparing the short axis vertical long and horizontal long axis. Gated images were also obtained. Perfusion SPECT analysis: Review of the stress images demonstrate normal uptake of tracer noted in all areas of the myocardium. The resting images similarly demonstrate normal uptake of tracer noted in all areas of the myocardium. No areas of reversibility are noted to suggest ischemia no previous infarct was noted. Gated SPECT analysis: The gated ejection fraction is 48%. Conclusion: Normal exercise myocardial perfusion stress test at a moderate workload.
== END | disposition home or self-care (01) ==
LOC: CVS 07:01
PROVIDERS: PCP Internal Medicine; Referring Provider Internal Medicine Cardiovascular Disease; Visit Provider Internal Medicine Cardiovascular Disease
DX: I25.10 Atherosclerotic heart disease of native coronary artery without angina pectoris (principal); Z95.1 Presence of aortocoronary bypass graft
CPT/HCPCS: 78452; 93017; A9500; A4216

== ENCOUNTER → 2025-05-14 | Outpatient (CLI) | payer MEDICARE, SELFPAY ==
--- NOTE | 2025-05-14 13:42 | ECHOCS_ITS ---
Reason For Study Reason For Study: CAD/ASHD Procedure This was a 2D Doppler, Color Flow transthoracic echocardiogram. The study was technically difficult. due to suboptimal acoustic imaging windows. Exam performed in department. Left Ventricle Normal LV size. Left ventricular systolic function is normal. The left ventricular ejection fraction is 55 %. Stage 1 diastolic dysfunction. No regional wall motion abnormalities noted. Right Ventricle Normal RV size. Normal systolic function. Atria Normal left atrium. Normal right atrium. Tricuspid Valve Normal tricuspid valve. Aortic Valve Mild (1+) eccentric aortic valve insufficiency. Pulmonic Valve The pulmonic valve is not well visualized. Great Vessels Normal aortic root. The pulmonary artery is normal size. Normal inferior vena cava. Pericardium/Pleural No pericardial effusion. Medication 22 gauge I.V. with prn adaptor inserted into left arm. Diluted definity 1.5ml given slow IV push to enhance endocardial definition. MMode/2D Measurements & Calculations LVIDd: 4.4 cm IVSd: 1.0 cm Ao root diam: 3.6 cm LVIDs: 3.3 cm LVPWd: 1.1 cm RVDd: 4.1 cm FS: 23.7 % LAV(MOD-bp): 59.8 ml LVAd ap4: 40.7 cm2 LVAd ap2: 28.8 cm2 LAV(MOD-bp) Indexed: 25.5 ml/m2 LVLd ap4: 9.4 cm LVLd ap2: 7.7 cm LAV(MOD-sp2): 43.4 ml EDV(MOD-sp4): 147.2 ml EDV(MOD-sp2): 87.6 ml LAV(MOD-sp4): 67.4 ml EDV(sp4-el): 149.9 ml EDV(sp2-el): 91.0 ml LVAs ap4: 25.8 cm2 LVAs ap2: 18.5 cm2 LVLs ap4: 8.1 cm LVLs ap2: 7.0 cm ESV(MOD-sp4): 67.8 ml ESV(MOD-sp2): 39.3 ml ESV(sp4-el): 69.6 ml ESV(sp2-el): 41.5 ml EF(MOD-sp4): 53.9 % EF(MOD-sp2): 55.2 % EF(sp4-el): 53.6 % SV(MOD-sp4): 79.3 ml SV(MOD-sp2): 48.3 ml SV(sp4-el): 80.3 ml SI(MOD-sp4): 33.8 ml/m2 SI(MOD-sp2): 20.6 ml/m2 LA A4 area: 23.1 cm2 LA dimension(2D): 3.8 cm RA A4 area: 16.9 cm2 TAPSE: 2.2 cm Time Measurements MV dec time: 0.18 sec Doppler Measurements & Calculations MV E max jose guadalupe: 61.1 cm/sec Lat Peak E' Jose Guadalupe: 11.6 cm/sec Med Peak E' Jose Guadalupe: 5.9 cm/sec MV A max jose guadalupe: 74.3 cm/sec E/E' lat: 5.3 E/E' med: 10.3 MV E/A: 0.82 Ao V2 max: 120.9 cm/sec AI max jose guadalupe: 410.1 cm/sec MV dec slope: 335.1 cm/sec2 Ao max P.8 mmHg AI max P.3 mmHg Ao V2 mean: 83.3 cm/sec Ao mean P.2 mmHg AI dec slope: 235.1 cm/sec2 Ao V2 VTI: 25.1 cm AI P1/2t: 510.9 msec AV (velocity ratio): 0.67 LV V1 max: 89.5 cm/sec LV V1 max P.2 mmHg LV V1 mean P.8 mmHg LV V1 mean: 63.7 cm/sec LV V1 VTI: 16.7 cm ECHO/Echo Complete W/ Contrast Interpretation Summary Normal LV size. Left ventricular systolic function is normal. The left ventricular ejection fraction is 55 %. Stage 1 diastolic dysfunction. Contrast injection was performed. Ordering Physician: Cedrick Mcduffie Referring Physician: Martir Bolanos Performed By: Alexia Sofia RDCS
--- OUTSIDE RECORDS SUMMARY | 2025-05-14 18:32 | XMS RPT_ITS | CCD ---
Author Organization [facility] Care Team Providers [employer] Salesperson Name Role Phone DWIGHT DU Unavailable Unavailable DWIGHT DU Unavailable Unavailable Martir Bolanos Unavailable Unavailable Martir Bolanos MD Primary Care Provider Dr. Martir Bolanos Primary Care Provider Shelia Cruz Attending Provider Unavailable Dr. Martir Bolanos Referring Provider Dr. Cedrick Mcduffie Attending Provider Martir Bolanos MD Primary Care Provider Martir Bolanos MD Primary Care Provider YOHANA DOE, DR BOB Primary Care Physician YOHANA DOE, DR BOB Primary Care Unavaila BARB Le DO Attending Unavailable Martir Bolanos MD Primary Care Provider Sanchez GPS NAVIGATION INSTALLER.IMPREGNATING MACHINE OPERATOR, Jennifer M Unavailable EULA COCHRAN Attending Unavailable MARTIR BOLANOS Primary Care Unavailable MARTIR BOLANOS Referring Unavailable MARTIR BOLANOS Primary Care Unavailable MARTIR BOLANOS Attending Unavailable MARTIR BOLANOS Primary Care Unavailable MARTIR BOLANOS Referring Unavailable MARTIR BOLANOS Primary Care Unavailable MARTIR BOLANOS Referring Unavailable MARTIR BOLANOS Primary Care Unavailable MARTIR BOLANOS Attending Unavailable MARTIR BOLANOS Primary Care Unavailable EULA COCHRAN Attending Unavailable MARTIR BOLANOS Primary Care Unavailable Dr. Martir Bolanos MD Primary Care Physician Dr. Martir Bolanos MD Referring Provider Froy DOE, Dr. Philip Attending Physician Martir Bolanos Primary Care Unavailable Martir Bolanos Referring Unavailable Roof HEAD STILL OPERATOR, Erasto Yang Attending Unavailable Cedrick Mcduffie Attending Unavailable Martir Bolanos Primary Care Unavailable Martir Bolanos Referring Unavailable Cedrick Mcduffie Referring Unavailable Martir Bolanos Primary Care Unavailable Cedrick Mcduffie Attending Unavailable Cedrick Mcduffie Referring Unavailable Martir Bolanos Primary Care Unavailable Cedrick Mcduffie Attending Unavailable Medications Current Medications Medication Drug Class(es) Dates [...] Blood-Glucose Meter monitoring kit (2 sources) Start: Blood-Glucose Meter monitoring kit Indications: Type 2 diabetes mellitus with stage 2 chronic kidney disease, without long-term current use of insulin ([facility]) Glucose Meter of Choice - Kit - Dx: Other DM Code E11.22; N18.2. Insulin: No. 1 each 01/28/2025 Active Start: 01-28-2025 End: 01-29-2025 Blood-Glucose Meter monitori ng kit Indications: Type 2 diabetes mellitus with stage 2 chronic kidney disease, without long-term current use of insulin ([facility]) Glucose Meter of Choice - Kit - [...] tablet Discontinued 10 mg PO daily 90 April 22, 2025 11:00pm May 07, 2025 [...] by marck th two times a day. [place]-3 Fatty Acids (1 source) Start: 12-19-2021 take 500 mg by mouth once daily [place]-3 Fatty Acids Active 500 MG PO DAILY December 19, 2021 12:00am [place]-3 Fatty Acids 500 mg capsule (1 source) [...] by marck th once daily. With food. [place]-3 Fatty Acids (FISH OIL) 500 mg cap (2 sources) Start: 07-17-2013 take 2 capsules by mouth once daily [place]-3 Fatty Acids (FISH OIL) 500 mg cap Take 2 capsules by mouth once daily. 0 07/17/2013 Active Comment on above: Take 2 capsules by m outh once daily. [place]-3 Fatty Acids 500 mg cap (19 sources) Start: 07-17-2013 End: 10-18-2023 take 2 capsules by mouth once daily [place]-3 Fatty Acids 500 mg cap Take 2 capsules by mouth once daily. 0 07/17/2013 10/18/2023 Discontinued Start: 07-17-2013 take 2 capsules by m outh once daily [place]-3 Fatty Acids 500 mg cap Take 2 [...] Coronary arteriosclerosis; Translations: [Atherosclerotic heart disease of unga coronary artery without angina pectoris] Onset: 07-17-2013 [...] [Obesity, Class III, BMI 40-49.9 (morbid obesity) (HCC)] Onset: 01-28-2025 01-28-2025 Chronic Retinal detachments; defects; [...] Obesity, Class III, BMI 40-49.9 (morbid obesity) (HCC); Translations: [Obesity, Class III, BMI 40-49.9 (morbid obesity) (HCC)] Onset: 01-28-2025 Past or Other Problems Problem [...] Facility Cardiology Visit Reporton Cardiology Visit Report [facility] [address] [place] [address] OFFICE VISIT Date of Service: 04/21/25 MR#: [id number] Acct: [id number] Name: SHAHBAZ MITTAL Rep #: [id number] : 1955 Provider: Dr. Cedrick Mcduffie MD Age/Sex: 69/M Location: [facility] 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 Normal [facility] CNOVon 01-28-2025 CNOV Office Visit (INTMWS ) ----- SHAHBAZ MITTAL ([id number]) 1955 M Date Time Provider Department 01/28/25 10:20 AM MARTIR BOLANOS INTMWS During your visit today, we recorded the following information about you: Pulse Blood pressure Weight Height 70/minute 124/84 121.7 kg 1.721 m Martir Bolanos MD 01/28/2025 11:07 AM Signed Shahbazmanny Mittal is a 69 year old male [...] Current care team: Patient Care Team: Martir Bolanos MD as PCP - General (Internal Medicine) Jennifer Bradford, GPS NAVIGATION INSTALLER.IMPREGNATING MACHINE OPERATOR as Box Packer (Internal Medicine) Eula Cochran OD (Optometry) Outside specialists seen: Cedrick Mcduffie [...] optometry/ophthalmology Right: 20/25 Left: 20/ 25 Both: 20 Assessment/Plan Medicare annual wellness visit, subsequent (Z00.00) - Counseled on healthy diet and regular exercise - Fall avoidance information provided - Personalized prevention plan provided - Discussed need for and benefit of weight loss. BMI 41.10 kg/(m2) - Counseled patient on alcohol intake and associated health risks Martir Bolanos MD 01/28/2025 10:44 AM Signed Screening schedule [...] review all the medicines you take, even vnnf-jhx-wnxkdyt medicines. As you get older, the way [...] on al (more content not included)... Normal [facility] CBC panel Auto (Bld)on 01-19 Erythrocyte distribution width (RBC) [Ratio] 14.1 % Normal 11.5-15.0 [facility] Comment on above: Order Comment: Juan Jose chavarria Type: BLOOD SPECIMEN Ordering Facility: [facility] Address: [address] [place] [address] Performed By: #### 2 4323-8 #### [facility] BRIANIA [id number] [address] [place] [address] [place] Hematocrit (Bld) [Volume fraction] 43.4 % Normal 39.0-51.0 [facility] Comment on above: Order Comment: Miriami aura Type: BLOOD SPECIMEN Ordering Facility: [facility] Address: [address] [place] [address] Performed By: #### 2 4323-8 #### [facility] CLIA [id number] [address] [place] [address] [place] Hemoglobin (Bld) [Mass/Vol] 14.4 g/dL Normal 13.0-17.0 [facility] Comment on above: Order Comment: Speci men Type: BLOOD SPECIMEN Ordering Facility: [facility] Address: [address] [place] [address] Performed By: #### 2 4323-8 #### [id number] [address] [place] [address] [place] MCH (RBC) [Entitic mass] 28.8 pg Normal 26.0-34.0 [facility] Comment on above: Order Comment: Speci men Type: BLOOD SPECIMEN Ordering Facility: [facility] Address: [address] [place] [address] Performed By: #### 2 4323-8 #### [facility] [id number] [address] [place] [address] [place] MCHC (RBC) [Mass/Vol] 33.2 g/dL Normal 30.5-36.0 [facility] Comment on above: Order Comment: Speci men Type: BLOOD SPECIMEN Ordering Facility: [facility] Address: [address] [place] [address] Performed By: #### 2 4323-8 #### [facility] [id number] [address] [place] [address] [place] MCV (RBC) [Entitic vol] 86.8 fL Normal 80.0-100.0 [facility] Comment on above: Order Comment: Speci men Type: BLOOD SPECIMEN Ordering Facility: [facility] Address: [address] [place] [address] Performed By: #### 2 4323-8 #### [facility] CLIA [id number] [address] [place] [address] [place] Nucleated RBC (Bld) [#/Vol] 10*3/uL Normal <0.01 [facility] Comment on above: Order Comment: Speci men Type: BLOOD SPECIMEN Ordering Facility: [facility] Address: [address] [place] [address] Performed By: #### 2 4323-8 #### [facility] CLIA [id number] [address] [place] [address] [place] Platelet mean volume (Bld) [Entitic vol] 10.4 fL Normal 9.0-12.7 [facility] Comment on above: Order Comment: Speci men Type: BLOOD SPECIMEN Ordering Facility: [facility] Address: [address] [place] [address] Performed By: #### 2 4323-8 #### [facility] CLIA [id number] [address] [place] [address] [place] Platelets (Bld) [#/Vol] 248 10*3/uL Normal 150-400 [facility] Comment on above: Order Comment: Speci men Type: BLOOD SPECIMEN Ordering Facility: [facility] Address: [address] [place] [address] Performed By: #### 2 4323-8 #### [facility] CLIA [id number] [address] [place] [address] [place] RBC (Bld) [#/Vol] 5.00 10*6/uL Normal 4.20-6.00 [facility] Comment on above: Order Comment: Speci men Type: BLOOD SPECIMEN Ordering Facility: [facility] Address: [address] [place] [address] Performed By: #### 2 4323-8 #### [facility] CLIA [id number] [address] [place] [address] [place] WBC (Bld) [#/Vol] 7.32 10*3/uL Normal 3.70-11.00 [facility] Comment on above: Order Comment: Speci men Type: BLOOD SPECIMEN Ordering Facility: [facility] Address: [address] [place] [address] Performed By: #### 2 4323-8 #### [facility] CLIA [id number] [address] [place] [address] [place] Comprehensive metabolic 2000 panelon 01-19-2025 Albumin [Mass/Vol] 4.3 g/dL Normal 3.9-4.9 [facility] Comment on above: Order Comment: Speci men Type: BLOOD SPECIMEN Ordering Facility: [facility] Address: [address] [place] [address] Performed By: #### 2 4323-8 #### [facility] CLIA [id number] [address] [place] [address] [place] ALP [Catalytic activity/Vol] 55 U/L Normal 38-113 [facility] Comment on above: Order Comment: Speci men Type: BLOOD SPECIMEN Ordering Facility: [facility] Address: [address] [place] [address] Performed By: #### 2 4323-8 #### [facility] CLIA [id number] [address] [place] [address] [place] ALT [Catalytic activity/Vol] 64 U/L High 10-54 [facility] Comment on above: Order Comment: Speci men Type: BLOOD SPECIMEN Ordering Facility: [facility] Address: [address] [place] [address] Performed By: #### 2 4323-8 #### [facility] CLIA [id number] [address] [place] [address] [place] Anion gap [Moles/Vol] 16 mmol/L High 8-15 [facility] Comment on above: Order Comment: Speci men Type: BLOOD SPECIMEN Ordering Facility: [facility] Address: [address] [place] [address] Performed By: #### 2 4323-8 #### [facility] CLIA [id number] [address] [place] [address] [place] AST [Catalytic activity/Vol] 33 U/L Normal 14-40 [facility] Comment on above: Order Comment: Speci men Type: BLOOD SPECIMEN Ordering Facility: [facility] Address: [address] [place] [address] Performed By: #### 2 4323-8 #### [facility] CLIA [id number] [address] [place] [address] [place] Bilirubin [Mass/Vol] 0.4 mg/dL Normal 0.2-1.3 [facility] Comment on above: Order Comment: Speci men Type: BLOOD SPECIMEN Ordering Facility: [facility] Address: [address] [place] [address] Performed By: #### 2 4323-8 #### [facility] [id number] [address] [place] [address] [place] Calcium [Mass/Vol] 9.6 mg/dL Normal 8.5-10.2 [facility] Comment on above: Order Comment: Speci men Type: BLOOD SPECIMEN Ordering Facility: [facility] Address: [address] [place] [address] Performed By: #### 2 4323-8 #### [facility] CLIA [id number] [address] [place] [address] [place] Chloride [Moles/Vol] 102 mmol/L Normal 98-107 [facility] Comment on above: Order Comment: Speci men Type: BLOOD SPECIMEN Ordering Facility: [facility] Address: [address] [place] [address] Performed By: #### 2 4323-8 #### [facility] CLIA [id number] [address] [place] [address] [place] CO2 [Moles/Vol] 20 mmol/L Low 22-30 [facility] Comment on above: Order Comment: Juan Jose chavarria Type: BLOOD SPECIMEN Ordering Facility: [facility] Address: [address] [place] [address] Performed By: #### 2 4323-8 #### [facility] CLIA [id number] [address] [place] [address] [place] Creatinine [Mass/Vol] 1.09 mg/dL Normal 0.73-1.22 [facility] Comment on above: Order Comment: Miriami men Type: BLOOD SPECIMEN Ordering Facility: [facility] Address: [address] [place] [address] Performed By: #### 2 4323-8 #### [facility] CLIA [id number] [address] [place] [address] [place] eGFRcr SerPlBld CKD-EPI 2020 73 mL/min/1.73m??? Normal >=60 [facility] Comment on above: Order Comment: Juan Jose men Type: BLOOD SPECIMEN Ordering Facility: [facility] Address: [address] [place] [address] Result Comment: Rocio mated Glomerular Filtration Rate [...] GFR. Performed By: #### 2 4323-8 #### [facility] CLIA [id number] [address] [place] [address] [place] Glucose [Mass/Vol] 161 mg/dL High 74-99 [facility] Comment on above: Order Comment: Miriami men Type: BLOOD SPECIMEN Ordering Facility: [facility] Address: [address] [place] [address] Result Comment: The [place] Diabetes Association (ADA) provides guidance for cutoff [...] Standards of Medical Care in Diabetes 2016, [place] Diabetes Association. Diabetes Care. 2016.39(Suppl 1). Performed By: #### 2 4323-8 #### [facility] [id number] [address] [place] [address] [place] Potassium [Moles/Vol] 4.2 mmol/L Normal 3.7-5.1 [facility] Comment on above: Order Comment: Speci men Type: BLOOD SPECIMEN Ordering Facility: [facility] Address: [address] [place] [address] Performed By: #### 2 4323-8 #### [facility] [id number] [address] [place] [address] [place] Protein [Mass/Vol] 7.3 g/dL Normal 6.3-8.0 [facility] Comment on above: Order Comment: Miriami men Type: BLOOD SPECIMEN Ordering Facility: [facility] Address: [address] [place] [address] Performed By: #### 2 4323-8 #### [facility] [id number] [address] [place] [address] [place] Sodium [Moles/Vol] 138 mmol/L Normal 136-144 [facility] Comment on above: Order Comment: Miriami men Type: BLOOD SPECIMEN Ordering Facility: [facility] Address: [address] [place] [address] Performed By: #### 2 4323-8 #### [facility] CLIA [id number] [address] [place] [address] [place] Urea nitrogen [Mass/Vol] 15 mg/dL Normal 9-24 [facility] Comment on above: Order Comment: Speci men Type: BLOOD SPECIMEN Ordering Facility: [facility] Address: [address] [place] [address] Performed By: #### 2 4323-8 #### [facility] CLIA [id number] [address] [place] [address] [place] HBV core Ab Ser Qlon 025 HBV core Ab Ql (S) Negative Normal Negative [facility] Comment on above: Order Comment: Speci men Type: BLOOD SPECIMEN Ordering Facility: [facility] Address: [address] [place] [address] Result Comment: No e vidence of current or past infection with Hepatitis B virus. Should recent infection be suspected, repeat testing may be considered 3-4 weeks after this draw. Performed By: #### 5 5454-3 #### [facility] CLIA [id number] [address] [place] [address] [place] HBV surface Ab Ql (S)on 12-31 HBV surface Ab Qn (S) <8.00 Normal [facility] Comment on above: Order Comment: Speci men Type: BLOOD SPECIMEN Ordering Facility: [facility] Address: [address] [place] [address] Result Comment: <8 m IU/mL: No serological evidence of immunity to Hepatitis B Virus. >/= 8 to <12 mIU/mL: No serological evidence of immunity to Hepatitis B Virus. >/= 12 mIU/mL: Consistent with serological evidence of immunity to Hepatitis B Virus. Performed By: #### 2 4323-8 #### [facility] CLIA [id number] [address] [place] [address] [place] HBV surface Ab Ser Qlon 12-31 HBV surface Ab Ql (S) Negative Normal [facility] Comment on above: Order Comment: Specwander chavarria Type: BLOOD SPECIMEN Ordering Facility: [facility] Address: [address] [place] [address] Result Comment: No s erological evidence of immunity to Hepatitis B Virus. Performed By: #### 2 4323-8 #### [facility] CLIA [id number] [address] [place] [address] [place] HBV surface Ag Ser Qlon 12-31 HBV surface Ag Ql (S) Negative Normal Negative [facility] Comment on above: Order Comment: Specwander chavarria Type: BLOOD SPECIMEN Ordering Facility: [facility] Address: [address] [place] [address] Performed By: #### 2 4323-8 #### [facility] CLIA [id number] [address] [place] [address] [place] HCV Ab Ser Qlon 01-19-2025 HCV Ab Ql (S) Negative Normal Negative [facility] Comment on above: Order Comment: Juan Jose chavarria Type: BLOOD SPECIMEN Ordering Facility: [facility] Address: [address] [place] [address] Result Comment: The result suggests no evidence of infection with Hepatitis C virus. Should recent infection be suspected, repeat testing may be considered 4-6 weeks after this draw. Performed By: #### 2 4323-8 #### [facility] CLIA [id number] [address] [place] [address] [place] HbA1c (Bld)on 01-19-2025 Average glucose Estimated from glycated hemoglobin (Bld) [Mass/Vol] 151 mg/dL Normal [facility] Comment on above: Order Comment: Juan Jose chavarria Type: BLOOD SPECIMEN Ordering Facility: [facility] Address: [address] [place] [address] Result Comment: eAG: (Estimated average glucose) is a calculated value from HgbA1c and is sales support representative of the average blood glucose level in the last 2-3 month period. Performed By: #### 5 5454-3 #### [facility] CLIA [id number] [address] [place] [address] [place] HbA1c (Bld) [Mass fraction] 6.9 % High 4.3-5.6 [facility] Comment on above: Order Comment: Speci men Type: BLOOD SPECIMEN Ordering Facility: [facility] Address: [address] [place] [address] Result Comment: [place] Diabetes Association guidelines indicate that patients with HgbA1c in the range 5.7-6.4% are at increased risk for development of diabetes, and intervention by lifestyle modification may be beneficial. HgbA1c greater or equal to 6.5% is considered diagnostic of diabetes. Performed By: #### 5 5454-3 #### [facility] CLIA [id number] [address] [place] [address] [place] US ABD RIGHT [...] other clinical data to evaluate the liver.. Chief Console Operator: ALEXIS Transcribe Date/Time: Jan 20 2025 10:24A Dictated by : CHHAYA COBB DO This examination was interpreted and the report reviewed and electronically signed by: CHHAYA COBB DO on Jan 20 2025 10:28AM EST [id number] Normal [facility] US ABD SPLEEN -NBon 01-20-20 US ABD SPLEEN -NB * * *Final [...] other clinical data to evaluate the liver.. Chief Console Operator: ALEXIS Transcribe Date/Time: Jan 20 2025 10:24A Dictated by : CHHAYA COBB DO This examination was interpreted and the report reviewed and electronically signed by: CHHAYA COBB DO on Jan 20 2025 10:28AM EST [id number] Normal [facility] Cardiology Visit Reporton Cardiology Visit Report [facility] [address] [place] [address] OFFICE VISIT Date of Service: 08/19/24 MR#: [id number] Acct: [id number] Name: SHAHBAZ MITTAL Rep #: [id number] : 1955 Provider: YULY cox Age/Sex: 69/M Location: [facility] 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 Normal [facility] CNOVon 07-24-2024 CNOV Office Visit (INTMWS ) ----- SHAHBAZ MITTAL ([id number]) 1955 M Date Time Provider Department 07/24/24 11:20 AM MARTIR BOLANOS INTMWS During your visit today, we recorded the following information about you: Temperature Pulse Respiration Blood pressure 98.2 degrees 69/minute 24/minute 127/83 Weight 121 kg Martir Bolanos MD 07/24/2024 12:45 PM Signed This note was created using [employer]. Subjective Shahbaz Mittal is a 68 year [...] Without Long-Term Current Use of Insulin (Hcc) ([facility]) Social History Tobacco Use Smoking status: Former [...] Mental Status: He is alert. Latest Ref Rng 07/15/2024 Protein, Total 6.3 - 8.0 g/dL [...] BLOOD COUNT 3. Coronary artery disease involving unga coronary artery of unga heart without angina pectoris - ICD9: 414.01, ICD10: I25.10 - Stable. 4. Obesity, Class II, BMI 35-39.9 - ICD9: 278.00, ICD10: (more content not included)... Normal [facility] ALBUMIN/CREATININE RATIO, UR INEon 07-15-2024 Albumin DL <= 20 mg/L (U) [Mass/Vol] mg/dL Normal [facility] Comment on above: Order Comment: Speci men Type: URINE SPECIMEN Ordering Facility: [facility] Address: [address] [place] [address] Performed By: #### U ACR #### [facility] CLIA [id number] [address] [place] [address] [place] Albumin/Creatinine (U) [Mass ratio] <8 Normal <30 [facility] Comment on above: Order Comment: Speci men Type: URINE SPECIMEN Ordering Facility: [facility] Address: [address] [place] [address] Result Comment: Adul t Male and Female Nephrotic Criteria: <30 mg/g is considered normal to mildly increased 30-300 mg/g is considered moderately increased >300 mg/g is considered severely increased KDIGO. (2013). KDIGO 2012 Clinical Practice Guideline for the Evaluation and Management of Chronic Kidney Disease. Official Journal of the International Society of Nephrology, 3(1), 1-150. Performed By: #### U ACR #### [facility] CLIA [id number] [address] [place] [address] [place] [place] Creatinine (U) [Mass/Vol] 147.5 mg/dL Normal 20.0-300.0 [facility] Comment on above: Order Comment: Speci men Type: URINE SPECIMEN Ordering Facility: [facility] Address: [address] [place] [address] Performed By: #### U ACR #### [facility] CLIA [id number] [address] [place] [address] [place] Comprehensive metabolic 2000 panelon 07-15-2024 Albumin [Mass/Vol] 4.5 g/dL Normal 3.9-4.9 [facility] Comment on above: Order Comment: Speci men Type: BLOOD SPECIMEN Ordering Facility: [facility] Address: [address] [place] [address] Performed By: #### 2 4323-8 #### [facility] CLIA [id number] [address] [place] [address] [place] ALP [Catalytic activity/Vol] 53 U/L Normal 38-113 [facility] Comment on above: Order Comment: Speci men Type: BLOOD SPECIMEN Ordering Facility: [facility] Address: [address] [id number] Performed By: #### 2 4323-8 #### [facility] CLIA [id number] [address] [place] [address] [place] ALT [Catalytic activity/Vol] 86 U/L High 10-54 [facility] Comment on above: Order Comment: Speci men Type: BLOOD SPECIMEN Ordering Facility: [facility] Address: [address] [place] [address] Performed By: #### 2 4323-8 #### [facility] CLIA [id number] [address] [place] [address] [place] Anion gap [Moles/Vol] 13 mmol/L Normal 8-15 [facility] Comment on above: Order Comment: Speci men Type: BLOOD SPECIMEN Ordering Facility: [facility] Address: [address] [place] [address] Performed By: #### 2 4323-8 #### [facility] CLIA [id number] [address] [place] [address] [place] AST [Catalytic activity/Vol] 46 U/L High 14-40 [facility] Comment on above: Order Comment: Speci men Type: BLOOD SPECIMEN Ordering Facility: [facility] Address: [address] [place] [address] Performed By: #### 2 4323-8 #### [facility] CLIA [id number] [address] [place] [address] [place] Bilirubin [Mass/Vol] 0.4 mg/dL Normal 0.2-1.3 [facility] Comment on above: Order Comment: Speci men Type: BLOOD SPECIMEN Ordering Facility: [facility] Address: [address] [place] [address] Performed By: #### 2 4323-8 #### [facility] CLIA [id number] [address] [place] [address] [place] Calcium [Mass/Vol] 9.8 mg/dL Normal 8.5-10.2 [facility] Comment on above: Order Comment: Speci men Type: BLOOD SPECIMEN Ordering Facility: [facility] Address: [address] [place] [address] Performed By: #### 2 4323-8 #### [facility] CLIA [id number] [address] [place] [address] [place] Chloride [Moles/Vol] 102 mmol/L Normal 98-107 [facility] Comment on above: Order Comment: Speci men Type: BLOOD SPECIMEN Ordering Facility: [facility] Address: [address] [place] [address] Performed By: #### 2 4323-8 #### [facility] CLIA [id number] [address] [place] [address] [place] CO2 [Moles/Vol] 25 mmol/L Normal 22-30 [facility] Comment on above: Order Comment: Speci men Type: BLOOD SPECIMEN Ordering Facility: [facility] Address: [address] [place] [address] Performed By: #### 2 4323-8 #### [facility] CLIA [id number] [address] [place] [address] [place] Creatinine [Mass/Vol] 1.17 mg/dL Normal 0.73-1.22 [facility] Comment on above: Order Comment: Speci men Type: BLOOD SPECIMEN Ordering Facility: [facility] Address: [address] [place] [address] Performed By: #### 2 4323-8 #### [facility] CLIA [id number] [address] [place] [address] [place] Creatinine and Glomerular filtration rate.predicted panel (S/P/Bld) 68 mL/min/1.73m??? Normal >=60 [facility] Comment on above: Order Comment: Speci men Type: BLOOD SPECIMEN Ordering Facility: [facility] Address: [address] [place] [address] Result Comment: Rocio mated Glomerular Filtration Rate [...] GFR. Performed By: #### 2 4323-8 #### [facility] CLIA [id number] [address] [place] [address] [place] Glucose [Mass/Vol] 132 mg/dL High 74-99 [facility] Comment on above: Order Comment: Juan Jose chavarria Type: BLOOD SPECIMEN Ordering Facility: [facility] Address: [address] [place] [address] Result Comment: The [place] Diabetes Association (ADA) provides guidance for cutoff [...] Standards of Medical Care in Diabetes 2016, [place] Diabetes Association. Diabetes Care. 2016.39(Suppl 1). Performed By: #### 2 4323-8 #### [facility] CLIA [id number] [address] [place] [address] [place] Potassium [Moles/Vol] 4.5 mmol/L Normal 3.7-5.1 [facility] Comment on above: Order Comment: Juan Jose chavarria Type: BLOOD SPECIMEN Ordering Facility: [facility] Address: [address] [id number] Performed By: #### 2 4323-8 #### [facility] CLIA [id number] [address] [place] [address] [place] Protein [Mass/Vol] 7.5 g/dL Normal 6.3-8.0 [facility] Comment on above: Order Comment: Speci men Type: BLOOD SPECIMEN Ordering Facility: [facility] Address: [address] [place] [address] Performed By: #### 2 4323-8 #### [id number] [address] [place] [address] [place] Sodium [Moles/Vol] 140 mmol/L Normal 136-144 [facility] Comment on above: Order Comment: Speci men Type: BLOOD SPECIMEN Ordering Facility: [facility] Address: [address] [place] [address] Performed By: #### 2 4323-8 #### [facility] [id number] [address] [place] [address] [place] Urea nitrogen [Mass/Vol] 16 mg/dL Normal 9-24 [facility] Comment on above: Order Comment: Speci men Type: BLOOD SPECIMEN Ordering Facility: [facility] Address: [address] [place] [address] Performed By: #### 2 4323-8 #### [facility] [id number] [address] [place] [address] [place] HbA1c (Bld)on 07-15-2024 Average glucose Estimated from glycated hemoglobin (Bld) [Mass/Vol] 154 mg/dL Normal [facility] Comment on above: Order Comment: Speci men Type: BLOOD SPECIMEN Ordering Facility: [facility] Address: [address] [place] [address] Result Comment: eAG: (Estimated average glucose) is a calculated value from HgbA1c and is sales support representative of the average blood glucose level in the last 2-3 month period. Performed By: #### 5 5454-3 #### [facility] CLIA [id number] [address] [place] [address] [place] HbA1c (Bld) [Mass fraction] 7.0 % High 4.3-5.6 [facility] Comment on above: Order Comment: Juan Jose chavarria Type: BLOOD SPECIMEN Ordering Facility: [facility] Address: [address] [place] [address] Result Comment: [place] Diabetes Association guidelines indicate that patients with HgbA1c in the range 5.7-6.4% are at increased risk for development of diabetes, and intervention by lifestyle modification may be beneficial. HgbA1c greater or equal to 6.5% is considered diagnostic of diabetes. Performed By: #### 5 5454-3 #### [facility] CLIA [id number] [address] [place] [address] [place] Lipid 1996 panelon 5 Cholesterol [Mass/Vol] 127 mg/dL Normal <200 [facility] Comment on above: Order Comment: Juan Jose chavarria Type: BLOOD SPECIMEN Ordering Facility: [facility] Address: [address] [place] [address] Result Comment: <200 mg/dL, Desirable 200-239 mg/dL, Borderline high >239 mg/dL, High Performed By: #### 2 4323-8 #### [facility] [id number] [address] [place] [address] [place] Cholesterol in HDL [Mass/Vol] 33 mg/dL Low >39 [facility] Comment on above: Order Comment: Juan Jose chavarria Type: BLOOD SPECIMEN Ordering Facility: [facility] Address: [address] [place] [address] Result Comment: 40-5 9 mg/dL, Acceptable >59 mg/dL, High: Negative risk factor for coronary heart disease <40 mg/dL, Low: Positive risk factor for coronary heart disease Performed By: #### 2 4323-8 #### [facility] CLIA [id number] [address] [place] [address] [place] Cholesterol in LDL [Mass/Vol] 71 mg/dL Normal <100 [facility] Comment on above: Order Comment: Juan Jose chavarria Type: BLOOD SPECIMEN Ordering Facility: [facility] Address: [address] [place] [address] Result Comment: <100 mg/dL, Optimal 100-129 mg/dL, Near optimal/above optimal 130-159 mg/dL, Borderline high 160-189 mg/dL, High >189 mg/dL, Very high Secondary prevention optimal LDL Cholesterol levels are recommended to be < 70 mg/dL Performed By: #### 2 4323-8 #### [facility] CLIA [id number] [address] [place] [address] STATES [facility] Cholesterol in LDL/Cholesterol in HDL [Mass ratio] 2.15 {ratio} Normal <2.54 [facility] Comment on above: Order Comment: Miriami aura Type: BLOOD SPECIMEN Ordering Facility: [facility] Address: [address] [place] [address] Result Comment: Padma diaz: 1. National Cholesterol Education Program ATP III Guideline At-A-Glance Quick Desk Reference: National Heart, Lung, and Blood [place]. National Institutes of Health. 2001: NIH Publication No. 01-3305. 2. An International Atherosclerosis Society position paper: global recommendations for the management of dyslipidemia: executive summary, Atherosclerosis. 2014: 232(2):410-413. Performed By: #### 2 4323-8 #### [facility] CLIA [id number] [address] [place] [address] [place] Cholesterol in VLDL [Mass/Vol] 23 mg/dL Normal <30 [facility] Comment on above: Order Comment: Juan Jose chavarria Type: BLOOD SPECIMEN Ordering Facility: [facility] Address: [address] [place] [address] Performed By: #### 2 4323-8 #### [facility] CLIA [id number] [address] [place] [address] [place] Cholesterol non HDL [Mass/Vol] 94 mg/dL Normal <130 [facility] Comment on above: Order Comment: Speci men Type: BLOOD SPECIMEN Ordering Facility: [facility] Address: [address] [place] [address] Result Comment: <130 mg/dL, Optimal 130-159 mg/dL, Near optimal/above optimal 160-189 mg/dL, Borderline high 190-219 mg/dL, High >219 mg/dL, Very high Secondary prevention optimal non HDL Cholesterol levels are recommended to be <100 mg/dL Performed By: #### 2 4323-8 #### [facility] CLIA [id number] [address] [place] Cholesterol.total/ Cholesterol in HDL [Mass ratio] 3.85 {ratio} Normal <5.10 [facility] Comment on above: Order Comment: Speci men Type: BLOOD SPECIMEN Ordering Facility: [facility] Address: [address] [place] [address] Performed By: #### 2 4323-8 #### [facility] CLIA [id number] [address] [place] [address] FASTING TIME 12 hrs Normal [facility] Comment on above: Order Comment: Speci men Type: BLOOD SPECIMEN Ordering Facility: [facility] Address: [address] [place] [address] Performed By: #### 2 4323-8 #### [facility] CLIA [id number] [address] [place] [address] [place] Triglyceride [Mass/Vol] 115 mg/dL Normal <150 [facility] Comment on above: Order Comment: Speci men Type: BLOOD SPECIMEN Ordering Facility: [facility] Address: [address] [place] [address] Result Comment: <150 mg/dL, Normal 150-199 mg/dL, Borderline high 200-499 mg/dL, High >499 mg/dL, Very high Performed By: #### 2 4323-8 #### [facility] CLIA [id number] [address] [place] [address] [place] OCT MACULA CIRRUS OU (BOTH E YES)on 01-08-2024 [facility] Radiology Study observation (narrative) [facility] Tu 05-02-2023 MILYN Telephone (AKURFL) ----- SHAHBAZ MITTAL ([id number]) 1955 M Date Time Provider Department 05/02/23 MILTON ANDINO During your visit today, we recorded the following information about you: Khadar Balderas Pauline 05/02/2023 9:13 AM Signed Left pt vm he needs scheduled with Dr. Rex Cabrales on [facility] in [place]. I did leave him the phone number. [...] DM - Controlled E11.9 Insulin: No - [place]-3 Fatty Acids 500 mg cap Take 2 [...] Status:Closed by PAULINE CHOWDHURY on 05/02/23 Normal [facility] UA DIP, URINE (POC)on 2022 BILIRUBIN UA (POCT) Negative Negative [facility] CLARITY UA (POCT) Clear [facility] COLOR UA (POCT) Yellow [facility] GLUCOSE UA (POCT) Negative Negative mg/dL [facility] Hemoglobin Ql (U) Trace-lysed Abnormal Negative [facility] KETONE UA (POCT) Negative Negative mg/dL [facility] LEUKOCYTES UA (POCT) Negative Negative [facility] NITRITE UA (POCT) Negative Negative [facility] PH UA (POCT) 6.0 4.5 - 8.0 [facility] Protein Ql (U) Negative Negative mg/dL [facility] SPECIFIC GRAVITY UA (POCT) 1.020 1.005 - 1.030 [facility] UROBILINOGEN UA (POCT) 0.2 E.U./dL Normal E.U./dL [facility] ALBUMIN/CREAT RATIO RND URon 04-18-2023 Albumin DL <= 20 mg/L (U) [Mass/Vol] [facility] Albumin/Creatinine (U) [Mass ratio] <30 mg/g [facility] Creatinine (U) [Mass/Vol] 105.6 mg/dL 20.0 - 300.0 mg/dL [facility] Basic metabolic 2000 panelon 04-18-2023 Anion gap [Moles/Vol] 10 mmol/L 9 - 18 mmol/L [facility] Calcium [Mass/Vol] 9.8 mg/dL 8.5 - 10. 2 mg/dL [facility] Chloride [Moles/Vol] 103 mmol/L 97 - 105 mmol/L [facility] CO2 [Moles/Vol] 24 mmol/L 22 - 30 mmol/L [facility] Creatinine [Mass/Vol] 1.17 mg/dL 0.73 - 1.22 mg/dL [facility] Estimated Glomerular Filtration Rate 68 mL/min/1.73m >=60 mL/min/1.73m [facility] Glucose [Mass/Vol] 147 mg/dL High 74 - 99 mg/dL [facility] Potassium [Moles/Vol] 4.5 mmol/L 3.7 - 5.1 mmol/L [facility] Sodium [Moles/Vol] 137 mmol/L 136 - 144 mmol/L [facility] Urea nitrogen [Mass/Vol] 15 mg/dL 9 - 24 mg/dL [facility] HbA1c (Bld)on 04-18-2023 Average glucose Estimated from glycated hemoglobin (Bld) [Mass/Vol] 148 mg/dL [facility] HbA1c (Bld) [Mass fraction] 6.8 % High 4.3 - 5.6 % [facility] XR RIBS 2 VIEWS LEFTon 10-05 XR [...] Date: 10/05/2022 8:25:37 PM Ordering Provider: IVONE YEN [facility] ([place]) ECG COMPLETEon 10-14-2021 Atrial Rate 60 BPM [facility] Calculated P [place] 109 degrees [facility] Calculated R [place] 12 degrees [facility] Calculated T [place] 57 degrees [facility] P-R Interval 228 ms [facility] QRS Duration 98 ms [facility] QT Interval 432 ms [facility] QTC Calculation (Bazett) 432 ms [facility] Ventricular Rate 60 BPM [facility] Vital Signs Date Time Vital Sign Value Performing Clinician Facility 04-21-2025 10:57-0400 Body height 173.[address] Martir Bolanos MD Work Phone: [facility] 04-21-2025 10:57-0400 Body mass index (BMI) [Ratio] 41 kg/m2 Dr. Martir Bolanos MD Work Phone: [facility] 04-21-2025 10:57-0400 Body weight 124.[address] Martir Bolanos MD Work Phone: [facility] 04-21-2025 10:57-0400 Diastolic blood pressure 81 mm[Hg] Dr. Martir Bolanos MD Work Phone: [facility] 04-21-2025 10:57-0400 Heart rate 65 /min Dr. Martir Bolanso MD Work Phone: [facility] 04-21-2025 10:57-0400 Respiratory rate 16 /min Dr. Martir Bolanos MD Work Phone: [facility] 04-21-2025 10:57-0400 Systolic blood pressure 148 mm[Hg] Dr. Martir Bolanos MD Work Phone: [facility] 01-28-2025 10:27-0400 Diastolic blood pressure 84 mm[Hg] Martir Bolanos MD Work Phone: [facility] 01-28-2025 10:27-0400 Heart rate 70 /min Martir Bolanos MD Work Phone: [facility] 01-28-2025 10:27-0400 Systolic blood pressure 124 mm[Hg] Martir Bolanos MD Work Phone: [facility] 01-28-2025 10:19-0400 Body height 172.1 cm Martir Bolanos MD Work Phone: [facility] 01-28-2025 10:19-0400 Body mass index (BMI) [Ratio] 41.1 kg/m2 Martir Bolanos MD Work Phone: [facility] 01-28-2025 10:19-0400 Body weight 121.7 kg Martir Bolanos MD Work Phone: [facility] 07-24-2024 11:17-0500 Diastolic blood pressure 83 mm[Hg] Martir Bolanos MD Work Phone: [facility] 07-24-2024 11:17-0500 Heart rate 69 /min Martir Bolanos MD Work Phone: [facility] 07-24-2024 11:17-0500 Systolic blood pressure 127 mm[Hg] Martir Bolanos MD Work Phone: [facility] 07-24-2024 11:11-0500 Body mass index (BMI) [Ratio] 41.04 kg/m2 Martir Bolanos MD Work Phone: [facility] 07-24-2024 11:11-0500 Body temperature 98.2 [degF] Martir Bolanos MD Work Phone: [facility] 07-24-2024 11:11-0500 Body weight 121 kg Martir Bolanos MD Work Phone: [facility] 07-24-2024 11:11-0500 Respiratory rate 24 /min Martir Bolanos MD Work Phone: [facility] 01-22-2024 10:14-0400 Body height 171.7 cm Martir Bolanos MD Work Phone: [facility] 01-22-2024 10:14-0400 Body mass index (BMI) [Ratio] 40.16 kg/m2 Martir Bolanos MD Work Phone: [facility] 01-22-2024 10:140400 Body temperature 97.3 [degF] Martir Bolanos MD Work Phone: [facility] 01-22-2024 10:14-0400 Body weight 118.39 kg Martir Bolanos MD Work Phone: [facility] 01-22-2024 10:14-0400 Diastolic blood pressure 80 mm[Hg] Martir Bolanos MD Work Phone: [facility] 01-22-2024 10:14-0400 Heart rate 73 /min Martir Bolanos MD Work Phone: [facility] 01-22-2024 10:14-0400 Respiratory rate 24 /min Martir Bolanos MD Work Phone: [facility] 01-22-2024 10:14-0400 Systolic blood pressure 129 mm[Hg] Martir Bolaons MD Work Phone: [facility] 10-18-2023 09:15-0400 Diastolic blood pressure 74 mm[Hg] Martir Bolanos MD Work Phone: [facility] 10-18-2023 09:15-0400 Heart rate 66 /min Martir Bolanos MD Work Phone: [facility] 10-18-2023 09:15-0400 Systolic blood pressure 137 mm[Hg] Martir Bolanos MD Work Phone: [facility] 10-18-2023 09:06-0400 Body temperature 96.91 [degF] Martir Bolanos MD Work Phone: [facility] 10-18-2023 09:06-0400 Body weight 120.66 kg Martir Bolanos MD Work Phone: [facility] 10-18-2023 09:06-0400 Respiratory rate 24 /min Martir Bolanos MD Work Phone: [facility] 05-01-2023 16:30-0400 Body height 174 cm Milton Andino PA-C Work Phone: [facility] 05-01-2023 16:30-0400 Body temperature 98.2 [degF] Milton Adnino PA-C Work Phone: [facility] 05-01-2023 16:30-0400 Body weight 123.47 kg Milton Andino PA-C Work Phone: [facility] 05-01-2023 16:30-0400 Diastolic blood pressure 80 mm[Hg] Milton Andino PA-C Work Phone: [facility] 05-01-2023 16:30-0400 Heart rate 98 /min Milton Andino PA-C Work Phone: [facility] 05-01-2023 16:30-0400 Respiratory rate 16 /min Milton Andino PA-C Work Phone: [facility] 05-01-2023 16:30-0400 SaO2% (BldA) [Mass fraction] 96 % Milton Andino PA-C Work Phone: [facility] 05-01-2023 16:30-0400 Systolic blood pressure 160 mm[Hg] Milton Andino PA-C Work Phone: [facility] 10-05-2022 21:50-0400 Diastolic Blood Pressure Non-Invasive 89 1 BARB JOSHI DO [facility] 10-05-2022 21:50-0400 Heart rate 89 /min BARB JOSHI DO [facility] 10-05-2022 21:50-0400 Respiratory rate 18 /min BARB JOSHI DO [facility] 10-05-2022 21:50-0400 Systolic Blood Pressure Non-Invasive 144 1 BARB JOSHI DO [facility] 10-05-2022 20:55-0400 Diastolic Blood Pressure Non-Invasive 89 1 BARB JOSHI DO [facility] 10-05-2022 20:55-0400 Heart rate 82 /min BARB JOSHI DO [facility] 10-05-2022 20:55-0400 Systolic Blood Pressure Non-Invasive 137 1 BARB JOSHI DO [facility] 10-05-2022 18:13-0400 Body temperature 97.52 [degF] BARB JOSHI DO [facility] 10-05-2022 18:13-0400 Diastolic Blood Pressure Non-Invasive 65 1 BARB JOSHI DO [facility] 10-05-2022 18:13-0400 Heart rate 87 /min BARB JOSHI DO [facility] 10-05-2022 18:13-0400 Respiratory rate 18 /min BARB JOSHI DO [facility] 10-05-2022 18:13-0400 Systolic Blood Pressure Non-Invasive 151 1 BARB JOSHI DO [facility] 04-20-2022 09:21-0400 Body temperature 97.81 [degF] Martir Bolanos MD Work Phone: [facility] 04-20-2022 09:21-0400 Body weight 120.2 kg Martir Bolanos MD Work Phone: [facility] 04-20-2022 09:21-0400 Diastolic blood pressure 76 mm[Hg] Martir Bolanos MD Work Phone: [facility] 04-20-2022 09:21-0400 Heart rate 76 /min Martir Bolanos MD Work Phone: [facility] 04-20-2022 09:21-0400 Respiratory rate 16 /min Martir Bolanos MD Work Phone: [facility] 04-20-2022 09:21-0400 SaO2% (BldA) [Mass fraction] 97 % Martir Bolanos MD Work Phone: [facility] 04-20-2022 09:21-0400 Systolic blood pressure 128 mm[Hg] Martir Bolanos MD Work Phone: [facility] 12-20-2021 13:18-0400 Body height 173.[address] Martir Bolanos Work Phone: [facility] Work Phone: 12-20-2021 13:18-0400 Body mass index (BMI) [Ratio] 38.7 kg/m2 Dr. Martir Bolanos Work Phone: [facility] Work Phone: 12-20-2021 13:18-0400 Body weight 117.[address] Martir Bolanos Work Phone: [facility] Work Phone: 12-20-2021 13:18-0400 Diastolic blood pressure 87 mm[Hg] Dr. Martir Bolanos Work Phone: [facility] Work Phone: 12-20-2021 13:18-0400 Heart rate 74 /min Dr. Martir Bolanos Work Phone: [facility] Work Phone: 12-20-2021 13:18-0400 Respiratory rate 16 /min Dr. Martir Bolanos Work Phone: [facility] Work Phone: 12-20-2021 13:18-0400 SaO2% (BldA) [Mass fraction] 95 % Dr. Martir Bolanos Work Phone: [facility] Work Phone: 12-20-2021 13:18-0400 Systolic blood pressure 149 mm[Hg] Dr. Martir Bolanos Work Phone: [facility] Work Phone: 10-14-2021 09:27-0400 Body weight 112.4 kg Martir Bolanos MD Work Phone: [facility] 10-14-2021 09:27-0400 Diastolic blood pressure 82 mm[Hg] Martir Bolanos MD Work Phone: [facility] 10-14-2021 09:27-0400 Heart rate 60 /min Martir Bolanos MD Work Phone: [facility] 10-14-2021 09:27-0400 Respiratory rate 16 /min Martir Bolanos MD Work Phone: [facility] 10-14-2021 09:27-0400 Systolic blood pressure 136 mm[Hg] Martir Bolanos MD Work Phone: [facility] Encounters Encounter Date Encounter Type Care Provider Facility Start: 05-14-2025 ambulatory Cedrick Mcduffie Facility:[facility] Start: 05-11-2025 ambulatory [facility] Facility:[facility] Start: 04-21-2025 End: 04-21-[address] Cedrick Mcduffie MD -[facility] Work Phone: Start: 04-21-2025 End: 04-21-[address] Martir Bolanos MD Work Phone: -[facility] Start: 03-10-2025 End: 03-10-2025 Refill Martir Bolanos MD Work Phone: Internal Medicine [place] Comment on above: Med Change Request Start: 01-28-2025 End: 01-28-2025 ambulatory MARTIR BOLANOS Facility:[facility] Start: 01-28-2025 End: 01-28-2025 Patient encounter procedure Martir Bolanos MD Work Phone: Internal Medicine [place] Comment on above: Medicare annual well ness visit, subsequent (Primary Dx); Screening for depression; Encounter for screening examination for other mental health and behavioral disorders; Obesity, Class III, BMI >= 40; Elevated liver enzymes; S/P CABG x 4; Type 2 diabetes mellitus with stage 2 chronic kidney disease, without long-term current use of insulin (HCC); Coronary artery disease involving unga coronary artery of unga heart without angina pectoris; Pure hypercholesterolemia Start: 01-24-2025 End: 01-24-2025 Follow-up encounter Martir Bolanos MD Work Phone: Internal Medicine [place] Start: 01-19-2025 End: 01-19-2025 ambulatory MARTIR BOLANOS Facility:[facility] Start: 01-19-2025 End: 01-19-2025 Subsequent hospital visit by physician [facility] Work Phone: Radiology Comment on above: Elevated liver enzym es [R74.8] Start: 08-19-2024 End: 08-19-2024 ambulatory Martir Bolanos Facility:[facility] Start: 07-24-2024 End: 07-24-2024 ambulatory MARTIR BOLANOS Facility:[facility] Start: 07-24-2024 End: 07-24-2024 Office outpatient visit 25 minutes Martir Bolanos MD Work Phone: Internal Medicine [place] Comment on above: Pure hypercholestero lemia (Primary Dx); Primary hypertension; Coronary artery disease involving unga coronary artery of unga heart without angina pectoris; Obesity, Class II, BMI 35-39.9; Type 2 diabetes mellitus with stage 2 chronic kidney disease, without long-term current use of insulin (HCC) (HCC); Elevated liver enzymes Start: 07-15-2024 End: 07-15-2024 ambulatory MARTIR BOLANOS Facility:[facility] Start: 06-09-2024 End: 06-09-2024 ambulatory EULA COCHRAN Facility:[facility] Start: 06-09-2024 End: 06-09-2024 Patient encounter procedure Eula Cochran OD Work Phone: Ophthalmology Comment on above: Type 2 diabetes wally itus without retinopathy (HCC) (Primary Dx); Posterior vitreous detachment of left eye; Combined forms of age-related cataract of both eyes; Regular astigmatism of both eyes; Presbyopia; Meibomian gland dysfunction (MGD) of upper and lower lids of both eyes Start: 04-09-2024 End: 04-09-2024 Refill Martir Bolanos MD Work Phone: Internal Medicine [place] Comment on above: Refill Request Start: 02-05-2024 End: 02-05-2024 ambulatory EULA COCHRAN Facility:[facility] Start: 02-05-2024 End: 02-05-2024 Patient encounter procedure Eula Cochran OD Work Phone: Ophthalmology Comment on above: Posterior vitreous d etachment of left eye (Primary Dx); Type 2 diabetes mellitus without retinopathy (HCC); Hypertensive retinopathy of both eyes; Combined forms of age-related cataract of both eyes; Regular astigmatism of both eyes; Presbyopia Start: 01-22-2024 End: 01-22-2024 Patient encounter procedure Martir Bolanos MD Work Phone: Internal Medicine [place] Comment on above: Medicare annual well ness visit, subsequent (Primary Dx); Type 2 diabetes mellitus with stage 2 chronic kidney disease, without long-term current use of insulin (HCC) (HCC); Primary hypertension; Pure hypercholesterolemia; Obesity, Class II, BMI 35-39.9; Coronary artery disease involving unga coronary artery of unga heart without angina pectoris Start: 01-08-2024 End: 01-08-2024 Patient encounter procedure Eula Cochran OD Work Phone: Ophthalmology Comment on above: Posterior vitreous d etachment of left eye (Primary Dx); Type 2 diabetes mellitus without retinopathy (HCC); Hypertensive retinopathy of both eyes; Combined forms of age-related cataract of both eyes; Regular astigmatism of both eyes; Presbyopia Start: 10-18-2023 End: 10-18-2023 Patient encounter procedure Martir Bolanos MD Work Phone: Internal Medicine [place] Comment on above: Type 2 diabetes wally itus with stage 2 chronic kidney disease, without long-term current use of insulin (HCC) (HCC) (Primary Dx); Primary hypertension; Pure hypercholesterolemia; Coronary artery disease involving unga coronary artery of unga heart without angina pectoris Start: 09-18-2023 ambulatory June Brower MA [facility] Comment on above: Population Health Na vigation Outreach ([facility]) Start: 09-17-2023 Refill Martir Bolanos MD Work Phone: Internal Medicine [place] Comment on above: Refill Request Start: 08-17-2023 Refill Martir Bolanos MD Work Phone: Internal Medicine [place] Comment on above: Refill Request Start: 08-02-2023 End: 08-02-2023 ambulatory Neri Zazueta PT [facility] Comment on above: Spasm of muscle of l ower back (Primary Dx); Stiff neck Start: 06-14-2023 End: 06-14-2023 ambulatory Ina Jensen TREATMENT MANAGER Work Phone: [facility] Comment on above: Spasm of muscle of l ower back (Primary Dx); Stiff neck Start: 06-08-2023 End: 06-08-2023 Patient encounter procedure Eula Cochran OD Work Phone: Ophthalmology Comment on above: Type 2 diabetes wally itus without retinopathy (HCC) (Primary Dx); Hypertensive retinopathy of both eyes; Combined forms of age-related cataract of both eyes; Regular astigmatism of both eyes; Presbyopia Start: 06-07-2023 End: 06-07-2023 ambulatory Neri Zazueta PT [facility] Comment on above: Spasm of muscle of l ower back (Primary Dx); Stiff neck Start: 05-23-2023 End: 05-23-2023 ambulatory Neri Zazueta PT [facility] Comment on above: Spasm of muscle of l ower back (Primary Dx); Stiff neck Start: 05-09-2023 Telephone encounter Martir Bolanos MD Work Phone: Internal Medicine [place] Comment on above: Patient Update (on b ack/neck pain and medication) Start: 05-02-2023 Telephone encounter Milton Skinny romano PA-C Work Phone: [facility] Comment on above: Appointment Start: 05-01-2023 End: 05-01-2023 Patient encounter procedure Milton [place] Cruz AMEZCUA Work Phone: Urology Comment on above: Hidden penis (Primar y Dx); Abnormal urinary stream Start: 04-18-2023 End: 04-18-2023 Patient encounter procedure Martir Bolanos MD Work Phone: Internal Medicine [place] Comment on above: Need for influenza v accination (Primary Dx); Pure hypercholesterolemia; Coronary artery disease involving unga coronary artery of unga heart without angina pectoris; Primary hypertension; Stiff neck; Spasm of muscle of lower back; Abnormal urinary stream; Type 2 diabetes mellitus with stage 2 chronic kidney disease, without long-term current use of insulin (HCC) Start: 11-07-2022 Telephone encounter Martir Bolanos MD Work Phone: Internal Medicine [place] Comment on above: Blood Pressure Check Start: 11-07-2022 End: 11-07-2022 Patient encounter procedure Jennifer Quevedo APRN.IMPREGNATING MACHINE OPERATOR Work Phone: Internal Medicine [place] Comment on above: Primary hypertension (Primary Dx) Start: 10-24-2022 End: 10-24-2022 Patient encounter procedure Eula Cochran OD Work Phone: Ophthalmology Comment on above: Retinal hemorrhage, left eye (Primary Dx); Hypertensive retinopathy of left eye; Type 2 diabetes mellitus without retinopathy (HCC); Combined forms of age-related cataract of both eyes; Regular astigmatism of both eyes; Presbyopia Start: 10-05-2022 End: 10-06-2022 Emergency department patient visit DR MARTIR BOLANOS MD Facility:[facility] Start: 10-05-2022 End: 10-05-2022 Emergency department patient visit BARB JOSHI DO [facility] Start: 08-01-2022 Refill Martir Bolanos MD Work Phone: [facility] Comment on above: Refill Request Start: 06-13-2022 Refill Martir Bolanos MD Work Phone: Internal Medicine [place] Comment on above: Refill Request Start: 04-20-2022 End: 04-20-2022 Patient encounter procedure Martir Bolanos MD Work Phone: Internal Medicine [place] Comment on above: Type 2 diabetes wally itus with stage 2 chronic kidney disease, without long-term current use of insulin (HCC) (Primary Dx); Encounter for immunization; Pure hypercholesterolemia; Coronary artery disease involving unga coronary artery of unga heart without angina pectoris; Primary hypertension; Obesity, Class II, BMI 35-39.9 Start: 01-18-2022 Non-patient / Non-visit Dr. Maricruz Bolanos Work Phone: [facility] Start: 01-18-2022 End: 01-18-[address] Martir Bolanos Work Phone: [facility] Start: 12-20-2021 End: 12-20-[address] Martir Bolanos Work Phone: [facility] Start: 12-19-2021 Non-patient / Non-visit Dr. Maricruz Bolanos Work Phone: [facility] Start: 10-14-2021 End: 10-14-2021 Patient encounter procedure Martir Bolanos MD Work Phone: Internal Medicine [place] Comment on above: Type 2 diabetes wally itus with stage 2 chronic kidney disease, without long-term current use of insulin (HCC) (Primary Dx); Primary hypertension; Coronary artery disease involving unga coronary artery of unga heart without angina pectoris Start: 09-27-2021 ambulatory Martir Bolanos MD Work Phone: [facility] [place] Start: 11-30-2017 Ambulatory DWIGHT ANA LAURA Facility :[facility] Procedures Date Procedure Procedure Detail Performing Clinician Start: 01-28-2025 Adult depression screening assessment Martir Bolanos MD Work Phone: Start: 01-08-2024 Computerized ophthal michael imaging retina Eula Cochran OD Work Phone: Start: 05-01-2023 Urnls dip stick/tabl et rgnt auto w/o microscopy Milton Andino PA-C Work Phone: Start: 04-18-2023 INFLUENZA VACCINE, P RSV FREE, AGE 65+ YR, HIGH DOSE, QUADRIVALENT (FLUZONE HIGH-DOSE) Martir Bolanos MD Work Phone: Start: 04-20-2022 INFLUENZA SEASONAL QUADRIVALENT HIGH DOSE AGE 65+ Martir Bolanos MD Work Phone: Start: 04-20-2022 PFIZER-BIONTECH COVI D-19 BIVALENT BOOSTER VACCINE, AGE 12+ YR Martir Bolanos MD Work Phone: Start: 01-18-2022 Radionuclide imaging of perfusion of myocardium under exercise stress Dr. Martir Bolanos Work Phone: Start: 10-14-2021 Adult depression screening assessment Martir Bolanos MD Work Phone: Start: 10-04-2020 Adult depression screening assessment Martir Bolanos MD Work Phone: Start: 05-05-2019 Colonoscopy Martir Mahoney MD Work Phone: Start: 02-09-2017 History of coronary artery bypass grafting S/P CABG x 4 Martir Bolanos MD Work Phone: Start: 02-18-2013 History of coronary artery bypass grafting H/O coronary artery bypass surgery Dr. Cedrick Mcduffie MD Comment on above: CABG X 4: WERNER-LAD, SVG-D1,SVG-D2,Radial Artery-LCx 02/18/2013 History of coronary artery bypass grafting S/P CABG x 4 Martir Bolanos MD Work Phone: Plan of Treatment Date Care Activity Detail Author Start: 05-05-2029 Colonoscopy COLONOSCOPY [facility] Start: 05-05-2029 COLORECTAL CANCER SCREENING COLORECTAL CANCER SCREENING [facility] Start: 05-05-2029 Screening for malignant neoplasm of colon [facility] Start: 10-05-2026 PROSTATE CANCER SCREENING DISCUSSION PROSTATE CANCER SCREENING DISCUSSION [facility] Start: 10-05-2026 Prostate specific antigen measurement Prostate Cancer Screening Discussion [facility] Start: 01-28-2026 Annual PCP Team Chronic Disease Visit Annual PCP Team Chronic Disease Visit [facility] Start: 01-28-2026 Anxiety Screening Anxiety Screening [facility] Start: 01-28-2026 Depression Screening Depression Screening [facility] Start: 01-28-2026 Diabetic foot examination Diabetic Foot Exam [facility] Start: 01-19-2026 Creatinine measurement Serum Creatinine [facility] Start: 07-31-2025 End: 07-31-2025 Patient encounter procedure 07/31/2025 10:40 AM EST Office Visit Internal Medicine [place] [address] [place], [place] [id number] Martir Bolanos MD [address] [place] [address] 6 month follow-up Internal Medicine [place] Comment on above: 6 month follow-up Start: 07-24-2025 Annual PCP Team Chronic Disease Visit Annual PCP Team Chronic Disease Visit [facility] Start: 07-24-2025 Covid-19 Vaccine ( season) Covid-19 Vaccine () [facility] Comment on above: Postponed from 03/02/2024 (Declined at t his time) Start: 07-22-2025 Hemoglobin A1c measurement HbA1C [facility] Start: 07-15-2025 Creatinine measurement Serum Creatinine [facility] Start: 07-15-2025 Hepatitis B screening Urine Albumin:Creatinine Ratio [facility] Start: 07-15-2025 Hepatitis B surface antibody level LDL Cholesterol [facility] Start: 07-13-2025 End: 10-12-2025 Comprehensive metabolic 2000 panel - Serum or Plasma COMPREHENSIVE METABOLIC PANEL Lab Routine Pure hypercholesterolemia Expected: 07/13/2025, Expires: 10/12/2025 [facility] Work Phone: Comment on above: Expected: 07/13/2025, Expires: Start: 07-13-2025 End: 10-12-2025 Hemoglobin A1c in Blood HEMOGLOBIN A1C Lab Routine Type 2 diabetes mellitus with stage 2 chronic kidney disease, without long-term current use of insulin (HCC) Expected: 07/13/2025, Expires: 10/12/2025 [facility] Comment on above: Expected: 07/13/2025, Expires: Start: 07-13-2025 End: 10-12-2025 Lipid 1996 panel - Serum or Plasma LIPID PANEL, FASTING Lab Routine Pure hypercholesterolemia Expected: 07/13/2025, Expires: 10/12/2025 [facility] Comment on above: Expected: 07/13/2025, Expires: Start: 07-13-2025 End: 10-12-2025 Microalbumin/Creatinine [Mass Ratio] in Urine ALBUMIN/CREATININE RATIO, URINE Lab Routine Type 2 diabetes mellitus with stage 2 chronic kidney disease, without long-term current use of insulin (HCC) Expected: 07/13/2025, Expires: 10/12/2025 [facility] Comment on above: Expected: 07/13/2025, Expires: Start: 06-11-2025 End: 06-11-2025 Patient encounter procedure 06/11/2025 1:45 PM EST Office Visit [facility] [address] [place] [address] Eula Cochran, OD [address] [place] [address] 1 YR F/U for diabetic eye exam. Ophthalmology Comment on above: 1 YR F/U for diabetic eye exam. Start: 06-09-2025 Glaucoma screening Dilated Retinal Exam [facility] Start: 04-21-2025 Radionuclide imaging of perfusion of myocardium under exercise stress [facility] Start: 03-02-2025 Influenza vaccination Influenza Vaccine (#1) [facility] Start: 02-04-2025 Glaucoma screening Dilated Retinal Exam [facility] Start: 01-28-2025 End: 01-28-2025 Patient encounter procedure 01/28/2025 10:20 AM EDT Office Visit Internal Medicine [place] [address] [place] [address] Martir Bolanos MD [address] [place] [address] Annual Medicare Wellness w/6 month follow-up [facility] Medicine [place] Comment on above: Annual Medicare Wellness w/6 month follo w-up Start: 01-21-2025 Annual PCP Team Chronic Disease Visit Annual PCP Team Chronic Disease Visit [facility] Start: 01-21-2025 End: 04-22-2025 CBC panel - Blood by Automated count COMPLETE BLOOD COUNT Lab Routine Primary hypertension Expected: 01/21/2025, Expires: 04/22/2025 [facility] Work Phone: Comment on above: Expected: 01/21/2025, Expires: Start: 01-21-2025 End: 04-22-2025 Chronic hepatitis differentiation between hepatitis B and C virus panel - Serum or Plasma HEP REMOTE PANEL BL Lab Routine Elevated liver enzymes Expected: 01/21/2025, Expires: 04/22/2025 [facility] Comment on above: Expected: 01/21/2025, Expires: Start: 01-21-2025 End: 04-22-2025 Comprehensive metabolic 2000 panel - Serum or Plasma COMPREHENSIVE METABOLIC PANEL Lab Routine Elevated liver enzymes Expected: 01/21/2025, Expires: 04/22/2025 [facility] Comment on above: Expected: 01/21/2025, Expires: Start: 01-21-2025 End: 04-22-2025 Hemoglobin A1c in Blood HEMOGLOBIN A1C Lab Routine Type 2 diabetes mellitus with stage 2 chronic kidney disease, without long-term current use of insulin (HCC) (HCC) Expected: 01/21/2025, Expires: 04/22/2025 [facility] Comment on above: Expected: 01/21/2025, Expires: Start: 01-19-2025 End: 01-19-2025 Patient encounter procedure 01/19/2025 9:15 AM EDT Appointment Radiology [address] [place] [address] Elevated liver enzymes [R74.8] Radiology Comment on above: Elevated liver enzymes [R74.8] Start: 01-12-2025 Hemoglobin A1c measurement HbA1C [facility] Start: 01-08-2025 Creatinine measurement Serum Creatinine [facility] Start: 01-07-2025 Glaucoma screening Dilated Retinal Exam [facility] Start: 10-17-2024 Annual PCP Team Chronic Disease Visit Annual PCP Team Chronic Disease Visit [facility] Start: 10-17-2024 Covid-19 Vaccine () Covid-19 Vaccine () [facility] Comment on above: Postponed from 03/02/2023 (Declined at t his time) Start: 10-17-2024 Diabetic foot examination Diabetic Foot Exam [facility] Start: 10-03-2024 Creatinine measurement Serum Creatinine [facility] Start: 10-03-2024 Hepatitis B surface antibody level LDL Cholesterol [facility] Start: 08-31-2024 Urine microalbumin profile [facility] Comment on above: Postponed from 08/31/2014 (Postponed To Appropriate Date) Start: 07-24-2024 End: 10-23-2024 Comprehensive metabolic 2000 panel - Serum or Plasma COMPREHENSIVE METABOLIC PANEL Lab Routine Type 2 diabetes mellitus with stage 2 chronic kidney disease, without long-term current use of insulin (HCC) (HCC) Expected: 07/24/2024, Expires: 10/23/2024 [facility] Work Phone: Comment on above: Expected: 07/24/2024, Expires: Start: 07-24-2024 End: 10-23-2024 Hemoglobin A1c in Blood HEMOGLOBIN A1C Lab Routine Type 2 diabetes mellitus with stage 2 chronic kidney disease, without long-term current use of insulin (HCC) (HCC) Expected: 07/24/2024, Expires: 10/23/2024 [facility] Comment on above: Expected: 07/24/2024, Expires: Start: 07-24-2024 End: 10-23-2024 Lipid 1996 panel - Serum or Plasma LIPID PANEL BASIC Lab Routine Pure hypercholesterolemia Expected: 07/24/2024, Expires: 10/23/2024 [facility] Comment on above: Expected: 07/24/2024, Expires: Start: 07-24-2024 End: 10-23-2024 Microalbumin/Creatinine [Mass Ratio] in Urine ALBUMIN/CREATININE RATIO, URINE Lab Routine Type 2 diabetes mellitus with stage 2 chronic kidney disease, without long-term current use of insulin (HCC) (HCC) Expected: 07/24/2024, Expires: 10/23/2024 [facility] Comment on above: Expected: 07/24/2024, Expires: Start: 07-24-2024 End: 07-24-2024 Patient encounter procedure 07/24/2024 11:20 AM EST Office Visit Internal Medicine [place] [address] [address] Martir Bolanos MD [address] [place] [address] 6 month follow-up Internal Medicine [place] Comment on above: 6 month follow-up Start: 07-02-2024 Advance Directive Discussion Advance Directive Discussion [facility] Start: 07-02-2024 Medicare Advantage Annual Wellness Visit Medicare Advantage Annual Wellness Visit [facility] Start: 06-09-2024 End: 06-09-2024 Patient encounter procedure 06/09/2024 1:45 PM EST Office Visit [facility] [address] [place] [address] Eula Cochran, OD [address] [place] [address] Annual Diabetic eye exam Ophthalmology Comment on above: Annual Diabetic eye exam Start: 06-08-2024 Glaucoma screening Dilated Retinal Exam [facility] Start: 06-08-2024 Hepatitis C antibody, confirmatory test Dilated Retinal Exam [facility] Start: 06-03-2024 Shingrix Vaccine (3 of 3) Shingrix Vaccine (3 of 3) [facility] Start: 04-18-2024 Annual PCP Team Chronic Disease Visit Annual PCP Team Chronic Disease Visit [facility] Start: 04-18-2024 Creatinine measurement Serum Creatinine [facility] Start: 04-18-2024 Hepatitis B screening Urine Albumin:Creatinine Ratio [facility] Start: 04-18-2024 Serum Creatinine Serum Creatinine [facility] Start: 04-04-2024 Hemoglobin A1c measurement HbA1C [facility] Start: 03-02-2024 Covid-19 Vaccine ( season) Covid-19 Vaccine ( season) [facility] Start: 03-02-2024 [facility] Start: 02-05-2024 End: 02-05-2024 Patient encounter procedure 02/05/2024 12:30 PM EDT Office Visit [facility] [address] [place] [address] Eula Cochran, OD [address] [place] [address] 3-4 weeks for PVD follow-up left eye dilation only Ophthalmology Comment on above: 3-4 weeks for PVD follow-up left eye dil ation only Start: 01-22-2024 End: 01-22-2024 Patient encounter procedure 01/22/2024 10:20 AM EDT Office Visit Internal Medicine [place] [address] [place] [address] Martir Bolanos MD [address] [place] [address] Medicare wellness w/HTN [facility] [place] Comment on above: Medicare wellness w/HTN Start: 01-17-2024 End: 04-17-2024 Basic metabolic 2000 panel - Serum or Plasma BASIC METABOLIC PANEL Lab Routine Type 2 diabetes mellitus with stage 2 chronic kidney disease, without long-term current use of insulin (HCC) (HCC) Expected: 01/17/2024, Expires: 04/17/2024 [facility] Work Phone: Comment on above: Expected: 01/17/2024, Expires: Start: 12-08-2023 Hepatitis C antibody, confirmatory test Dilated Retinal Exam [facility] Start: 11-08-2023 ANNUAL PCP TEAM CHRONIC DISEASE VISIT ANNUAL PCP TEAM CHRONIC DISEASE VISIT [facility] Start: 10-25-2023 Hepatitis C antibody, confirmatory test DILATED RETINAL EXAM [facility] Start: 10-18-2023 3 comp foot exam completed DIABETIC FOOT EXAM [facility] Start: 10-18-2023 ANNUAL PCP TEAM CHRONIC DISEASE VISIT ANNUAL PCP TEAM CHRONIC DISEASE VISIT [facility] Start: 10-18-2023 End: 01-17-2024 Comprehensive metabolic 2000 panel - Serum or Plasma COMP METABOLIC PANEL Lab Routine Type 2 diabetes mellitus with stage 2 chronic kidney disease, without long-term current use of insulin (HCC) Expected: 10/18/2023, Expires: 01/17/2024 [facility] Work Phone: Comment on above: Expected: 10/18/2023, Expires: Start: 10-18-2023 Diabetic foot examination Diabetic Foot Exam [facility] Start: 10-18-2023 End: 01-17-2024 Hemoglobin A1c in Blood HGB A1C Lab Routine Type 2 diabetes mellitus with stage 2 chronic kidney disease, without long-term current use of insulin (HCC) Expected: 10/18/2023, Expires: 01/17/2024 [facility] Work Phone: Comment on above: Expected: 10/18/2023, Expires: Start: 10-18-2023 Hemoglobin A1c measurement HbA1C [facility] Start: 10-18-2023 Hemoglobin A1c/Hemoglobin.total in Blood HbA1C [facility] Start: 10-18-2023 Hepatitis B surface antibody level LDL CHOLESTEROL [facility] Start: 10-18-2023 End: 01-17-2024 Lipid 1996 panel - Serum or Plasma LIPID PANEL BASIC Lab Routine Pure hypercholesterolemia Expected: 10/18/2023, Expires: 01/17/2024 [facility] Work Phone: Comment on above: Expected: 10/18/2023, Expires: Start: 10-18-2023 SERUM CREATININE SERUM CREATININE [facility] Start: 07-02-2023 Advance Directive Discussion Advance Directive Discussion [facility] Start: 07-02-2023 Behavioral Health Screening Behavioral Health Screening [facility] Start: 07-02-2023 Depression Assessment Depression Assessment [facility] Start: 04-21-2023 Hepatitis B screening URINE ALBUMIN:CREATININE RATIO [facility] Start: 04-21-2023 Hepatitis B surface antibody level LDL CHOLESTEROL [facility] Start: 04-21-2023 SERUM CREATININE SERUM CREATININE [facility] Start: 04-20-2023 ANNUAL PCP TEAM CHRONIC DISEASE VISIT ANNUAL PCP TEAM CHRONIC DISEASE VISIT [facility] Start: 04-20-2023 BP CONTROLLED (<130/80) BP CONTROLLED (<130/80) [facility] Start: 04-18-2023 Hemoglobin A1c/Hemoglobin.total in Blood HBA1C [facility] Start: 03-02-2023 Covid-19 Vaccine () Covid-19 Vaccine () [facility] Start: 12-18-2022 PROSTATE CANCER SCREENING DISCUSSION PROSTATE CANCER SCREENING DISCUSSION [facility] Start: 10-20-2022 Hemoglobin A1c/Hemoglobin.total in Blood HBA1C [facility] Start: 10-14-2022 3 comp foot exam completed DIABETIC FOOT EXAM [facility] Start: 10-14-2022 Adult depression screening assessment DEPRESSION SCREENING [facility] Start: 10-14-2022 ANNUAL PCP TEAM CHRONIC DISEASE VISIT ANNUAL PCP TEAM CHRONIC DISEASE VISIT [facility] Start: 10-14-2022 SHINGRIX VACCINE (2 of 3) SHINGRIX VACCINE (2 of 3) [facility] Comment on above: Postponed from 08/29/2016 (Insurance Cov erage) Start: 10-05-2022 SERUM CREATININE SERUM CREATININE [facility] Start: 07-11-2022 ANNUAL PCP TEAM CHRONIC DISEASE VISIT ANNUAL PCP TEAM CHRONIC DISEASE VISIT [facility] Start: 07-11-2022 BP CONTROLLED (<130/80) BP CONTROLLED (<130/80) [facility] Start: 07-02-2022 ADVANCE DIRECTIVE DISCUSSION ADVANCE DIRECTIVE DISCUSSION [facility] Start: 07-02-2022 DEPRESSION ASSESSMENT DEPRESSION ASSESSMENT [facility] Start: 04-15-2022 End: 06-15-2022 ALBUMIN/CREAT RATIO RND UR ALBUMIN/CREAT RATIO RND UR Lab Routine Type 2 diabetes mellitus with stage 2 chronic kidney disease, without long-term current use of insulin (HCC) Expected: 04/15/2022, Expires: 06/15/2022 [facility] Work Phone: Comment on above: Expected: 04/15/2022, Expires: Start: 04-15-2022 End: 06-15-2022 Comprehensive metabolic 2000 panel - Serum or Plasma COMP METABOLIC PANEL Lab Routine Type 2 diabetes mellitus with stage 2 chronic kidney disease, without long-term current use of insulin (HCC) Expected: 04/15/2022, Expires: 06/15/2022 [facility] Work Phone: Comment on above: Expected: 04/15/2022, Expires: 2 Start: 04-15-2022 End: 06-15-2022 Hemoglobin A1c/Hemoglobin.total in Blood HGB A1C Lab Routine Type 2 diabetes mellitus with stage 2 chronic kidney disease, without long-term current use of insulin (HCC) Expected: 04/15/2022, Expires: 06/15/2022 [facility] Work Phone: Comment on above: Expected: 04/15/2022, Expires: 2 Start: 04-15-2022 End: 06-15-2022 LIPID PANEL BASIC LIPID PANEL BASIC Lab Routine Type 2 diabetes mellitus with stage 2 chronic kidney disease, without long-term current use of insulin (HCC) Expected: 04/15/2022, Expires: 06/15/2022 [facility] Work Phone: Comment on above: Expected: 04/15/2022, Expires: 2 Start: 04-13-2022 Hepatitis B screening URINE ALBUMIN:CREATININE RATIO [facility] Start: 04-13-2022 PNEUMOCOCCAL: 65+ (2 - PCV) PNEUMOCOCCAL: 65+ (2 - PCV) [facility] Start: 04-08-2022 Hepatitis B surface antibody level LDL CHOLESTEROL [facility] Start: 04-06-2022 Hemoglobin A1c/Hemoglobin.total in Blood HBA1C [facility] Start: 10-07-2021 Hemoglobin A1c/Hemoglobin.total in Blood HBA1C [facility] Start: 10-04-2021 Adult depression screening assessment DEPRESSION SCREENING [facility] Start: 09-27-2021 End: 11-27-2021 CBC panel - Blood by Automated count CBC Lab Routine Type 2 diabetes mellitus without complication, without long-term current use of insulin (HCC) Expected: 09/27/2021, Expires: 11/27/2021 [facility] Work Phone: Comment on above: Expected: 09/27/2021, Expires: 2 Start: 09-27-2021 End: 11-27-2021 SCHEDULE LAB TESTING SCHEDULE LAB TESTING Lab Routine Expected: 09/27/2021, Expires: 11/27/2021 [facility] Work Phone: Comment on above: Expected: 09/27/2021, Expires: 2 Start: 07-02-2021 ADVANCE DIRECTIVE DISCUSSION ADVANCE DIRECTIVE DISCUSSION [facility] Start: 08-29-2016 SHINGRIX VACCINE (2 of 3) SHINGRIX VACCINE (2 of 3) [facility] Start: 03-05-2016 FECAL OCCULT BLOOD FECAL OCCULT BLOOD [facility] Start: 03-05-2016 Screening for malignant neoplasm of colon Fecal Occult Blood [facility] Start: 2015 Hepatitis B Vaccine (1 of 3 - Risk 3-dose series) Hepatitis B Vaccine (1 of 3 - Risk 3-dose series) [facility] Start: 2015 RSV Vaccine (1 - 1-dose 60+ series) RSV Vaccine (1 - 1-dose 60+ series) [facility] Start: 2015 RSV Vaccine (1 - Risk 60-74 years 1-dose series) RSV Vaccine (1 - Risk 60-74 years 1-dose series) [facility] Start: 08-31-2014 Urine microalbumin profile DTaP,Tdap,Td Vaccine (1 - Tdap) [facility] Start: 2000 COLOGUARD (FIT-DNA) COLOGUARD (FIT-DNA) [facility] Start: [address] COLONOGRAPHY [facility] Start: 2000 Screening for malignant neoplasm of colon [facility] Start: 2000 SIGMOIDOSCOPY SIGMOIDOSCOPY [facility] Start: 1973 Anxiety Screening Anxiety Screening [facility] Start: 1973 Depression Screening Depression Screening [facility] Start: 1965 3 comp foot exam completed DIABETIC FOOT EXAM [facility] Start: 1965 Hepatitis C antibody, confirmatory test DILATED RETINAL EXAM [facility] POST VOID RESIDUAL POST VOID RES IDUAL Procedures Routine Abnormal urinary stream Ordered: 05/01/2023 [facility] Work Phone: Comment on above: Ordered: 05/01/2023 End: 08-23-2025 US Abdomen RUQ US ABD RIGHT UPPER QUADRANT Radiology Routine Elevated liver enzymes 1 Occurrences starting 07/24/2024 until 08/23/2025 [facility] Comment on above: 1 Occurrences starting 07/24/2024 until 08/23/2025 US Abdomen RUQ US ABD RIGHT UPP ER QUADRANT Radiology Routine Elevated liver enzymes 01/19/2025 9:28 AM EDT [facility] End: 01-19-2025 Us abdominal real time w/image limited [facility] Work Phone: Comment on above: ONCE for 1 Occurrences starting 01/20/20 until 01/19/2025 [facility] Immunizations Immunization Date Immunization Notes Care Provider Tanner cardenas 06-10-2024 zoster vaccine recombinant Martir Bolanos MD Work Phone: [facility] 04-08-2024 respiratory syncytia l virus (RSV) vaccine, adjuvanted (AREXVY) Eula Cochran OD Work Phone: [facility] 04-08-2024 Seasonal trivalent influenza vaccine, adjuvanted, preservative free Eula Cochran OD Work Phone: [facility] 04-08-2024 zoster vaccine recombinant Eula Cochran OD Work Phone: [facility] 04-08-2024 influenza virus vacc ine, unspecified formulation Us 1 Work Phone: [facility] 04-18-2023 influenza (HD-IIV4) vaccine, age 65+ yr, high dose, quadrivalent, PF (FLUZONE HIGH-DOSE) Martir Bolanos MD Work Phone: [facility] 04-18-2023 influenza virus vacc ine, unspecified formulation Eula Cochran OD Work Phone: [facility] 10-17-2022 pneumococcal (PCV20) vaccine, 20 valent (PREVNAR 20) Eula Langleysheridan ALVARADO Work Phone: [facility] Work Phone: 04-20-2022 COVID-19 booster vaccine, age 12+ yr, bivalent (19pay) Martir Bolanos MD Work Phone: [facility] 04-20-2022 influenza, high-dose , quadrivalent vaccine (FLUZONE HIGH DOSE QUADRIVALENT) Martir Bolanos MD Work Phone: [facility] 06-30-2021 COVID-19 vaccine, booster dose (MODERNA) Martir Bolanos MD Work Phone: [facility] Work Phone: 04-13-2021 influenza, high-dose , quadrivalent vaccine (FLUZONE HIGH DOSE QUADRIVALENT) Martir Bolanos MD Work Phone: [facility] Work Phone: 04-13-2021 pneumococcal polysaccharide vaccine, 23 valent Martir Bolanos MD Work Phone: [facility] Work Phone: 10-21-2020 COVID-19 vaccine, fu ll dose (MODERNA) Martir Bolanos MD Work Phone: [facility] Work Phone: 09-22-2020 COVID-19 vaccine, fu ll dose (MODERNA) Martir Bolanos MD Work Phone: [facility] Work Phone: 04-01-2020 influenza, injectabl e, quadrivalent, contains preservative Martir Bolanos MD Work Phone: [facility] Work Phone: 05-08-2019 Influenza, injectabl e, [place] [place] Canine Kidney, preservative free, quadrivalent Martir Bolanos MD Work Phone: [facility] 05-08-2019 influenza, injectabl e, quadrivalent, preservative free Martir Bolanos MD Work Phone: [facility] Work Phone: 04-30-2018 influenza, injectabl e, quadrivalent, contains preservative Martir Bolanos MD Work Phone: [facility] 03-21-2017 influenza, injectabl e, quadrivalent, contains preservative Martir Bolanos MD Work Phone: [facility] 07-04-2016 zoster vaccine, live Martir Bolanos MD Work Phone: [facility] Work Phone: 06-14-2016 influenza, injectabl e, quadrivalent, preservative free Martir Bolnaos MD Work Phone: [facility] Work Phone: 06-14-2016 influenza, seasonal, injectable Martir Bolanos MD Work Phone: [facility] Work Phone: 06-28-2015 influenza, injectabl e, quadrivalent, contains preservative Martir Bolanos MD Work Phone: [facility] 06-28-2015 influenza, injectabl e, quadrivalent, preservative free Martir Bolanos MD Work Phone: [facility] Work Phone: 08-30-2014 TD(adult) unspecifie d formulation Martir Bolanos MD Work Phone: [facility] Work Phone: 08-30-2014 tetanus and diphther ia toxoids, adsorbed, preservative free, for adult use (2 Lf of tetanus toxoid and 2 Lf of diphtheria toxoid) Martir Bolanos MD Work Phone: [facility] Work Phone: 08-30-2014 tetanus toxoid, redu candace diphtheria toxoid, and acellular pertussis vaccine, adsorbed BARB JOSHI DO [facility] 06-26-2014 influenza, seasonal, injectable aMrtir Bolanos MD Work Phone: [facility] 04-16-2013 influenza virus vacc ine, unspecified formulation Martir Bolanos MD Work Phone: [facility] 05-13-2011 influenza virus vacc ine, unspecified formulation Martir Bolanos MD Work Phone: [facility] 05-12-2010 influenza virus vacc ine, unspecified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 Accept Invitation to [place] [employer]4.Fill in the required blunt to create your account. Sign into [email or web address] with your username and password that you [...] you will allow to register on the [facility] [employer] Patient Portal for access to your information. You can also access the [facility] [employer] Patient Portal on the Spiration. Simply click on "Health Records" under "HealthData" and then click on the [facility] logo. HOW TO SAFELY DISPOSE OF PRESCRIPTION [...] Call your local pharmacy or go to [email or web address] to find one close to you.3.Make use of household items: Use cat litter or old coffee grounds to dispose medications if other options arenot available. Mix your drugs with these household products, seal them in an airtight container andthrow it into the garbage. Call [facility]: [phone] to be sure your drugs can be [...] aware that I should contact my doctor. Patient/Reception Signature: Date/Time: Relationship to Patient: Witness Name/Signature: Date/Time: [id number] Note ORIGINAL EXAMINATION: 2 XRAY VIEWS OF [...] Sign Date: 10/05/2022 8:25:37 PM Ordering Provider: [facility]04-06-2023 Note ORIGINAL EXAMINATION: 2 XRAY VIEWS [...] Date: 10/05/2022 8:25:37 PM Ordering Provider: [facility]01-31-2023 Miscellaneous Notes* Telephone Encounter - Bolivar Angel Ma - 08/01/2022 9:57 AM EST TANISHA: 04/20/2022 * Telephone Encounter - Becca Monterroso - 08/01/2022 9:52 AM EST Patient has [...] pharmacy. No need to notify patient. [facility] documented in this encounterMain [facility] Center12-[facility]22 Miscellaneous Notes* Telephone Encounter - Karen Mayes Pss - 06/13/2022 10:06 AM EST Pharmacy verified in Epic Patient has been identified by name and [...] advise. Karen Mayes Pss documented in this encounterMain [facility] Center10-20-2022 Instructions* Patient Instructions* Martir Bolanos MD - 04/20/2022 9:34 AM EDT FASTING LABS AND URINE TESTS THIS WEEK. CALL FOR BLOOD WORK IN SPRING. REQUEST EYE EXAM REPORT. documented in this encounterMain [facility] Center10-20-[facility]22 History of Present illness Narrative* Martir Bolanos MD - 04/20/2022 9:25 AM EDT This note was created using Make Worksriter. Subjective Patient presents with: F/U 6 months [...] Disease, Without Long-Term Current Use of Insulin ([facility]) Social History Tobacco Use Smoking status: Former [...] 2 DM - Controlled E11.9 Insulin: No [place]-3 Fatty Acids 500 mg cap Take 2 [...] immunization - ICD9: V03.89, ICD10: Z23 - PFIZER-BIONTECH COVID-19 BIVALENT BOOSTER VACCINE, AGE 12+ YR - INFLUENZA SEASONAL QUADRIVALENT HIGH DOSE AGE 65+ 3. Pure hypercholesterolemia - ICD9: 272.0, ICD10: E78.00 TBD. - ATORVASTATIN 40 MG TABLET 4. Coronary artery disease involving unga coronary artery of unga heart without angina pectoris- ICD9: 414.01, ICD10: I25.10 Stable. - METOPROLOL TARTRATE 25 MG TABLET 5. Primary hypertension - ICD9: 401.9, ICD10: I10 - good control - LISINOPRIL 40 MG TABLET 6. Obesity, Class II, BMI 35-39.9 - ICD9: 278.00, ICD10: E66.9 Weight increasing Low carb diet. Exercise. Martir Bolanos MD documented in this encounterMain [facility]04-15-2022 Instructions* Patient Instructions* Martir Bolanos MD - 10/14/2021 10:15 AM EDT Diabetic eye exam due. documented in this encounterMain [facility] Center04-15-2022 History of Present illness Narrative* Martir Bolanos MD - 10/14/2021 9:57 AM EDT This note was created using [employer]. Subjective Patient presents with: F/U 6 months [...] 2 DM - Controlled E11.9 Insulin: No [place]-3 Fatty Acids (FISH OIL) 500 mg cap [...] BP <130/80 3. Coronary artery disease involving unga coronary artery of unga heart without angina pectoris- ICD9: 414.01, ICD10: I25.10 - ECG COMPLETE - CONSULT TO CARDIOLOGY Martir Bolanos MD documented in this encounterMain [facility] Center10-13-[facility]21 History of Past illness Narrative* Problem Noted [...] of this encounter (statuses as of 10/19/2021) [facility] Narrative* Problem Noted [...] of this encounter (statuses as of 04/22/2022) [facility] Narrative* Problem Noted Date Resolved Date Abnormal urinary stream 04/13/2021 10/15/19 22 Obesity (BMI 30.0-34.9) 02/09/2017 08/07/19 20 Kidney insufficiency 02/07/2017 04/30/2018 Impaired fasting glucose 02/07/2017152 022 Vasculogenic erectile dysfunction 07/04/2016 04/20/2022 STEMI (ST elevation myocardial infarction) 02/1406/28/2015 Tobacco use disorder 09/30/2007 06/08/2011 Overview: Quit about age 45: used a pipe-he did not inhale it Obesity, unspecified 09/30/2007 02/09/2017 Unspecified essential hypertension 09/30/2007 11/06/2012 Cardiac dysrhythmia, unspecified 09/30/2007 11/06/2012 documented as of this encounter (statuses as of 06/13/2022) [facility] Narrative* Problem Noted Date Resolved Date Abnormal urinary stream 04/13/2021 10/15/19 22 Obesity (BMI 30.0-34.9) 02/09/2017 08/07/19 20 Kidney insufficiency 02/07/2017 04/30/2018 Impaired fasting glucose 02/07/201710/14/2 022 Vasculogenic erectile dysfunction 07/04/2016 04/20/2022 STEMI (ST elevation myocardial infarction) 02/1406/28/2015 Tobacco use disorder 09/30/2007 06/08/2011 Overview: Quit about age 45: used a pipe-he did not inhale it Obesity, unspecified 09/30/2007 02/09/2017 Unspecified essential hypertension 09/30/2007 11/06/2012 Cardiac dysrhythmia, unspecified 09/30/2007 11/06/2012 documented as of this encounter (statuses as of 08/01/2022) [facility] Narrative* Problem Noted [...] of this encounter (statuses as of 10/25/2022) [facility] Narrative* Problem Noted [...] of this encounter (statuses as of 11/07/2022) [facility] Narrative* Problem Noted [...] of this encounter (statuses as of 11/07/2022) [facility] Narrative* Problem Noted [...] of this encounter (statuses as of 04/22/2023) [facility] Narrative* Problem Noted [...] of this encounter (statuses as of 05/02/2023) [facility] Narrative* Problem Noted [...] of this encounter (statuses as of 05/02/2023) [facility] Narrative* Problem Noted [...] of this encounter (statuses as of 05/10/2023) [facility] Narrative* Problem Noted [...] of this encounter (statuses as of 05/23/2023) [facility] Narrative* Problem Noted [...] of this encounter (statuses as of 06/08/2023) [facility] Narrative* Problem Noted [...] of this encounter (statuses as of 06/08/2023) [facility] Narrative* Problem Noted [...] of this encounter (statuses as of 06/15/2023) [facility] Narrative* Problem Noted [...] of this encounter (statuses as of 08/03/2023) [facility] Narrative* Problem Noted [...] of this encounter (statuses as of 08/20/2023) [facility] Narrative* Problem Noted [...] of this encounter (statuses as of 09/17/2023) [facility] Narrative* Problem Noted [...] of this encounter (statuses as of 09/18/2023) [facility] Narrative* Problem Noted [...] of this encounter (statuses as of 09/30/2021) [facility]* Diagnosis Onset Date Resolution Status Essential hypertension chron ic H/O coronary artery bypass surgery February 18, 2013 chronic Hyperlipidemia [facility] Work Phone: 1(579) 377-386508-20-2013 Evaluation note* Diagnosis Onset Date Resolution Status Admit Date Essential hypertension chronic Oc tob2024 10:55am H/O coronary artery bypass surgery February 18, 2013 chronic April 21, 2025 10:55am Hyperlipidemia chronic April 212024 10:55am [facility] Work Phone: Evaluation + Plan note No data available for this section [facility] Evaluation note* Diagnosis Type 2 diabetes mellitus without complication, without long-term current use of insulin (HCC) [facility] Diagnosis Type 2 diabetes mellitus with stage 2 chronic kidney disease, without long-term current use of insulin (HCC)- Primary Primary hypertension Unspecified essential hypertension Coronary artery disease involving unga coronary artery of unga heart without angina pectoris [facility]* Diagnosis Type 2 diabetes mellitus with stage 2 chronic kidney disease, without long-term current use of insulin (HCC)- Primary Encounter for immunization Need for other specified prophylactic vaccination against single bacterial disease Pure hypercholesterolemia Coronary artery disease involving unga coronary artery of unga heart without angina pectoris Primary hypertension Unspecified essential hypertension Obesity, Class II, BMI 35-39.9 Obesity, unspecified [facility] Diagnosis Type 2 diabetes mellitus without complication, without long-term current use of insulin (HCC) [facility] Diagnosis Retinal hemorrhage, left eye- Primary [...] Regular astigmatism Presbyopia [facility] Diagnosis Primary hypertension- Primary Unspecified essential hypertension [facility]* Diagnosis Need for influenza vaccination- Primary Need for prophylactic vaccination and inoculation against influenza Pure hypercholesterolemia Coronary artery disease involving unga coronary artery of unga heart without angina pectoris Primary hypertension Unspecified essential hypertension Stiff neck Torticollis, unspecified Spasm of muscle of lower back Abnormal urinary stream Other abnormality of urination Type 2 diabetes mellitus with stage 2 chronic kidney disease, without long-term current use of insulin (HCC) [facility] Diagnosis Hidden penis- Primary Abnormal urinary stream Other abnormality of urination [facility] Spasm of muscle of lower back- Primary Stiff neck Torticollis, unspecified [facility] Diagnosis Spasm of muscle of lower back- Primary Stiff neck Torticollis, unspecified [facility] Diagnosis Spasm of muscle of lower back- Primary Stiff neck Torticollis, unspecified [facility] Diagnosis Type 2 diabetes mellitus without retinopathy (HCC)- Primary Type II or unspecified type diabetes mellitus without mention of complication, not stated as uncontrolled Hypertensive retinopathy of both eyes Hypertensive retinopathy Combined forms of age-related cataract of both eyes Other and combined forms of senile cataract Regular astigmatism of both eyes Regular astigmatism Presbyopia [facility] Diagnosis Spasm of muscle of lower back- Primary Stiff neck Torticollis, unspecified [facility]* Diagnosis Type 2 diabetes mellitus without complication, without long-term current use of insulin (HCC) documented [facility]* Diagnosis Type 2 diabetes mellitus with stage 2 chronic kidney disease, without long-term current use of insulin (HCC) (HCC)- Primary Primary hypertension Unspecified essential hypertension Pure hypercholesterolemia Coronary artery disease involving unga coronary artery of unga heart without angina pectoris [facility] Diagnosis Posterior vitreous detachment of left [...] Regular astigmatism Presbyopia [facility] Diagnosis Medicare annual wellness visit, subsequent- Primary Routine general medical examination at a health care facility Type 2 diabetes mellitus with stage 2 chronic kidney disease, without long-term current use of insulin (HCC) (HCC) Primary hypertension Unspecified essential hypertension Pure hypercholesterolemia Obesity, Class II, BMI 35-39.9 Obesity, unspecified Coronary artery disease involving unga coronary artery of unga heart without angina pectoris documented [facility] Diagnosis Posterior vitreous detachment of left [...] Regular astigmatism Presbyopia [facility] Diagnosis Primary hypertension Unspecified essential hypertension Pure hypercholesterolemia Coronary artery disease involving unga coronary artery of unga heart without angina pectoris [facility] Diagnosis Type 2 diabetes mellitus without [...] of both eyes [facility] Diagnosis Pure hypercholesterolemia- Primary Primary hypertension Unspecified essential hypertension Coronary artery disease involving unga coronary artery of unga heart without angina pectoris Obesity, Class II, BMI 35-39.9 Obesity, unspecified Type 2 diabetes mellitus with stage 2 chronic kidney disease, without long-term current use of insulin (HCC) (HCC) Elevated liver enzymes Other nonspecific abnormal serum enzyme levels [facility] Diagnosis Elevated liver enzymes Other nonspecific abnormal serum enzyme levels [facility] Diagnosis Medicare annual wellness visit, subsequent- [...] of insulin (HCC) Coronary artery disease involving unga coronary artery of unga heart without angina pectoris Pure hypercholesterolemia documented [facility] Diagnosis Type 2 diabetes mellitus with stage 2 chronic kidney disease, without long-term current use of insulin (HCC) [facility] Author Cedrick Mcduffie [facility] Note Date/Time April 21, 2025 1 2:19pm [facility] [address] [place] [address] OFFICE VISIT Date of Service: 04/21/25 MR#: [id number] Acct: [id number] Name: SHAHBAZ MITTAL Rep #: [id number] : 1955 Provider: Dr. Aguila Mcduffie MD Age/Sex: 69/M Location: [facility] 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 There are [...] Signature: Date (if applicable) CC: Dr. Martir Bolanos MD ~ [facility] Work Phone: Reason for referral (narrative)* Diagnostic Procedure Only (Routine) - Authorized Specialty Diagnoses / Procedures Referred By Contac t Referred To Contact US IMAGING Diagnoses Elevated liver enzymes Procedures US ABD RIGHT UPPER QUADRANT US ABDOMINAL REAL TIME W/IMAGE LIMITED Martir Bolanos MD [address] [place] [address] [facility] [address] Referral ID Status Reason Start Date Expiration Date Visits Requested Visits Authorized [id number] Authorized Auto-Generat ed Referral 07/24/2024 08/23/2025 1 1 [facility] for referral (narrative)No reason for referral information [facility] Work Phone: Summary Purpose Family History No Family History Records Found Relationship Condition Age at Onset Recorded Date/T sanjeev mother Disorder of thyroid Unknown father Cardiac disease Unknown Advance Directives No Advanced Directives Records FoundDocuments on File Type Date Recorded Patient Reception Expl anation Advance Directive(s) 05/05/2019 9:05 AM Advance Directive(s) 04/21/2019 9:37 AM Documents on File Type Date Recorded Patient Reception Expl anation Advance Directive(s) 05/05/2019 9:05 AM Advance Directive(s) 04/21/2019 9:37 AM Documents on File Type Date Recorded Patient Reception Expl anation Advance Directive(s) 07/24/2024 9:49 AM Reason for Referral Specialty Diagnoses / Procedures Referred By Justine tyler Referred To Contact Cardiology Diagnoses Coronary artery disease involving unga coronary artery of unga heart without angina pectoris Procedures CONSULT TO CARDIOLOGY Martir Bolanos MD [address] [place] [address] Referral ID Status Reason Start Date Expiration Date Visits Requested Visits Authorized [id number] Ref Not Required PCP Requested Referral 10/14/2021 10/14/2022 1 1 Specialty Diagnoses / Procedures Referred By Justine tyler [facility] Diagnoses Coronary artery disease involving unga coronary artery of unga heart without angina pectoris Procedures ECG COMPLETE ECG ROUTINE ECG W/LEAST 12 LDS W/I&R Martir Bolanos MD [address] [place] [address] [facility] [place] [address] [place] [address] Referral ID Status Reason Start Date Expiration Date Visits Re quested Visits Authorized [id number] Closed 10/14/2021 07/01/2022 1 1 Specialty Diagnoses / Procedures Referred By Justine tyler Referred To Contact Urology Diagnoses Abnormal urinary stream Procedures CONSULT TO UROLOGY OFFICE/OUTPATIENT [facility] MDM 60-74 MINUTES Martir Bolanos MD [address] [place] [address] Referral ID Status Reason Start Date Expiration Date Visits Requested Visits Authorized [id number] Pending Review PCP Requested Referral 3 04/17/2024 1 1 Specialty Diagnoses / Procedures Referred By Justine tyler Referred To Contact [facility] Diagnoses Spasm of muscle of lower back Stiff neck Procedures CONSULT TO PHYSICAL THERAPY PHYSICAL THERAPY EVALUATION [facility] COMPLEX 45 MINS Martir Bolanos MD [address] [place] [address] [facility] [place] [address] [place] [address] Referral ID Status Reason Start Date Expiration Date Visits Requested Visits Authorized [id number] Pending Review Auto-Generat ed Referral 05/10/2023 05/09/2024 1 1 Chief Complaint and Reason for Visit Chief Complaint Amb Documentation [place], CABG (PREV [facility] CARD.) S/P CABG Reason for Visit Essential hypertensi on H/O coronary artery bypass surgery Hyperlipidemia Chief Complaint Admit Date 1 Y FU April 21, 2025 1 0:55am Reason for Visit Admit Date Essential hypertension April 21 10:55am H/O coronary artery bypass surgery Octob 2024 10:55am Hyperlipidemia April 21, 2025 1 [...] content) DATE CREATED AUTHOR 12/19/2017 Katelynn Cintron [facility] DATE CREATED AUTHOR 'S ORGANIZ ATION 10/08/2022 [facility] ([place]) DATE CREATED AUTHOR AUTHOR'S ORGANIZ ATION 05/03/2023 [facility] DATE CREATED AUTHOR AUTHOR'S ORGANIZ ATION 01/30/2025 [facility] DATE CREATED AUTHOR AUTHOR'S ORGANIZ ATION 05/14/2025 [facility] Source Comments (unrecognize d section and content) In the event this informatio n is protected by the Federal Confidentiality of Alcohol and Drug Abuse Patient Records regulations: The Federal rules restrict any use of the information to criminally investigate or prosecute any alcohol or drug abuse patient.[facility] the event this information is protected by the Federal Confidentiality of Alcohol and Drug Abuse Patient Records regulations: The Federal rules restrict any use of the information to criminally investigate or prosecute any alcohol or drug abuse patient.[facility] the event this information is protected by the Federal Confidentiality of Alcohol and Drug Abuse Patient Records regulations: The Federal rules restrict any use of the information to criminally investigate or prosecute any alcohol or drug abuse patient.[facility] the event this information is protected by the Federal Confidentiality of Alcohol and Drug Abuse Patient Records regulations: The Federal rules restrict any use of the information to criminally investigate or prosecute any alcohol or drug abuse patient.[facility] the event this information is protected by the Federal Confidentiality of Alcohol and Drug Abuse Patient Records regulations: The Federal rules restrict any use of the information to criminally investigate or prosecute any alcohol or drug abuse patient.[facility] the event this information is protected by the Federal Confidentiality of Alcohol and Drug Abuse Patient Records regulations: The Federal rules restrict any use of the information to criminally investigate or prosecute any alcohol or drug abuse patient.[facility] the event this information is protected by the Federal Confidentiality of Alcohol and Drug Abuse Patient Records regulations: The Federal rules restrict any use of the information to criminally investigate or prosecute any alcohol or drug abuse patient.[facility] the event this information is protected by the Federal Confidentiality of Alcohol and Drug Abuse Patient Records regulations: The Federal rules restrict any use of the information to criminally investigate or prosecute any alcohol or drug abuse patient.[facility] the event this information is protected by the Federal Confidentiality of Alcohol and Drug Abuse Patient Records regulations: The Federal rules restrict any use of the information to criminally investigate or prosecute any alcohol or drug abuse patient.[facility] the event this information is protected by the Federal Confidentiality of Alcohol and Drug Abuse Patient Records regulations: The Federal rules restrict any use of the information to criminally investigate or prosecute any alcohol or drug abuse patient.[facility] the event this information is protected by the Federal Confidentiality of Alcohol and Drug Abuse Patient Records regulations: The Federal rules restrict any use of the information to criminally investigate or prosecute any alcohol or drug abuse patient.[facility] the event this information is protected by the Federal Confidentiality of Alcohol and Drug Abuse Patient Records regulations: The Federal rules restrict any use of the information to criminally investigate or prosecute any alcohol or drug abuse patient.[facility] the event this information is protected by the Federal Confidentiality of Alcohol and Drug Abuse Patient Records regulations: The Federal rules restrict any use of the information to criminally investigate or prosecute any alcohol or drug abuse patient.[facility] the event this information is protected by the Federal Confidentiality of Alcohol and Drug Abuse Patient Records regulations: The Federal rules restrict any use of the information to criminally investigate or prosecute any alcohol or drug abuse patient.[facility] the event this information is protected by the Federal Confidentiality of Alcohol and Drug Abuse Patient Records regulations: The Federal rules restrict any use of the information to criminally investigate or prosecute any alcohol or drug abuse patient.[facility] the event this information is protected by the Federal Confidentiality of Alcohol and Drug Abuse Patient Records regulations: The Federal rules restrict any use of the information to criminally investigate or prosecute any alcohol or drug abuse patient.[facility] the event this information is protected by the Federal Confidentiality of Alcohol and Drug Abuse Patient Records regulations: The Federal rules restrict any use of the information to criminally investigate or prosecute any alcohol or drug abuse patient.[facility] the event this information is protected by the Federal Confidentiality of Alcohol and Drug Abuse Patient Records regulations: The Federal rules restrict any use of the information to criminally investigate or prosecute any alcohol or drug abuse patient.[facility] the event this information is protected by the Federal Confidentiality of Alcohol and Drug Abuse Patient Records regulations: The Federal rules restrict any use of the information to criminally investigate or prosecute any alcohol or drug abuse patient.[facility] the event this information is protected by the Federal Confidentiality of Alcohol and Drug Abuse Patient Records regulations: The Federal rules restrict any use of the information to criminally investigate or prosecute any alcohol or drug abuse patient.[facility] Center[facility] the event this information is protected by the Federal Confidentiality of Alcohol and Drug Abuse Patient Records regulations: The Federal rules restrict any use of the information to criminally investigate or prosecute any alcohol or drug abuse patient.[facility] the event this information is protected by the Federal Confidentiality of Alcohol and Drug Abuse Patient Records regulations: The Federal rules restrict any use of the information to criminally investigate or prosecute any alcohol or drug abuse patient.[facility] CenterIn the event this information is protected by the Federal Confidentiality of Alcohol and Drug Abuse Patient Records regulations: The Federal rules restrict any use of the information to criminally investigate or prosecute any alcohol or drug abuse patient.[facility] CenterIn the event this information is protected by the Federal Confidentiality of Alcohol and Drug Abuse Patient Records regulations: The Federal rules restrict any use of the information to criminally investigate or prosecute any alcohol or drug abuse patient.[facility] CenterIn the event this information is protected by the Federal Confidentiality of Alcohol and Drug Abuse Patient Records regulations: The Federal rules restrict any use of the information to criminally investigate or prosecute any alcohol or drug abuse patient.[facility] CenterIn the event this information is protected by the Federal Confidentiality of Alcohol and Drug Abuse Patient Records regulations: The Federal rules restrict any use of the information to criminally investigate or prosecute any alcohol or drug abuse patient.[facility] CenterIn the event this information is protected by the Federal Confidentiality of Alcohol and Drug Abuse Patient Records regulations: The Federal rules restrict any use of the information to criminally investigate or prosecute any alcohol or drug abuse patient.[facility] CenterIn the event this information is protected by the Federal Confidentiality of Alcohol and Drug Abuse Patient Records regulations: The Federal rules restrict any use of the information to criminally investigate or prosecute any alcohol or drug abuse patient.[facility] CenterIn the event this information is protected by the Federal Confidentiality of Alcohol and Drug Abuse Patient Records regulations: The Federal rules restrict any use of the information to criminally investigate or prosecute any alcohol or drug abuse patient.[facility] CenterIn the event this information is protected by the Federal Confidentiality of Alcohol and Drug Abuse Patient Records regulations: The Federal rules restrict any use of the information to criminally investigate or prosecute any alcohol or drug abuse patient.[facility] CenterIn the event this information is protected by the Federal Confidentiality of Alcohol and Drug Abuse Patient Records regulations: The Federal rules restrict any use of the information to criminally investigate or prosecute any alcohol or drug abuse patient.[facility] CenterIn the event this information is protected by the Federal Confidentiality of Alcohol and Drug Abuse Patient Records regulations: The Federal rules restrict any use of the information to criminally investigate or prosecute any alcohol or drug abuse patient.[facility] Care Teams (unrecognized sec tion and content) [employer] Furnishings Salesperson Relationship Specialty Start Date End Date Martir Bolanos MD [address] [place] [address] PCP - General Internal Medicine 06/08/11 [employer] Salesperson Relationship Specialty Start Date End Date Martir Bolanos MD [address] [place] [address] PCP - General Internal Medicine 06/08/11 [employer] Salesperson Relationship Specialty Start Date End Date Martir Bolanos MD [address] [place] [address] PCP - General Internal Medicine 06/08/11 [employer] Furn[employer] Salesperson Relationship Specialty Start Date End Date Martir Bolanos MD [address] [place] [address] PCP - General Internal Medicine 06/08/11 [employer] Furnish[employer] Salesperson Relationship Specialty Start Date End Date Martir Bolanos MD [address] [place] [address] PCP - General Internal Medicine 06/08/11 Men[employer] Furnish[employer] Salesperson Relationship Specialty Start Date End Date Martir Bolanos MD [address] [facility] [place] [address] PCP - General Internal Medicine 06/08/11 Men[employer] Furnish[employer] Salesperson Relationship Specialty Start Date End Date Martir Bolanos MD [address] [place] [address] PCP - General Internal Medicine 06/08/11 [employer] Furnish[employer] Salesperson Relationship Specialty Start Date End Date Martir Bolanos MD [address] [place] [address] PCP - General Internal Medicine 06/08/11 [employer] Furnish[employer] Salesperson Relationship Specialty Start Date End Date Martir Bolanos MD [address] [place] [address] PCP - General Internal Medicine 06/08/11 [employer] Furnish[employer] Salesperson Relationship Specialty Start Date End Date Martir Bolanos MD [address] [place] [address] PCP - General Internal Medicine 06/08/11 [employer] Furnish[employer] Salesperson Relationship Specialty Start Date End Date Martir Bolanos MD [address] [place] [address] PCP - General Internal Medicine 06/08/11 [employer] Furnish[employer] Salesperson Relationship Specialty Start Date End Date Martir Bolanos MD [address] [place] [address] PCP - General Internal Medicine 06/08/11 [employer] Furnish[employer] Salesperson Relationship Specialty Start Date End Date Martir Bolanos MD [address] [place] [address] PCP - General Internal Medicine 06/08/11 [employer] Furnish[employer] Salesperson Relationship Specialty Start Date End Date Martir Bolanos MD [address] [place] [address] PCP - General Internal Medicine 06/08/11 [employer] Furn[employer] Salesperson Relationship Specialty Start Date End Date Martir Bolanos MD [address] [place] [address] PCP - General Internal Medicine 06/08/11 [employer] Furn[employer] Salesperson Relationship Specialty Start Date End Date Martir Bolanos MD [address] [place] [address] PCP - General Internal Medicine 06/08/11 [employer] Furnish[employer] Salesperson Relationship Specialty Start Date End Date Martir Bolanos MD [address] [place] [address] PCP - General Internal Medicine 06/08/11 [employer] Furnish[employer] Salesperson Relationship Specialty Start Date End Date Martir Bolanos MD [address] [place] [address] PCP - General Internal Medicine 06/08/11 [employer] Furnish[employer] Salesperson Relationship Specialty Start Date End Date Martir Bolanos MD [address] [place] [address] PCP - General Internal Medicine 06/08/11 [employer] Furn[employer] Salesperson Relationship Specialty Start Date End Date Martir Bolanos MD [address] [place] [address] PCP - General Internal Medicine 06/08/11 Jennifer Bradford, GPS NAVIGATION INSTALLER.IMPREGNATING MACHINE OPERATOR [address] [place] [address] Box Packer Internal Medicine 06/09/24 [employer] Salesperson Relationship Specialty Start Date End Date Martir Bolanos MD [address] [place] [address] PCP - General Internal Medicine 06/08/11 Jennifer Bradford, GPS NAVIGATION INSTALLER.IMPREGNATING MACHINE OPERATOR [address] [place] [address] [employer] Packer Internal Medicine 06/09/24 [employer] Salesperson Relationship Specialty Start Date End Date Martir Bolanos MD [address] [place] [address] PCP - General Internal Medicine 06/08/11 Jennifer Bradford, GPS NAVIGATION INSTALLER.IMPREGNATING MACHINE OPERATOR [address] [place] [address] [employer] P[employer] Internal Medicine 06/09/24 [employer] Furn[employer] Salesperson Relationship Specialty Start Date End Date Martir Bolanos MD [address] [place] [address] PCP - General Internal Medicine 06/08/11 Jennifer Bradford, GPS NAVIGATION INSTALLER.IMPREGNATING MACHINE OPERATOR [address] [place] [address] [employer] Packer Internal Medicine 06/09/24 [employer] Furn[employer] Salesperson Relationship Specialty Start Date End Date Martir Bolanos MD [address] [place] [address] PCP - General Internal Medicine 06/08/11 Jennifer Bradford, GPS NAVIGATION INSTALLER.IMPREGNATING MACHINE OPERATOR [address] [place] [address] [employer] P[employer] Internal Medicine 06/09/24 [employer] Furn[employer] Salesperson Relationship Specialty Start Date End Date Martir Bolanos MD [address] [place], [place] [address] PCP - General Internal Medicine 06/08/11 Jennifer Bradford, GPS NAVIGATION INSTALLER.IMPREGNATING MACHINE OPERATOR [address], [place] [address] [employer] Internal Medicine 06/09/24 Team Status: Active Member Role/Relationship Status Dates Dr. Martir Bolanos MD Primary care physician Activ e Team Status: Inactive Member Role/Relationship Status Dates Dr. Martir Bolanos MD Primary care physician Activ e Start: April 21, 2025 End: April 21, 2025 Dr. Martir Bolanos MD Referring Provider Active Start: April 21, 2025 End: April 21, 2025 Dr. Cedrick Mcduffie MD Attending physician Active Start: April 21, 2025 End: April 21, 2025 Reason for Visit (unrecogniz ed section and content) Reason Comments Physical Therapy Specialty Diagnoses / Procedures Referred By Justine tyler Referred To Contact [facility] Diagnoses Spasm of muscle of lower back Stiff neck Procedures CONSULT TO PHYSICAL THERAPY PHYSICAL THERAPY EVALUATION [facility] COM[facility]X 45 [facility] Martir Bolanos MD [address] [place] [address] [facility] [place] [address] [place] [address] Referral ID Status Reason Start Date Expiration Date Visits Requested Visits Authorized [id number] Authorized Auto-Generat ed Referral 07/02/2022 07/01/2023 99 99 Reason Comments F/U 6 months Specialty Diagnoses / Procedures Referred By Contac t Referred To Contact Internal Medicine / INTERNAL MEDICINE Diagnoses 6 MO FU Procedures 4C EST Self Martir Bolanos MD [address] [place] [address] Referral ID Status Reason Start Date Expiration Date V isits Requested Visits Authorized [id number] Closed Financial Clearance Required - OON Payor Patient Cleared INN/SMCP Payor Auth Obtained 10/14/2021 07/01/2022 1 1 Reason Comments F/U 6 months Reason Onset Date Comments Refill Request 06/13/2022 Reason Comments Refill Request Reason Comments Diabetic Retinopathy Evaluation Specialty Diagnoses / Procedures [facility] To Contact Ophthalmology Diagnoses Type 2 diabetes mellitus with stage 2 chronic kidney disease, without long-term current use of insulin (HCC) Procedures CONSULT TO OPHTHALMOLOGY OFFICE/OUTPATIENT NEW HIGH MDM 60-74 MINUTES Martir Bolanos MD [address] [place] [address] Referral ID Status Reason Start Date Expiration Date Visits Requested Visits Authorized [id number] Pending Review PCP Requested Referral 10/17/2022 10/17/2023 1 1 Reason Comments Blood Pressure Check Reason Comments bp heavenly Reason Onset Date Comments F/U 6 months Immunizations 04/18/2023 Flu vaccination Reason Comments Follow Up Abnormal urinary stream Specialty Diagnoses / Procedures [facility] Referred To Contact UROLOGY Diagnoses Abnormal urinary stream [R39.198] Procedures Abnormal urinary stream [R39.198] Milton Andino PA-C [address] [place] [address] [facility] [address] [place] [address] Referral ID Status Reason Start Date Expiration Date Visits Requested Visits Authorized [id number] Pending Review OON/Self Pay Override 3 10/15/2023 1 1 Reason Comments Appointment Reason Comments Patient Update on back/neck pain an d medication Reason Comments PT Eval Reason Comments hypertensive retinopathy follow up Reason Comments PT Discharge Specialty Diagnoses / Procedures [facility] Referred To Contact Physical Therapy / PHYSICAL THERAPY Diagnoses M62.830 (ICD-10-CM) - Spasm of muscle of lower back M43.6 (ICD-10-CM) - Stiff neck Procedures EST RS PHYSICAL THERAPY Martir Bolanos MD [address] [place] [address] Neri Zazueta PT Referral ID Status Reason Start Date Expiration Date V isits Requested Visits Authorized [id number] Authorized 07/02/2023 07/01/2024 99 99 Reason Onset [...] US Specialty Diagnoses / Procedures Referred By Contac t Referred To Contact US IMAGING Diagnoses Elevated liver enzymes Procedures US ABD RIGHT UPPER QUADRANT US ABDOMINAL REAL TIME W/IMAGE LIMITED Martir Bolanos MD [address] [place] [address] Phone: tel: fax: [place] [phone] Referral ID Status Reason Start Date Expiration Date V isits Requested Visits Authorized [id number] Closed Auto-Generate d Referral 07/24/2024 08/23/2025 1 [...] BE BASED ON THE PRIMARY CLINICAL RECORDS. [employer] provides no warranty or guarantee of the accuracy or completeness of information in this document.
== END | disposition home or self-care (01) ==
LOC: CVS 13:41
PROVIDERS: PCP Internal Medicine; Referring Provider Internal Medicine Cardiovascular Disease; Visit Provider Internal Medicine Cardiovascular Disease
DX: I10 Essential (primary) hypertension (principal); I25.10 Atherosclerotic heart disease of native coronary artery without angina pectoris
CPT/HCPCS: 93306; Q9957; A4216; C8929